=== PATIENT | male | born 1975 | race Caucasian/White ===

== ENCOUNTER 2018-12-10 14:40 | Inpatient (IN) | payer MEDICAID ==
[~2018-12-10] VITALS: Ht 167.6 cm; Wt 67.1 kg
--- NOTE | 2018-12-10 15:07 | NUR ---
Pt arrived for nursing care facility for abnormal lab. Placed pt on vent with current setting. pt is trach with Portex 7. No SOB noted at this time. vent alarm on and audible. vent plugged into red outlet and BMV at bedside.
--- NOTE | 2018-12-10 15:09 | NUR ---
PT IS IN ROOM #1B. DR OVALLE EVALUATED THE PT.
[2018-12-10 15:20] LABS: BASOPHILS % (AUTO) 0.3 % (0.0-2.0); LYMPHOCYTES # (AUTO) 0.4 K/uL (20.0-40.0)
[2018-12-10 15:22] LABS: EOSINOPHILS # (AUTO) 0.4 K/uL (0.0-0.7); EOSINOPHILS % (AUTO) 3.1 % (0.0-7.0); LYMPHOCYTES % (AUTO) 3.8 % (20.5-51.5); MEAN CORPUSCULAR HEMOGLOBIN 25.1 uug (23.8-33.4); MEAN CORPUSCULAR HGB CONC 32 g/dL (32.5-36.3); MEAN CORPUSCULAR VOLUME 77.5 fL (73.0-96.2); MONOCYTES # (AUTO) 0.3 K/uL (2.0-10.0); NEUTROPHILS # (AUTO) 10.4 K/uL (1.8-8.9); NEUTROPHILS % (AUTO) 89.8 % (38.5-71.5); PLATELET COUNT (AUTO) 340 K/uL (152-348); WHITE BLOOD COUNT (AUTO) 11.6 K/uL (3.6-10.2)
[2018-12-10 15:23] LABS: CREATININE 2.7 mg/dL (0.6-1.3); POTASSIUM 3.6 mmol/L (3.5-5.1)
[2018-12-10 15:25] LABS: RED BLOOD CELL COUNT(AUTO) 2.26 MIL/uL (4.06-5.63)
[2018-12-10 15:26] LABS: HEMATOCRIT 17.5 % (36.7-47.1); HEMOGLOBIN 5.7 g/dL (12.5-16.3)
[2018-12-10 15:29] LABS: BILIRUBIN,DIRECT 0.3 mg/dL (0.0-0.2); BILIRUBIN,TOTAL 0.7 mg/dL (0.2-1.0); TOTAL PROTEIN, SERUM 7.1 g/dL (6.4-8.2)
[2018-12-10] MEDS ORDERED: ACET-2605 GT (15:49)
[2018-12-10] MEDS ORDERED: IV NS 1000 ML 1,000 ML IV PRN ×2 (16:07→19:10)
[2018-12-10] MEDS ORDERED: BISA10SU61 RC (16:09)
[2018-12-10] MEDS ORDERED: CHLO473M3 PO (16:09)
[2018-12-10] MEDS ORDERED: EPOE1VIA6 SQ (16:09)
[2018-12-10] MEDS ORDERED: INSU100V7 SQ (16:09)
[2018-12-10] MEDS ORDERED: MULT-213 GT (16:09)
[2018-12-10] MEDS ORDERED: ACET-2154 GT (16:09)
[2018-12-10] MEDS ORDERED: CHLO473M3 TOP (16:09)
[2018-12-10] MEDS ORDERED: ONDA4TAB5 GT (16:09)
[2018-12-10] MEDS ORDERED: NA P133E RC (16:09)
[2018-12-10] MEDS ORDERED: MAGN400O6 GT (16:09)
[2018-12-10] MEDS ORDERED: HYDR-4077 GT (16:09)
[2018-12-10] MEDS ORDERED: ARGI1POW17 GT (16:09)
[2018-12-10] MEDS ORDERED: INSU100V39 SQ (16:09)
[2018-12-10] MEDS ORDERED: SENN-18 GT (16:09)
[2018-12-10] MEDS ORDERED: CHLO25TA2 GT (16:09)
[2018-12-10] MEDS ORDERED: AMLO5TAB9 GT (16:09)
[2018-12-10] MEDS ORDERED: CRAN3875 GT (16:09)
[2018-12-10] MEDS ORDERED: ASCO500P18 GT (16:09)
[2018-12-10] MEDS ORDERED: OMEP20TA5 GT (16:09)
[2018-12-10] MEDS ORDERED: ATROVENT IH (16:09)
[2018-12-10] MEDS ORDERED: ALBU2.5V38 IH ×2 (16:09)
[2018-12-10] MEDS ORDERED: LABE200T5 GT (16:09)
[2018-12-10] MEDS ORDERED: HYDR-3326 GT (16:09)
[2018-12-10] MEDS ORDERED: ONDANSETRON 4 MG/2 ML VIAL IV PRN (16:15)
[2018-12-10] MEDS ORDERED: ACETAMINOPHEN 325 MG TABLET PO PRN (16:15)
[2018-12-10] MEDS ORDERED: INSULIN REGULAR, HUMAN 300 UNITS/3 ML VIAL SQ PRN (16:15)
[2018-12-10] MEDS ORDERED: MAGNESIUM HYDROXIDE 30 ML LIQUID UDC PO PRN (16:15)
[2018-12-10 16:26] LABS: *BILIRUBIN,URIN NEGATIVE (NEGATIVE); *CLARITY,URINE CLOUDY (CLEAR); *COLOR,URINE YELLOW (YELLOW); *KETONES,URINE NEGATIVE (NEGATIVE); *UROBILINOGEN,URINE 0.2 E.U./dl (NORMAL); LEUKOCYTE ESTERASE ,URINE 3+ (NEGATIVE); NITRITE, URINE NEGATIVE (NEGATIVE); PH,URINE 5.5 (5.0-8.0); UGLUCOSE NEGATIVE (NEGATIVE)
[2018-12-10 16:31] LABS: *BLOOD, URINE TRACE (NEGATIVE)
[2018-12-10 16:33] LABS: BACTERIA,URINE MODERATE /HPF (NONE SEEN); SQUAMOUS EPITHELIAL CELL,UR FEW /HPF (NONE SEEN); WBC,URINE 20-50 /HPF (0-3); YEAST,URINE MANY /HPF (NONE SEEN)
[2018-12-10 16:40] LABS: BAND % (MANUAL) 20 % (0-10); EOSINOPHILS % (MANUAL) 4 % (0-8); LYMPHOCYTES % (MANUAL) 3 % (20-40); MONOCYTES % (MANUAL) 3 % (2-10); NEUTROPHILS % (MANUAL) 70 % (42-75)
[2018-12-10] MEDS ORDERED: PIPERACILLIN SODIUM/TAZOBACTAM 3.375 G in IV DEXTROSE 5% 50 ML IV ONE (16:45)
[2018-12-10] MEDS ORDERED: PIPERACILLIN/TAZOBACTAM/D5W 50 ML IV ONE (17:09)
[2018-12-10] MEDS ORDERED: VANCOMYCIN 1G/D5W 200 ML PIGGYBACK IV ONE (17:15)
[2018-12-10] MEDS ORDERED: FUROSEMIDE 40 MG/4 ML VIAL IV ONE (17:15)
[2018-12-10] MEDS ORDERED: VANCOMYCIN IV 200 ML ONE (17:24)
--- NOTE | 2018-12-10 17:30 | NUR ---
PT WAS TRANSFERED TO [facility] ROOM #311. REPORT WAS GIVEN TO YESSENIA BIRMINGHAM.
--- NOTE | 2018-12-10 17:59 | NUR ---
Patient in from ER. via gurney, transfer to bed with no injury. Trache to vent: Portex #8, A/C 18, Tv 400, Peep +5, FIO2 40%. IV line peripheral to RAC G18, LAC G20, both patent and RAC infusing with first dose of vancomycin. Upon admission patient SBP of 143/70, HR of 91, oral temp of 99.6. In ER. medicated for fever of 103.. patient non-verbal if needed picture taken will be endorse as well as blood transfusion. Addendum: 12/10/18 at 1832 by TINY BUENO RN Admitting physician called to be notified of admission awaiting call back.
[2018-12-10 18:00] VITALS: BP 143/70
[2018-12-10] MEDS ORDERED: FLEET ENEMA 133 ML BOTTLE RC PRN (19:00)
[2018-12-10] MEDS ORDERED: BISACODYL 10 MG SUPP.RECT RC PRN (19:00)
[2018-12-10] MEDS ORDERED: ONDANSETRON HCL 4 MG TABLET GT PRN (19:00)
[2018-12-10] MEDS ORDERED: ALBUTEROL SULFATE 2.5 MG/3 ML NEBU IH PRN (19:00)
[2018-12-10] MEDS ORDERED: MAGNESIUM HYDROXIDE 30 ML LIQUID UDC GT PRN (19:00)
--- NOTE | 2018-12-10 19:11 | NUR ---
Bedside report given to serina Saunders pending orders and call back from Attending physician endorse.
[2018-12-10] MEDS ORDERED: IV D5 1/2 NS 1000 ML 1,000 ML IV PRN (19:45)
[2018-12-10 19:55] VITALS: BP 139/65
--- NOTE | 2018-12-10 20:00 | NUR ---
RECEIVED PT OPENS HIS EYES TO NOXIOUS STIMULI. TRACH TO VENT W/ SETTINGS OF AC-18, TV-400, FIO2-40%, PEEP-+5 W/ O2 SAT OF 100%. SUCTIONED VIA TRACH W/ SCANTY AMT. OF TANNISH THICK MUCOUS. G-TUBE INTACT & CLAMPED. 2 HEP LOCK INTACT & PATENT ON R & L AC , FLUSHED W/ NS 3CC. HAD LARGE AMT. OF SOFT BROWNISH , BEDBATH DONE. WOUND CARE ON HIS BOTH INNER BUTTOCKS DONE. REPOSITIONED PT ON HIS SIDE W/ HOB ELEVATED.TEMP -102 ORALLY. COOLING MEASURES APPLIED. CHANGED ORDER OF PO TYLENOL TO SUPP., PT IS NPO.
[2018-12-10] MEDS: ACETAMINOPHEN 650 MG SUPP.RECT RC PRN (20:10)
--- NOTE | 2018-12-10 20:10 | NUR ---
TYLENOL SUPP 650MG GIVEN FOR ELEVATED TEMP.
--- NOTE | 2018-12-10 21:17 | NUR ---
PHARMACY NOTES (VANCOMYCIN DOSING) S: 43 yo male with diagnosis of sepsis of unknown origin, ordered Zosyn and Vancomycin O: BUN/SCR 71/2.7, WBC 11.6, TEMP 103, DOSING WT 157 LBS A/P: PT received Vancomycin 1gm in ER @ 17:16; since SCR is elevated will dose by fall of levels. ordered a level tomorrow ~ 1700 will continue to follow up
--- NOTE | 2018-12-10 21:29 | NUR ---
BLOOD TRANSFUSION STARTED ORDERED.
[2018-12-10 21:30] VITALS: BP 110/73
[2018-12-10 21:45] VITALS: BP 115/71
[2018-12-10] MEDS: Z GUARD REMEDY PASTE 57 GM TUBE TOP SCH (21:48)
[2018-12-10] MEDS: BLOOD SUGAR DIAGNOSTIC 1 EACH STRIP VI SCH ×2 (21:51→21:52)
[2018-12-10] MEDS: hydrALAZINE HCL 50 MG TABLET GT SCH (22:00)
[2018-12-10] MEDS: PIPERACILLIN SODIUM/TAZOBACTAM 3.375 G in IV DEXTROSE 5% 50 ML IV SCH (22:13)
[2018-12-11] VITALS (15 sets, daily range): BP systolic 112–136; BP diastolic 57–79
[2018-12-11] MEDS: ALBUTEROL SULFATE 2.5 MG/3 ML NEBU IH SCH ×4 (00:45→19:31)
--- NOTE | 2018-12-11 01:13 | NUR ---
unable to remove g-tube., resistance noted. will let dr. busch inform in am.
--- NOTE | 2018-12-11 01:35 | NUR ---
sent specimen from g-tube site to lab for culture.
--- NOTE | 2018-12-11 03:40 | NUR ---
2ND UNIT BLOOD TRANSFUSION DONE.
--- NOTE | 2018-12-11 04:07 | NUR ---
PT ON CONT GALINDO VENT WITH PORTEX # [address] AND SECURED, A/C 18, VT 400ML, 40%, PEEP5, PT DOES ASSIST AT TIMES, NO VERBAL RESPONSE, SUCTIONED PINKISH TINGE AND PALE YELL TINGE SECRETIONS, AND SUCTION MOUTH WITH DAQUAN TOLL WELL, ORAL CARE DONE AND TRACH CARE, ALL VENT ALARMS GOOD, NO VENT CHANGES MADE, NEB INLINE X 2 WITH ALBUTEROL, VENT PLUGGED INTO RED OUTLET, WITH CONT PULSE OXY, SAT 100%, AMBU BAG AT BEDSIDE, PT STABLE.Luisa GUERRAP Addendum: 12/11/18 at 0410 by BUBBA MARTÍNEZ RT Amended: Links added.
[2018-12-11] MEDS: hydrALAZINE HCL 50 MG TABLET GT SCH ×3 (05:20→21:32)
[2018-12-11] MEDS: PIPERACILLIN SODIUM/TAZOBACTAM 3.375 G in IV DEXTROSE 5% 50 ML IV SCH ×3 (05:35→21:32)
[2018-12-11] MEDS: PANTOPRAZOLE SODIUM 40 MG TABLET.DR PO SCH (06:07)
[2018-12-11] MEDS: BLOOD SUGAR DIAGNOSTIC 1 EACH STRIP VI SCH ×4 (06:32→20:58)
[2018-12-11 07:04] LABS: CREATININE 2.8 mg/dL (0.6-1.3); PHOSPHOROUS 4.6 mg/dL (2.5-4.9); POTASSIUM 3.6 mmol/L (3.5-5.1)
[2018-12-11 07:10] LABS: BASOPHILS % (AUTO) 0.3 % (0.0-2.0); EOSINOPHILS # (AUTO) 0.5 K/uL (0.0-0.7); EOSINOPHILS % (AUTO) 4.4 % (0.0-7.0); LYMPHOCYTES # (AUTO) 0.8 K/uL (20.0-40.0); LYMPHOCYTES % (AUTO) 7.1 % (20.5-51.5); MEAN CORPUSCULAR HEMOGLOBIN 26.3 uug (23.8-33.4); MEAN CORPUSCULAR HGB CONC 33 g/dL (32.5-36.3); MEAN CORPUSCULAR VOLUME 80.1 fL (73.0-96.2); MONOCYTES # (AUTO) 0.5 K/uL (2.0-10.0); MONOCYTES % (AUTO) 4.4 % (0.0-11.0); NEUTROPHILS # (AUTO) 9.4 K/uL (1.8-8.9); NEUTROPHILS % (AUTO) 83.8 % (38.5-71.5); PLATELET COUNT (AUTO) 315 K/uL (152-348); WHITE BLOOD COUNT (AUTO) 11.2 K/uL (3.6-10.2)
[2018-12-11 07:30] LABS: MAGNESIUM 4.5 mg/dL (1.8-2.4)
[2018-12-11 07:31] LABS: HEMOGLOBIN 7.1 g/dL (12.5-16.3)
[2018-12-11 07:32] LABS: HEMATOCRIT 21.6 % (36.7-47.1)
--- NOTE | 2018-12-11 07:37 | NUR ---
PT RECEIVED TRACH TO VENT ON CMV, PORTEX #8 TRACH IS PATENT AND SECURE. PT IS ON A GALINDO VENT ON SETTINGS OF A/C 18, VT 400, PEEP +5, AND 40% FIO2. VENT PARAMETERS AND ALARMS CHECKED, ALARMS ARE AUDIBLE. PT IS TOLERATING VENT WELL, NO SOB NOTED. BVM AT BEDSIDE. VENT PLUGGED INTO RED OUTLET. SUCTION PRN. WILL CONTINUE TO MONITOR.
[2018-12-11] MEDS: CHLORHEXIDINE GLUCONATE 15 ML MOUTHWASH MM SCH ×2 (09:00→18:03)
[2018-12-11] MEDS: CHLORTHALIDONE 25 MG TABLET GT SCH (09:00)
[2018-12-11] MEDS: AMLODIPINE 5 MG TABLET GT SCH (09:00)
[2018-12-11] MEDS ORDERED: Medication Not On Formulary EA (Omeprazole 20 MG) GT SCH (09:00)
[2018-12-11] MEDS: SENNOSIDES 1 TABLET GT SCH ×2 (09:00→17:00)
[2018-12-11] MEDS: Z GUARD REMEDY PASTE 57 GM TUBE TOP SCH ×2 (09:00→20:49)
[2018-12-11] MEDS ORDERED: MAGNESIUM HYDROXIDE 30 ML LIQUID UDC GT PRN (10:08)
[2018-12-11] MEDS ORDERED: VANCOMYCIN IV 1,000 MG in IV DEXTROSE 5% 250 ML IV ONE (12:00)
--- NOTE | 2018-12-11 13:47 | NUR ---
PHARMACY NOTES (VANCOMYCIN DOSING) S: 43 yo male with diagnosis of sepsis of unknown origin, ordered Zosyn and Vancomycin O: BUN/SCR 74/2.8, WBC 11.6 (12/10), TEMP 100.3, DOSING WT 157 LBS Random level today with am labs: 18.1 A/P: Due to reduced renal function, will continue to dose per level at this time. Per today's random, dosed another 1gm vanco today at 1200. Will check renal function in am and decide when to order next random for further dosing. Will continue to follow
[2018-12-11] MEDS ORDERED: IV NORMAL SALINE 1000 ML BAG IV ONE ×2 (14:05)
[2018-12-11] MEDS ORDERED: ACETAMINOPHEN 650 MG SUPP.RECT RC PRN (14:15)
[2018-12-11] MEDS: ACETAMINOPHEN 650 MG SUPP.RECT RC PRN ×2 (14:18→23:56)
--- NOTE | 2018-12-11 14:55 | NUR ---
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 DEFER TO MD FOR G TUBE (CLAMPED). FIRST STEP LOW AIRLOSS MATTRESS ORDERED. ALL SKIN PROTECTION AND WOUND CARE RECOMMENDATIONS MADE AND DISCUSSED WITH NURSING STAFF. WILL SEE JAXON. IN AGREEMENT WITH PLAN OF CARE. Addendum: 12/11/18 at 1457 by GIULIANO STOVALL RN Amended: Links added.
[2018-12-11] MEDS ORDERED: POLYMYXIN B SULFATE 500,000 UNITS, BACITRACIN 50,000 UNITS, NORMAL SALINE 20 ML MC ONE ×3 (17:00)
[2018-12-11] MEDS ORDERED: LIDOCAINE HCL 1% 20 ML VIAL ONE (18:06)
[2018-12-11] MEDS ORDERED: BUPIVACAINE/EPI PF 0.25% 30 ML VIAL ONE (18:07)
[2018-12-11] MEDS: IV D5/ 0.9% NACL 1,000 ML IV PRN (19:11)
--- NOTE | 2018-12-11 20:59 | NUR ---
NPO / surgery. Accucheck 137; held coverage. software implementation project manager aware.
[2018-12-12] VITALS: BP 132/73
[2018-12-12] MEDS: ALBUTEROL SULFATE 2.5 MG/3 ML NEBU IH SCH ×4 (01:10→20:17)
[2018-12-12 04:00] VITALS: BP 127/70
[2018-12-12] MEDS: PANTOPRAZOLE SODIUM 40 MG TABLET.DR PO SCH (05:42)
[2018-12-12] MEDS: PIPERACILLIN SODIUM/TAZOBACTAM 3.375 G in IV DEXTROSE 5% 50 ML IV SCH ×3 (05:42→21:24)
[2018-12-12] MEDS: BLOOD SUGAR DIAGNOSTIC 1 EACH STRIP VI SCH ×4 (06:17→21:23)
[2018-12-12 06:39] LABS: BASOPHILS % (AUTO) 0.4 % (0.0-2.0); EOSINOPHILS # (AUTO) 0.8 K/uL (0.0-0.7); HEMATOCRIT 24.7 % (36.7-47.1); HEMOGLOBIN 8.5 g/dL (12.5-16.3); LYMPHOCYTES # (AUTO) 0.8 K/uL (20.0-40.0); LYMPHOCYTES % (AUTO) 7.2 % (20.5-51.5); MEAN CORPUSCULAR HEMOGLOBIN 27.7 uug (23.8-33.4); MEAN CORPUSCULAR HGB CONC 34 g/dL (32.5-36.3); MEAN CORPUSCULAR VOLUME 80.6 fL (73.0-96.2); MONOCYTES # (AUTO) 0.4 K/uL (2.0-10.0); MONOCYTES % (AUTO) 3.9 % (0.0-11.0); NEUTROPHILS # (AUTO) 8.8 K/uL (1.8-8.9); NEUTROPHILS % (AUTO) 81.5 % (38.5-71.5); PLATELET COUNT (AUTO) 363 K/uL (152-348); RED BLOOD CELL COUNT(AUTO) 3.06 MIL/uL (4.06-5.63); WHITE BLOOD COUNT (AUTO) 10.9 K/uL (3.6-10.2)
[2018-12-12 06:55] LABS: CREATININE 2.6 mg/dL (0.6-1.3); PHOSPHOROUS 3.7 mg/dL (2.5-4.9); POTASSIUM 3.5 mmol/L (3.5-5.1)
[2018-12-12 06:58] LABS: MAGNESIUM 4.3 mg/dL (1.8-2.4)
--- NOTE | 2018-12-12 07:10 | NUR ---
seen by dr paige, no new orders Addendum: 12/12/18 at 1028 by ONEIL MARIE RN Amended: Isabella added. Addendum: 12/12/18 at 1029 by ONEIL MARIE RN Amended: Isabella added.
[2018-12-12 07:19] LABS: ABG BASE EXCESS -0.6 mmol/L; ABG HCO3 23.5 mmol/L; ABG PH 7.433 (7.350-7.450); ABG PO2 52.1 mmHg (75.0-100.0); ABG SITE RIGHT RADIAL; ABG TOTAL HEMOGLOBIN 8.5 G/dL (13.5-18.0); COHb 1.8 % (0.5-1.5); MetHb 0.4 % (0.0-1.5); O2Hb 86.1 % (94.0-97.0); VENT MODE VENT - A/C; VT, ABG 400 mL
--- NOTE | 2018-12-12 07:30 | NUR ---
report received from Yang CASAS. 43 yr old male was admitted on 12/10/17 for ARF, UTI, Anemia. patient is quadriplegic, trach to vent, ac 40%, ac 18, [id number] tv 400. is NPO. IV fluid D5NS 70ml/hr via left AC #20. has galindo catheter.intact. ekg is sinus rhythm Addendum: 12/12/18 at 0801 by ONEIL MARIE RN Amended: Links added.
[2018-12-12 07:39] VITALS: BP 139/74
[2018-12-12] MEDS: AMLODIPINE 5 MG TABLET GT SCH (09:00)
[2018-12-12] MEDS: CHLORTHALIDONE 25 MG TABLET GT SCH (09:00)
[2018-12-12] MEDS: SENNOSIDES 1 TABLET GT SCH ×2 (09:00→17:00)
--- NOTE | 2018-12-12 09:00 | NUR ---
seen by gabriela hodge orders Addendum: 12/12/18 at 1029 by ONEIL MARIE RN Amended: Links added.
[2018-12-12] MEDS: ACETAMINOPHEN 650 MG SUPP.RECT RC PRN (09:03)
[2018-12-12] MEDS: IV D5/ 0.9% NACL 1,000 ML IV PRN (09:10)
[2018-12-12] MEDS: CHLORHEXIDINE GLUCONATE 15 ML MOUTHWASH MM SCH ×2 (09:17→17:00)
[2018-12-12] MEDS: Z GUARD REMEDY PASTE 57 GM TUBE TOP SCH ×2 (09:22→21:23)
--- NOTE | 2018-12-12 10:18 | NUR ---
medicated with tylenol for fever temp 102.2 Addendum: 12/12/18 at 1019 by ONEIL MARIE RN Amended: Links added.
--- NOTE | 2018-12-12 11:36 | NUR ---
PT RECEIVED TRACH TO VENT ON CMV, PORTEX #8 TRACH IS PATENT AND SECURE. PT IS ON A GALINDO VENT ON SETTINGS OF A/C 18, VT 400, PEEP +5, AND 40% FIO2. VENT PARAMETERS AND ALARMS CHECKED, ALARMS ARE AUDIBLE. PT IS TOLERATING VENT WELL, NO SOB NOTED. BVM AT BEDSIDE. VENT PLUGGED INTO RED OUTLET. SUCTION PRN. INCREASED FIO2 POST ABG
--- NOTE | 2018-12-12 11:46 | NUR ---
code sepsis called for persistent fever. repeat ultures drawn, urine sent . lactic acid drawn Addendum: 12/12/18 at 1147 by ONEIL MARIE RN Amended: Links added. Addendum: 12/12/18 at 1147 by ONEIL MARIE RN Amended: Links added. Addendum: 12/12/18 at 1148 by ONEIL MARIE RN Amended: Links added.
--- NOTE | 2018-12-12 11:48 | NUR ---
seen by Ekta GONZALEZ for ID Addendum: 12/12/18 at 1148 by ONEIL MARIE RN Amended: Links added.
[2018-12-12 12:01] LABS: *BILIRUBIN,URIN NEGATIVE (NEGATIVE); *BLOOD, URINE 2+ (NEGATIVE); *CLARITY,URINE CLEAR (CLEAR); *COLOR,URINE YELLOW (YELLOW); *KETONES,URINE NEGATIVE (NEGATIVE); *UROBILINOGEN,URINE 0.2 E.U./dl (NORMAL); LEUKOCYTE ESTERASE ,URINE TRACE (NEGATIVE); NITRITE, URINE NEGATIVE (NEGATIVE); PH,URINE 5.5 (5.0-8.0); UGLUCOSE NEGATIVE (NEGATIVE)
[2018-12-12] MEDS: INSULIN REGULAR, HUMAN 300 UNIT/3 ML VIAL SQ PRN (12:02)
--- NOTE | 2018-12-12 12:05 | NUR ---
accucheck 160, covered with 2 units humulin R SQ
[2018-12-12 12:09] LABS: BACTERIA,URINE FEW /HPF (NONE SEEN); RBC,URINE 50-80 /HPF (0-3); SQUAMOUS EPITHELIAL CELL,UR MODERATE /HPF (NONE SEEN)
[2018-12-12 12:10] LABS: YEAST,URINE MANY /HPF (NONE SEEN)
[2018-12-12 12:14] VITALS: BP 141/80
--- NOTE | 2018-12-12 13:31 | NUR ---
HARMACY NOTES (VANCOMYCIN DOSING) S: 43 yo male with diagnosis of sepsis of unknown origin, MD ordered Zosyn and Vancomycin O: BUN/SCR 72/2.6, WBC 10.9 , TEMP 102.2, DOSING WT 157 LBS Random level 12/12 at 0600:26 A/P: Due to reduced renal function, will continue to dose per level at this time. Per today's random, no dosed will be given today. Another random is on order for tomorrow at 0600. Will follow the level for further dosing.
[2018-12-12] MEDS: hydrALAZINE HCL 50 MG TABLET GT SCH ×2 (14:00→21:23)
[2018-12-12] MEDS ORDERED: FENTANYL CITRATE 100 MCG/2 ML AMPUL ONE (14:35)
[2018-12-12] MEDS ORDERED: ONDANSETRON 4 MG/2 ML VIAL ONE (14:35)
--- NOTE | 2018-12-12 15:40 | NUR ---
from PACU post incision and drainage done by dr pepe. patient dressing [id number] for bloody drainage. Addendum: 12/12/18 at 1557 by ONEIL MARIE RN Amended: Links added.
[2018-12-12 15:58] VITALS: BP 154/84
--- NOTE | 2018-12-12 18:00 | NUR ---
report given to Esha Capps RN
[2018-12-12 20:00] VITALS: BP 165/96
[2018-12-12 20:49] LABS: BASOPHILS # (AUTO) 0.1 K/uL (0.0-8.0); BASOPHILS % (AUTO) 0.6 % (0.0-2.0); EOSINOPHILS # (AUTO) 0.3 K/uL (0.0-0.7); EOSINOPHILS % (AUTO) 2.2 % (0.0-7.0); HEMATOCRIT 21.9 % (36.7-47.1); LYMPHOCYTES # (AUTO) 0.9 K/uL (20.0-40.0); LYMPHOCYTES % (AUTO) 6.7 % (20.5-51.5); MEAN CORPUSCULAR HEMOGLOBIN 26.6 uug (23.8-33.4); MEAN CORPUSCULAR HGB CONC 33 g/dL (32.5-36.3); MEAN CORPUSCULAR VOLUME 79.9 fL (73.0-96.2); MONOCYTES # (AUTO) 0.7 K/uL (2.0-10.0); MONOCYTES % (AUTO) 5.1 % (0.0-11.0); NEUTROPHILS # (AUTO) 11.4 K/uL (1.8-8.9); NEUTROPHILS % (AUTO) 85.4 % (38.5-71.5); PLATELET COUNT (AUTO) 391 K/uL (152-348); RED BLOOD CELL COUNT(AUTO) 2.74 MIL/uL (4.06-5.63); WHITE BLOOD COUNT (AUTO) 13.4 K/uL (3.6-10.2)
[2018-12-12 20:51] LABS: CREATININE 2.5 mg/dL (0.6-1.3); HEMOGLOBIN 7.3 g/dL (12.5-16.3); POTASSIUM 3.7 mmol/L (3.5-5.1)
[2018-12-12 20:55] LABS: MAGNESIUM 3.7 mg/dL (1.8-2.4); PHOSPHOROUS 3.4 mg/dL (2.5-4.9)
[2018-12-12] MEDS ORDERED: MORPHINE SULFATE 2 MG/1 ML DISP.SYRIN IV STA (21:02)
[2018-12-12] MEDS ORDERED: MORPHINE SULFATE 2 MG/1 ML DISP.SYRIN ONE (21:09)
[2018-12-12] MEDS: hydrALAZINE HCL 20 MG/1 ML VIAL IV PRN (21:31)
[2018-12-13] VITALS (10 sets, daily range): BP systolic 142–156; BP diastolic 81–95
[2018-12-13] MEDS: ACETAMINOPHEN 650 MG SUPP.RECT RC PRN ×3 (00:12→20:11)
[2018-12-13] MEDS: ALBUTEROL SULFATE 2.5 MG/3 ML NEBU IH SCH ×4 (01:26→19:24)
--- NOTE | 2018-12-13 01:28 | NUR ---
Trached resident endorsed on Merida Vent with ordered vent settings of AC 18, vt 400, +5, 40%. He is trached with a cuffed Portex 8. NET FISHER used for cuff inflation. Airway patent and secured at midline. Treatments administered and tolerated well, no adverse reactions noted. Oral care/ Trach care rendered. Will continue to monitor throughout shift.
[2018-12-13] MEDS: IV D5/ 0.9% NACL 1,000 ML IV PRN ×2 (02:54→21:18)
[2018-12-13] MEDS: PIPERACILLIN SODIUM/TAZOBACTAM 3.375 G in IV DEXTROSE 5% 50 ML IV SCH ×3 (05:15→21:15)
[2018-12-13] MEDS: hydrALAZINE HCL 50 MG TABLET GT SCH ×3 (05:27→21:01)
[2018-12-13 05:31] LABS: CREATININE 2.4 mg/dL (0.6-1.3); MAGNESIUM 3.5 mg/dL (1.8-2.4); PHOSPHOROUS 3.2 mg/dL (2.5-4.9); POTASSIUM 3.6 mmol/L (3.5-5.1); VANCOMYCIN,RANDOM 14.4 ug/mL (18.0-26.0)
[2018-12-13 05:34] LABS: BASOPHILS # (AUTO) 0.1 K/uL (0.0-8.0); BASOPHILS % (AUTO) 0.4 % (0.0-2.0); EOSINOPHILS # (AUTO) 0.2 K/uL (0.0-0.7); EOSINOPHILS % (AUTO) 1.1 % (0.0-7.0); LYMPHOCYTES # (AUTO) 1.1 K/uL (20.0-40.0); LYMPHOCYTES % (AUTO) 7.9 % (20.5-51.5); MEAN CORPUSCULAR HEMOGLOBIN 27.1 uug (23.8-33.4); MEAN CORPUSCULAR HGB CONC 33 g/dL (32.5-36.3); MEAN CORPUSCULAR VOLUME 81.6 fL (73.0-96.2); MONOCYTES # (AUTO) 1.1 K/uL (2.0-10.0); MONOCYTES % (AUTO) 7.5 % (0.0-11.0); NEUTROPHILS # (AUTO) 11.7 K/uL (1.8-8.9); NEUTROPHILS % (AUTO) 83.1 % (38.5-71.5); PLATELET COUNT (AUTO) 398 K/uL (152-348); WHITE BLOOD COUNT (AUTO) 14.1 K/uL (3.6-10.2)
[2018-12-13 05:41] LABS: HEMATOCRIT 18.7 % (36.7-47.1); HEMOGLOBIN 6.2 g/dL (12.5-16.3)
[2018-12-13] MEDS: PANTOPRAZOLE SODIUM 40 MG TABLET.DR PO SCH (06:22)
[2018-12-13] MEDS: BLOOD SUGAR DIAGNOSTIC 1 EACH STRIP VI SCH ×4 (06:23→21:00)
--- NOTE | 2018-12-13 08:00 | NUR ---
Pt received on continuous mechanical ventilation via Trach. Pt is on Merida ventilator with ordered settings of A/C-18, VT-400, PEEP+5, FIO2-40% Tolerating vent settings well. No signs or symptoms of respiratory distress noted. Trach is Portex 8, patent and secure. In-line nebulizer Treatments given Q6 as ordered. Treatments tolerated well, with no adverse reactions noted. Sxn'd and lavaged as needed. Vent alarm parameters checked, on and audible. Vent plugged into emergency red outlet. Bag/valve/mask and back up trach at bedside. Will continue to monitor Pt.
--- NOTE | 2018-12-13 08:25 | NUR ---
PHARMACY NOTES (VANCOMYCIN DOSING) S: 43 yo male with diagnosis of sepsis possibly due to malpositioned g-tube with suspected abscess. MD ordered Zosyn and Vancomycin O: BUN/SCR 62/2.4, WBC 14.1 , TEMP 100.4, DOSING WT 157 LBS Random level 12/12 at 0600:26 vancomycin random 12/13 at 0600:14.4 A/P: Due to reduced renal function, will continue to dose per level at this time. Per today's random, Vancomycin 1 gram x1 will be given today(scheduled to give at 900). Rx will decide another random once am labs available. Will follow daily.
[2018-12-13] MEDS ORDERED: VANCOMYCIN IV 1,000 MG in IV DEXTROSE 5% 250 ML IV ONE (09:00)
[2018-12-13] MEDS: CHLORHEXIDINE GLUCONATE 15 ML MOUTHWASH MM SCH ×2 (09:00→16:10)
[2018-12-13] MEDS: CHLORTHALIDONE 25 MG TABLET GT SCH (09:00)
[2018-12-13] MEDS: AMLODIPINE 5 MG TABLET GT SCH (09:00)
[2018-12-13] MEDS: SENNOSIDES 1 TABLET GT SCH ×2 (09:00→16:10)
[2018-12-13] MEDS: Z GUARD REMEDY PASTE 57 GM TUBE TOP SCH ×2 (09:02→21:01)
--- NOTE | 2018-12-13 09:45 | NUR ---
1 unit of PRBC started. Will closely monitor pt for any adverse reactions first 15min.
[2018-12-13 09:48] LABS: EOSINOPHILS % (MANUAL) 3 % (0-8); LYMPHOCYTES % (MANUAL) 8 % (20-40); MONOCYTES % (MANUAL) 9 % (2-10); NEUTROPHILS % (MANUAL) 80 % (42-75)
--- NOTE | 2018-12-13 10:00 | NUR ---
Pt tolerating blood transfusion well. No adverse reactions noted during the first 15min. Will continue to monitor.
--- NOTE | 2018-12-13 12:00 | NUR ---
CARLOS Dash here to see pt. Full report given. New orders received.
--- NOTE | 2018-12-13 12:30 | NUR ---
1 unit of PRBC completed. Pt tolerated blood transfusion well and no adverse reactions noted. VSS wnl.
[2018-12-13 14:15] LABS: HEMATOCRIT 22.4 % (36.7-47.1)
[2018-12-13 14:19] LABS: HEMOGLOBIN 7.4 g/dL (12.5-16.3)
--- NOTE | 2018-12-13 15:17 | NUR ---
Spoke with Dr. Michele on the telephone regarding pt's H/H levels after 1 unit of PRBC transfusion. No new orders received. No more blood to be given at this time per MD.
[2018-12-13] MEDS: INSULIN REGULAR, HUMAN 300 UNIT/3 ML VIAL SQ PRN (16:39)
[2018-12-13] MEDS: hydrALAZINE HCL 20 MG/1 ML VIAL IV PRN (21:21)
[2018-12-14] VITALS (14 sets, daily range): BP systolic 145–160; BP diastolic 79–89
[2018-12-14] MEDS: ALBUTEROL SULFATE 2.5 MG/3 ML NEBU IH SCH ×4 (02:07→19:36)
[2018-12-14] MEDS: hydrALAZINE HCL 50 MG TABLET GT SCH ×3 (02:54→21:16)
[2018-12-14] MEDS: PANTOPRAZOLE SODIUM 40 MG TABLET.DR PO SCH (02:55)
--- NOTE | 2018-12-14 03:31 | NUR ---
RECEIVED PT ON GALINDO VENTILATOR VIA TRACH. PT IS ON THE FOLLOWING SETTINGS THAT ARE CHARTED ON THE MECHANICAL VENT NOTES. PT HAS PORTEX 8 TRACH TUBE AND IS PATENT AND SECURED WITH TRACH TIES. HHN TX'S GIVEN PER MD ORDER'S AND WERE TOLERATED WELL WITH NO ADVERSE REACTIONS. SUCTIONED SMALL AMOUNTS OF WHITE AND YELLOW SECRETIONS. TRACH CARE DONE. HME CHANGED. VENT ALARMS CHECKED AND THEY ARE ON AND AUDIBLE. VENT IS PLUGGED IN THE RED OUTLET. AMBU BAG AND BACK UP TRACH IS BY BEDSIDE. PT IS TOLERATING CURRENT VENT SETTINGS WELL AT THIS TIME. WILL CONTINUE TO MONITOR PT.
[2018-12-14] MEDS: ACETAMINOPHEN 650 MG SUPP.RECT RC PRN ×2 (04:23→09:33)
[2018-12-14] MEDS: Z GUARD REMEDY PASTE 57 GM TUBE TOP PRN (04:42)
[2018-12-14 05:02] LABS: LYMPHOCYTES # (AUTO) 1.4 K/uL (20.0-40.0)
[2018-12-14 05:04] LABS: BASOPHILS # (AUTO) 0.1 K/uL (0.0-8.0); BASOPHILS % (AUTO) 0.4 % (0.0-2.0); EOSINOPHILS # (AUTO) 0.1 K/uL (0.0-0.7); EOSINOPHILS % (AUTO) 0.9 % (0.0-7.0); LYMPHOCYTES % (AUTO) 9.2 % (20.5-51.5); MEAN CORPUSCULAR HEMOGLOBIN 27.4 uug (23.8-33.4); MEAN CORPUSCULAR HGB CONC 33 g/dL (32.5-36.3); MEAN CORPUSCULAR VOLUME 82.5 fL (73.0-96.2); MONOCYTES % (AUTO) 6.6 % (0.0-11.0); NEUTROPHILS # (AUTO) 12.9 K/uL (1.8-8.9); NEUTROPHILS % (AUTO) 82.9 % (38.5-71.5); PLATELET COUNT (AUTO) 433 K/uL (152-348); WHITE BLOOD COUNT (AUTO) 15.6 K/uL (3.6-10.2)
[2018-12-14 05:11] LABS: BILIRUBIN,TOTAL 1.6 mg/dL (0.2-1.0); CREATININE 2.4 mg/dL (0.6-1.3); MAGNESIUM 3.4 mg/dL (1.8-2.4); PHOSPHOROUS 2.6 mg/dL (2.5-4.9); TOTAL PROTEIN, SERUM 6.7 g/dL (6.4-8.2)
[2018-12-14 05:27] LABS: RED BLOOD CELL COUNT(AUTO) 2.39 MIL/uL (4.06-5.63)
[2018-12-14 05:29] LABS: HEMATOCRIT 19.7 % (36.7-47.1); HEMOGLOBIN 6.5 g/dL (12.5-16.3)
[2018-12-14 05:57] LABS: BAND % (MANUAL) 5 % (0-10); LYMPHOCYTES % (MANUAL) 5 % (20-40); METAMYELOCYTES % 3 % (0-1); MONOCYTES % (MANUAL) 1 % (2-10); MYELOCYTES % 1 % (0-0); NEUTROPHILS % (MANUAL) 84 % (42-75); PROMYELOCYTES % 1 %
[2018-12-14] MEDS: PIPERACILLIN SODIUM/TAZOBACTAM 3.375 G in IV DEXTROSE 5% 50 ML IV SCH (06:34)
--- NOTE | 2018-12-14 07:40 | NUR ---
RECEIVED PT IN CCU AND ASSISTED RNJULIET, WITH PATIENT TRANSPORTATION SAFELY TO [facility] ROOM 312. PATIENT IS ON A VENT WITH SETTINGS OF AC18, VT400, +5, 40% FIO2. VENT ALARMS ARE ON AND AUDIBLE. VENT IS PLUGGED INTO RED EMERGENCY OUTLET. NO SHORTNESS OF BREATH NOTED. SUCTIONED PRN FOR SMALL THIN CLEAR/WHITE SECRETIONS. PATIENT HAS A PORTEX 8 TRACH TUBE MIDLINE, PATENT AND SECURED WITH A FOAM TRACH TIE. TX TOLERATED WELL. AMBUBAG/BACK UP TRACH AT PATIENT BEDSIDE. WILL CONTINUE TO MONITOR AND REPORT ANY CHANGES.
--- NOTE | 2018-12-14 08:30 | NUR ---
Received pt from CCU transferred to [facility]. Pt non responsive. SINUS TACH on tele 105. Pt has vertical nystagmus, eyes moving up and down. Dr Michele aware that pt does not have gtube and unable to give gt meds. Pt quadriplegic and placid on all extremities. F/u of [employer] air Mattress. RT suctioned patient with minimal secretion noted.
[2018-12-14] MEDS: AMLODIPINE 5 MG TABLET GT SCH (09:00)
[2018-12-14] MEDS: CHLORTHALIDONE 25 MG TABLET GT SCH (09:00)
[2018-12-14] MEDS: CHLORHEXIDINE GLUCONATE 15 ML MOUTHWASH MM SCH ×2 (09:00→16:52)
[2018-12-14] MEDS: SENNOSIDES 1 TABLET GT SCH ×2 (09:00→16:52)
[2018-12-14] MEDS: PANTOPRAZOLE SODIUM 40 MG VIAL IV SCH (09:13)
[2018-12-14] MEDS: IV D5 1/2 NS 1000 ML 1,000 ML IV SCH ×2 (09:14→17:58)
[2018-12-14] MEDS: Z GUARD REMEDY PASTE 57 GM TUBE TOP SCH ×2 (09:14→20:20)
[2018-12-14] MEDS: BLOOD SUGAR DIAGNOSTIC 1 EACH STRIP VI SCH ×4 (09:14→23:10)
[2018-12-14] MEDS: INSULIN REGULAR, HUMAN 300 UNIT/3 ML VIAL SQ PRN ×4 (09:30→23:11)
[2018-12-14] MEDS ORDERED: VANCOMYCIN IV 1,000 MG in IV DEXTROSE 5% 250 ML IV ONE (09:30)
[2018-12-14] MEDS ORDERED: MEROPENEM 1 G in IV NORMAL SALINE 100 ML IV SCH (10:30)
[2018-12-14] MEDS: MEROPENEM 1 G in IV NORMAL SALINE 100 ML IV SCH ×2 (10:47→22:29)
[2018-12-14] MEDS: FUROSEMIDE 40 MG/4 ML VIAL IV SCH (10:49)
--- NOTE | 2018-12-14 12:00 | NUR ---
Pt temperature trending up even with tylenol given earlier and cooling measures. Gave pt ice bath. will monitor patient. ID aware of elevated temp. New orders received and carried out.
[2018-12-14] MEDS: SODIUM HYPOCHLORITE 0.125% 473 ML BOTTLE TP SCH (12:54)
[2018-12-14] MEDS ORDERED: TPN/PPN PER PHARMACY IV PRN (13:15)
--- NOTE | 2018-12-14 14:16 | NUR ---
PHARMACY NOTES (VANCOMYCIN DOSING) S: 43 yo male with diagnosis of sepsis possibly due to malpositioned g-tube with suspected abscess. MD ordered Zosyn and Vancomycin O: BUN/SCR 52/2.4, WBC 15.6 , TEMP 100.4, DOSING WT 157 LBS Random level 12/12 at 0600:26 vancomycin random 12/13 at 0600:14.4 vancomycin random 12/14 at 0440: 17.8 vancomycin random 12/15 pending 0600 A/P: Due to reduced renal function, will continue to dose per level at this time. Per today's random, Vancomycin 1 gram x1 will be given today(scheduled to give at 930). Next random pending for tomorrow am at 0600. Will check when available and re-dose as needed. Will follow
--- NOTE | 2018-12-14 15:00 | NUR ---
pt afebrile now cooling measure effective. Blood transfusion to start.
[2018-12-14] MEDS ORDERED: POTASSIUM PHOSPHATE MM IV PRN ×6 (16:30)
[2018-12-14] MEDS ORDERED: SODIUM ACETATE IV PRN ×6 (16:30)
[2018-12-14] MEDS ORDERED: [UNRECOGNIZED DRUG - OTHER] IV PRN ×6 (16:30)
--- NOTE | 2018-12-14 16:43 | NUR ---
[facility] PHARMACY NOTES (TPN per pharmacy) Subjective: 43 y/o male presented with fever and significant anemia, possible sepsis. pt was found to have malposition G-tube with abdominal abscess. PT had surgery for GT removal, incision of abdominal wall abscess and necrotic tissue. per wound care note, he has left buttock stage 2 PI. Since & surgjenifer anticipated more days without tube feeding, they decided to place pt on TPN until G-tube insertion possible. Aircraft Maintenance Engineer recommendation: Rec TPN goal: D10%, AA 4.25% @ 70ml/hr + IL 20% 250ml daily. At goal would provide 1357 kcal and 71gm protein When TPN initiated, start at 20ml/hr and increase 10ml q4hr as pt tolerates until reach goal rate. Objective: Na 147, K 4.0, CL 112, CO2 25, BUN/SCR 52/2.4, CA 8.2, MAG 3.4, PHOS 2.6, ALBUMIN 2.0, GLUCOSE 162, CURRENT WT 150 LBS Assessment/Plan: 1) Will start TPN bag #1 as D10% + AA 4.25% at a rate of 20 ml/hr and increase by 10 ml/hr every 4hrs to trina rate of 70ml/hr. will add 77 meq of Na acetate, 6 mmol of Kphos + MVI 10ml and trace elements 1 ml. 2) will decrease current rate of IV D 5 1/2 NS to 50 ml/hr and plan to d/c by tomorrow morning. 3) will order Triglycerides in addition to chem 8 for tomorrow before initiating lipids. 4)pt currently on accuck achs with regular insulin sliding scale will continue to monitor and adjust the electrolytes and TPN as the need arise. Addendum: 12/14/18 at 1942 by LYNSEY DIMAS ADM changed sliding scale from moderate ACHS to mild sliding scale q6h prn
[2018-12-14 17:26] LABS: IRON, SERUM 22 ug/dL (50-175)
[2018-12-14 17:39] LABS: FERRITIN 604 ng/mL (26-388)
--- NOTE | 2018-12-14 18:30 | NUR ---
Blood transfusion done. no reaction noted. Pt more awake and responsive. Pt nods yes or do to questions. Pt denies any c/o pain. IV site intact on both left and right AC. I bed delivered and received.
--- NOTE | 2018-12-14 19:37 | NUR ---
Received pt on Merida ventilator with the following settings of AC-18, Vt-400, PEEP+5, FIO2-40%, trached with Portex#8 cuffed trach, which is in the place and secure. No s/s of respiratory distress noted. Airway care done, pt responded to physical stimuli. In-line HHN tx with 2.5mg Albuterol given, pt tolerated well. Pt placed on cont. pulse ox. Resus. bag and back up trach at bedside. Vent and alarms checked and reset.
[2018-12-14] MEDS ORDERED: DEXTROSE 50% 50 ML DISP.SYRIN IV PRN (19:45)
--- NOTE | 2018-12-14 19:56 | NUR ---
Urine specimen obtain and sent to lab.
[2018-12-14] MEDS ORDERED: IV D5 1/2 NS 1000 ML 1,000 ML IV PRN (20:00)
--- NOTE | 2018-12-14 20:00 | NUR ---
Received patient lying in bed. patient with eyes open. Pt has vertical nystagmus, eyes moving up and down. Able to nod head when spoken to. Afebrile. NSR on tele 74/min. Patient quadriplegic and placid on all extremities. Able to move feet to touch. Trach tube Portex #[address] and secure properly. Patient on mechanical vent with a setting of AC 18, TV 400, PEEP +5 and FiO2 40%. Continuous pulse ox on, O2 sat at 100%. IV site on right AC and left AC intact and patent. IVF infusing on left AC. Will start TPN on right AC. Abdominal binder in place. Nunn catheter intact and draining via gravity. Isolation precaution observed. Turn and reposition for comfort. Continue to monitor.
[2018-12-14 21:10] LABS: *BILIRUBIN,URIN NEGATIVE (NEGATIVE); *BLOOD, URINE 1+ (NEGATIVE); *CLARITY,URINE CLOUDY (CLEAR); *COLOR,URINE YELLOW (YELLOW); *KETONES,URINE NEGATIVE (NEGATIVE); *UROBILINOGEN,URINE 0.2 E.U./dl (NORMAL); LEUKOCYTE ESTERASE ,URINE 1+ (NEGATIVE); NITRITE, URINE NEGATIVE (NEGATIVE); UGLUCOSE NEGATIVE (NEGATIVE)
--- NOTE | 2018-12-14 21:17 | NUR ---
Hydralazine not given. Patient NPO daignosis. Dr Michele aware that pt does not have gtube and unable to give gt meds.
[2018-12-14 21:22] LABS: BACTERIA,URINE FEW /HPF (NONE SEEN); RBC,URINE 0-3 /HPF (0-3); SQUAMOUS EPITHELIAL CELL,UR FEW /HPF (NONE SEEN)
[2018-12-14 21:28] LABS: YEAST,URINE MANY /HPF (NONE SEEN)
[2018-12-15] VITALS (8 sets, daily range): BP systolic 141–175; BP diastolic 72–97
--- NOTE | 2018-12-15 00:22 | NUR ---
TPN increase to 30ml/hr. Patient tolerating TPN at this time. Continue to monitor.
[2018-12-15] MEDS: ALBUTEROL SULFATE 2.5 MG/3 ML NEBU IH SCH ×5 (00:41→20:21)
--- NOTE | 2018-12-15 04:22 | NUR ---
TPN increase to 40ml/hr. Patient tolerating TPN at this time. Continue to monitor.
[2018-12-15] MEDS: BLOOD SUGAR DIAGNOSTIC 1 EACH STRIP VI SCH ×4 (05:14→23:51)
[2018-12-15] MEDS: INSULIN REGULAR, HUMAN 300 UNIT/3 ML VIAL SQ PRN ×4 (05:15→23:53)
[2018-12-15] MEDS: hydrALAZINE HCL 50 MG TABLET GT SCH ×3 (05:16→21:03)
--- NOTE | 2018-12-15 06:15 | NUR ---
Patient non-verbal. Has vertical nystagmus, eyes moving up and down. Remains afebrile. NSR on tele 72/min. Trach tube Portex #[address] and secure properly. Patient on mechanical vent with a setting of AC 18, TV 400, PEEP +5 and FiO2 40%. Suction secretions PRN adn able to obtain small amount of thick secretions. Continuous pulse ox on, O2 sat at 100%. Oral care provided. IV site on right AC and left AC intact and patent. IVF infusing on left AC. TPN infusing on right AC currently at 40cc/hr. Abdominal binder in place. Dressing on abdominal area remains dry and clean. Nunn catheter intact and draining via gravity, yellow urine output with some sediments noted. Isolation precaution maintained. Turn and reposition for comfort. Continue to monitor.
[2018-12-15 07:28] LABS: BASOPHILS % (AUTO) 0.3 % (0.0-2.0); EOSINOPHILS # (AUTO) 1.1 K/uL (0.0-0.7); EOSINOPHILS % (AUTO) 8.2 % (0.0-7.0); HEMATOCRIT 23.3 % (36.7-47.1); HEMOGLOBIN 7.6 g/dL (12.5-16.3); LYMPHOCYTES # (AUTO) 1.4 K/uL (20.0-40.0); LYMPHOCYTES % (AUTO) 10.4 % (20.5-51.5); MEAN CORPUSCULAR HEMOGLOBIN 27.6 uug (23.8-33.4); MEAN CORPUSCULAR HGB CONC 33 g/dL (32.5-36.3); MEAN CORPUSCULAR VOLUME 84.2 fL (73.0-96.2); MONOCYTES # (AUTO) 0.7 K/uL (2.0-10.0); MONOCYTES % (AUTO) 5.2 % (0.0-11.0); NEUTROPHILS # (AUTO) 9.9 K/uL (1.8-8.9); NEUTROPHILS % (AUTO) 75.9 % (38.5-71.5); PLATELET COUNT (AUTO) 454 K/uL (152-348); RED BLOOD CELL COUNT(AUTO) 2.77 MIL/uL (4.06-5.63); WHITE BLOOD COUNT (AUTO) 13.1 K/uL (3.6-10.2)
[2018-12-15 07:37] LABS: CREATININE 2.1 mg/dL (0.6-1.3); POTASSIUM 3.5 mmol/L (3.5-5.1)
[2018-12-15 07:49] LABS: ABG BASE EXCESS 0.6 mmol/L; ABG HCO3 24.6 mmol/L; ABG PCO2 36.4 mmHg (35.0-45.0); ABG PH 7.447 (7.350-7.450); ABG PO2 170.9 mmHg (75.0-100.0); ABG SITE LEFT RADIAL; ABG TOTAL HEMOGLOBIN 7.6 G/dL (13.5-18.0); MetHb 0.5 % (0.0-1.5); VENT MODE VENT - A/C; VT, ABG 400 mL
--- NOTE | 2018-12-15 08:00 | NUR ---
PT RECIEVED AND HAS VERTICAL NYSTAGMUS WITH MOVEMENT UP AND DOWN. PT AFEBRILE AND TRACH WITH PORTEX #8 TO VENT WITH A/C -18, TV-450, FIO2-30%, AND PEEP OF 5. TPN INCREASED TO50CC/HR MOUTHCARE GIVEN AND SUCTIONED FOR SM AMOUNTS WHITISH MUCOUS.
[2018-12-15] MEDS: SENNOSIDES 1 TABLET GT SCH ×3 (09:00→16:29)
[2018-12-15] MEDS: CHLORTHALIDONE 25 MG TABLET GT SCH ×2 (09:00→09:42)
[2018-12-15] MEDS: AMLODIPINE 5 MG TABLET GT SCH (09:42)
[2018-12-15] MEDS: FUROSEMIDE 40 MG/4 ML VIAL IV SCH (09:42)
[2018-12-15] MEDS: PANTOPRAZOLE SODIUM 40 MG VIAL IV SCH (09:43)
[2018-12-15] MEDS: CHLORHEXIDINE GLUCONATE 15 ML MOUTHWASH MM SCH ×2 (09:43→17:24)
[2018-12-15] MEDS: EPOETIN ALFA 10,000 UNITS/ML VIAL SQ SCH (09:50)
[2018-12-15 09:51] LABS: EOSINOPHILS % (MANUAL) 9 % (0-8); LYMPHOCYTES % (MANUAL) 10 % (20-40); MONOCYTES % (MANUAL) 4 % (2-10); NEUTROPHILS % (MANUAL) 77 % (42-75)
--- NOTE | 2018-12-15 10:00 | NUR ---
PT WOUND CARE GIVEN ORDERED WITH DANKINS SOLUTION TO ABDOMINAL WOUNDS.BOTH SITES WITH SER0-SANGUINOUS DRAINGE AND WOUNDS CLEANSED AND REPACKED. THE LEFT OUTER ABDOMINAL WOUND WITH MORE PINKISH RED LIQUID DRAINAGE .RIGHT WOUND LESS DRNG. KERLIX MOISTENED WITH DANKINS USED TO REPACK BOTH SITES AND ABD'S TO COVER
[2018-12-15] MEDS: MEROPENEM 1 G in IV NORMAL SALINE 100 ML IV SCH ×2 (11:05→22:37)
[2018-12-15] MEDS: Z GUARD REMEDY PASTE 57 GM TUBE TOP SCH ×2 (11:10→20:32)
[2018-12-15] MEDS: SODIUM HYPOCHLORITE 0.125% 473 ML BOTTLE TP SCH (11:10)
--- NOTE | 2018-12-15 12:12 | NUR ---
PHARMACY NOTES (VANCOMYCIN DOSING) S: 43 yo male with diagnosis of sepsis possibly due to malpositioned g-tube with suspected abscess. MD ordered Zosyn and Vancomycin O: BUN/SCR 46/2.1, WBC 13.1 , TEMP 97.2, wt 71 kg ht 167 cm Random level 12/12 at 0600:26 vancomycin random 12/13 at 0600:14.4 vancomycin random 12/14 at 0440: 17.8 vancomycin random 12/15 at 0600: 20.2 A/P: Due to reduced renal function, will continue to dose per level at this time. Per today's random, Vancomycin 1 gram x1 will be given today(scheduled to give at 1999). Next random pending for tomorrow am at 1800. Will check when available and re-dose as needed. Will follow
--- NOTE | 2018-12-15 12:25 | NUR ---
[facility] PHARMACY NOTES (TPN per pharmacy) Subjective: 43 y/o male presented with fever and significant anemia, possible sepsis. pt was found to have malposition G-tube with abdominal abscess. PT had surgery for GT removal, incision of abdominal wall abscess and necrotic tissue. per wound care note, he has left buttock stage 2 PI. Since MD & surgeon anticipated more days without tube feeding, they decided to place pt on TPN until G-tube insertion possible. Data Collection Associate recommendation: Rec TPN goal: D10%, AA 4.25% @ 70ml/hr + IL 20% 250ml daily. At goal would provide 1357 kcal and 71gm protein Objective: Na 147, K 3.5, CL 111, CO2 28, BUN/SCR 46/2.1, CA 8.2 (corrected ca =9.8), MAG 3.0, PHOS 3.0, ALBUMIN 2.0 (12/14), GLUCOSE 173, TG 264 Assessment/Plan: 1) Will start TPN bag #2 as D10% + AA 4.25% at a goal rate of 70 ml/hr will add 35 meq of Na acetate, K acetate 20 meq, 6 mmol of Kphos + MVI 10ml and trace elements 1 ml. 2) will dc IVF. 3) will start today at 1400, intralipids 20% 250ml over 24 hrs . Plan to check TG tomorrow again 4)pt currently on accuck q6hr with regular insulin sliding scale 5) will order labs for am will continue to monitor and adjust the electrolytes and TPN as the need arise.
[2018-12-15] MEDS ORDERED: IV FAT EMULSIONS 20% 250 ML IV ONE (14:00)
--- NOTE | 2018-12-15 14:45 | NUR ---
PT TRANSFERRED TO CT-SCAN FOR FOLLOW UP ABSCESS. PT THEN TRANSFERRED TO ICU AND REPORT GIVEN TO ONEIL.
[2018-12-15 15:10] LABS: BILIRUBIN,DIRECT 0.5 mg/dL (0.0-0.2); BILIRUBIN,TOTAL 0.8 mg/dL (0.2-1.0)
[2018-12-15] MEDS: SOD FERRIC GLUC COMPLX/SUCROSE 125 MG in IV NORMAL SALINE 100 ML IV SCH (15:58)
[2018-12-15] MEDS: hydrALAZINE HCL 20 MG/1 ML VIAL IV PRN (16:22)
[2018-12-15] MEDS: FLUCONAZOLE 200 MG/NS 100ML IV 100 MG in PREMIXED 1 EACH IV SCH (17:24)
[2018-12-15] MEDS ORDERED: SODIUM ACETATE IV PRN ×7 (18:00)
[2018-12-15] MEDS ORDERED: [UNRECOGNIZED DRUG - OTHER] IV PRN ×7 (18:00)
[2018-12-15] MEDS ORDERED: POTASSIUM ACETATE IV PRN ×7 (18:00)
[2018-12-15] MEDS ORDERED: POTASSIUM PHOSPHATE MM IV PRN ×7 (18:00)
--- NOTE | 2018-12-15 18:46 | NUR ---
accidentally undid am in line treatment instead of the 1130.
[2018-12-15] MEDS ORDERED: VANCOMYCIN IV 1,000 MG in IV DEXTROSE 5% 250 ML IV ONE (20:00)
[2018-12-15] MEDS: HEPARIN SODIUM,PORCINE 5,000 UNITS/ML VIAL SQ SCH (21:02)
--- NOTE | 2018-12-15 22:52 | NUR ---
PT ON CONT VLEA VENT WITH PORTEX# [address] WITH SAME CURRENT VENT SETTINGS, A/C 18, VT 4OOML, 30% , PEEP 5, PT DOES ASSIST AT TIMES, GOOD COUGH EFFORT, SUCTIONED LIGHT PALE YELL TINGE SECRETIONS, WITH SLIGHT PINKISH ALONDRA, NO VENT CHANGES MADE, NEB INLINE X 2 WITH ALBUTEROL, TOLL WELL, PT STABLE, AMBU BAG AT BEDSIDE.Luisa GUERRAP Addendum: 12/15/18 at 3648 by BUBBA MARTÍNEZ RT Amended: Links added.
[2018-12-16 00:01] VITALS: BP 155/85
[2018-12-16] MEDS: ALBUTEROL SULFATE 2.5 MG/3 ML NEBU IH SCH ×4 (00:49→19:40)
--- NOTE | 2018-12-16 01:00 | NUR ---
ABD dsg changed; no bleeding noted; abdominal binder in use.
[2018-12-16 04:00] VITALS: BP 157/92
[2018-12-16] MEDS: ACETAMINOPHEN 650 MG SUPP.RECT RC PRN (04:50)
[2018-12-16] MEDS: hydrALAZINE HCL 50 MG TABLET GT SCH ×3 (04:52→22:00)
[2018-12-16 04:57] LABS: BASOPHILS # (AUTO) 0.1 K/uL (0.0-8.0); BASOPHILS % (AUTO) 0.5 % (0.0-2.0); EOSINOPHILS # (AUTO) 1.1 K/uL (0.0-0.7); EOSINOPHILS % (AUTO) 8.1 % (0.0-7.0); HEMATOCRIT 24.3 % (36.7-47.1); HEMOGLOBIN 8.2 g/dL (12.5-16.3); LYMPHOCYTES # (AUTO) 1.3 K/uL (20.0-40.0); LYMPHOCYTES % (AUTO) 9.7 % (20.5-51.5); MEAN CORPUSCULAR HEMOGLOBIN 27.6 uug (23.8-33.4); MEAN CORPUSCULAR HGB CONC 34 g/dL (32.5-36.3); MONOCYTES # (AUTO) 0.5 K/uL (2.0-10.0); MONOCYTES % (AUTO) 4.1 % (0.0-11.0); NEUTROPHILS # (AUTO) 10.2 K/uL (1.8-8.9); NEUTROPHILS % (AUTO) 77.6 % (38.5-71.5); PLATELET COUNT (AUTO) 558 K/uL (152-348); RED BLOOD CELL COUNT(AUTO) 2.96 MIL/uL (4.06-5.63); WHITE BLOOD COUNT (AUTO) 13.2 K/uL (3.6-10.2)
[2018-12-16 05:08] LABS: CREATININE 1.9 mg/dL (0.6-1.3); MAGNESIUM 2.4 mg/dL (1.8-2.4); PHOSPHOROUS 2.5 mg/dL (2.5-4.9); POTASSIUM 3.5 mmol/L (3.5-5.1)
[2018-12-16] MEDS: INSULIN REGULAR, HUMAN 300 UNIT/3 ML VIAL SQ PRN ×2 (05:30→17:56)
[2018-12-16] MEDS: BLOOD SUGAR DIAGNOSTIC 1 EACH STRIP VI SCH ×4 (05:30→23:44)
[2018-12-16 08:00] VITALS: BP 161/89
[2018-12-16] MEDS ORDERED: DEXTROSE 50% 50 ML DISP.SYRIN IV PRN (08:00)
--- NOTE | 2018-12-16 08:00 | NUR ---
Pulmonary services Dr. Shipley in the unit to examine patient. Report given see orders hx.
[2018-12-16] MEDS ORDERED: POTASSIUM PHOSPHATE MM IV PRN ×12 (08:01→23:31)
[2018-12-16] MEDS ORDERED: [UNRECOGNIZED DRUG - OTHER] IV PRN ×5 (08:01)
[2018-12-16] MEDS ORDERED: SODIUM ACETATE IV PRN ×12 (08:01→23:31)
[2018-12-16] MEDS ORDERED: POTASSIUM ACETATE IV PRN ×12 (08:01→23:31)
[2018-12-16] MEDS: AMLODIPINE 5 MG TABLET GT SCH ×2 (08:13→08:28)
[2018-12-16] MEDS: CHLORTHALIDONE 25 MG TABLET GT SCH ×2 (08:13→09:00)
[2018-12-16] MEDS: SENNOSIDES 1 TABLET GT SCH ×3 (08:13→17:00)
[2018-12-16] MEDS: PANTOPRAZOLE SODIUM 40 MG VIAL IV SCH (08:13)
[2018-12-16] MEDS: CHLORHEXIDINE GLUCONATE 15 ML MOUTHWASH MM SCH ×2 (08:13→17:04)
[2018-12-16] MEDS: HEPARIN SODIUM,PORCINE 5,000 UNITS/ML VIAL SQ SCH ×2 (08:17→22:09)
[2018-12-16] MEDS: Z GUARD REMEDY PASTE 57 GM TUBE TOP SCH ×2 (08:17→20:43)
[2018-12-16] MEDS: SODIUM HYPOCHLORITE 0.125% 473 ML BOTTLE TP SCH (08:18)
[2018-12-16] MEDS: hydrALAZINE HCL 20 MG/1 ML VIAL IV PRN ×2 (08:55→18:46)
--- NOTE | 2018-12-16 09:44 | NUR ---
PHARMACY NOTES (VANCOMYCIN DOSING) S: To continue vanco dosing for this 43 yo male with diagnosis of sepsis possibly due to malpositioned g-tube with suspected abscess. O: BUN/SCR 44/1.9, WBC 13.2 , TEMP 100.4 wt 71 kg ht 167 cm Random level 12/12 at 0600:26 vancomycin random 12/13 at 0600:14.4 vancomycin random 12/14 at 0440: 17.8 vancomycin random 12/15 at 0600: 20.2 Vanco random 12/16 at 1800: pending A/P: Due to reduced renal function, will continue to dose per level at this time. Patient received vanco 1gm on 12/15 at 2000. Next random pending for today at 1800. Will check when available and re-dose as needed. Will follow Addendum: 12/16/18 at 1910 by BUBBA LEZAMA ADM RANDOM VANCOMYCIN LEVEL 12/16 AT 1800 18.4. ORDERED VANCOMYCIN 1GM IVPB X 1 FOR THIS EVENING. REPEAT RANDOM LEVEL TOMORROW EVENING
--- NOTE | 2018-12-16 10:59 | NUR ---
Nephrology services, Dr. Lacy in the unit to see pt. report given.
[2018-12-16] MEDS: MEROPENEM 1 G in IV NORMAL SALINE 100 ML IV SCH ×2 (11:02→23:00)
[2018-12-16 12:00] VITALS: BP 135/73
--- NOTE | 2018-12-16 12:41 | NUR ---
[facility] PHARMACY NOTES (TPN per pharmacy) Subjective: 43 y/o male presented with fever and significant anemia, possible sepsis. pt was found to have malposition G-tube with abdominal abscess. PT had surgery for GT removal, incision of abdominal wall abscess and necrotic tissue. per wound care note, he has left buttock stage 2 PI. Since MD & surgeon anticipated more days without tube feeding, they decided to place pt on TPN until G-tube insertion possible. Slitter Cut Off Operator recommendation: Rec TPN goal: D10%, AA 4.25% @ 70ml/hr + IL 20% 250ml daily. At goal would provide 1357 kcal and 71gm protein Objective: Na 143, K 3.5, CL 108, CO2 30, BUN/SCR 44/1.9, CA 8.1 (corrected ca =9.7), MAG 2.4, PHOS 2.5, ALBUMIN 2.0 (12/14), GLUCOSE 151, TG 286 Assessment/Plan: 1) TPN bag #3 as D10% + AA 4.25% at a goal rate of 70 ml/hr,will add 30 meq of Na acetate, K acetate 10 meq, 9 mmol of Kphos & TPN bag #4 as D10% + AA 4.25% at a goal rate of 70 ml/hr will add 30 meq of Na acetate, K acetate 10 meq, 9 mmol of Kphos + MVI 10ml and trace elements 1 ml. 3) will continue intralipids 20% 250ml over 24 hrs (re-order intralipids daily). Will monitor TG level periodically 4)pt currently on accuck q6hr with regular insulin sliding scale 5) will order labs for am will continue to monitor and adjust the electrolytes and TPN as the need arise.
[2018-12-16] MEDS ORDERED: IV FAT EMULSIONS 20% 250 ML IV ONE (14:00)
[2018-12-16] MEDS: FLUCONAZOLE 200 MG/NS 100ML IV 100 MG in PREMIXED 1 EACH IV SCH (14:23)
[2018-12-16] MEDS: SOD FERRIC GLUC COMPLX/SUCROSE 125 MG in IV NORMAL SALINE 100 ML IV SCH (14:37)
[2018-12-16 16:00] VITALS: BP 157/92
--- NOTE | 2018-12-16 18:26 | NUR ---
Neurology services in the unit to see and examine patient, report given, as stated "I'll order MRI for tomorrow morning."
[2018-12-16 20:00] VITALS: BP 152/88
[2018-12-16] MEDS ORDERED: VANCOMYCIN IV 1,000 MG in IV DEXTROSE 5% 250 ML IV ONE (20:00)
--- NOTE | 2018-12-16 20:00 | NUR ---
RECEIVED PT. OPENS HIS EYES TO VERBAL STIMULI. TRACH TO VENT W/ SETTINGS OF AC-18, TV-400, FIO2-30%, PEEP-+5, W/ O2 SAT OF 99%. SUCTIONED VIA TRACH W/ MINIMAL AMT OF THICK WHITISH MUCOUS. TPN @ 70CC/HR & INTRALIPID @ 10CC.HR VIA PICC LINE ON CEFERINO. REPOSITIONED ON HIS SIDE W/ HOB ELEVATED.
[2018-12-16] MEDS: MORPHINE SULFATE 2 MG/1 ML DISP.SYRIN IV PRN (20:09)
--- NOTE | 2018-12-16 20:10 | NUR ---
MEDICATED W/ MORPHINE SULFATE 1MG IVP ORDERED. SEBASTIAN HRADEN EXECUTIVE DIRECTOR CONTRACT SHOP CHECKED THE ABD. WOUND & CHANGED THE DRSG ORDERED , ABD BINDER APPLIED.
[2018-12-16] MEDS ORDERED: IV NORMAL SALINE 250 ML IV PRN (20:45)
[2018-12-16] MEDS ORDERED: hydrALAZINE HCL 20 MG/1 ML VIAL IV ONE (22:45)
--- NOTE | 2018-12-16 22:45 | NUR ---
CALLED Lizbet ESTEBAN SILK TRIMMER RE: ELEVATED BP 180/94 W/ ORDER OF APRESOLINE 10MG IVP X1 SINCE PRN APRESOLINE 20MG IS NOT DUE.
[2018-12-16] MEDS ORDERED: [UNRECOGNIZED DRUG - OTHER] IV PRN ×7 (23:31)
[2018-12-17] VITALS: BP 161/89
[2018-12-17] MEDS: INSULIN REGULAR, HUMAN 300 UNIT/3 ML VIAL SQ PRN ×4 (00:22→18:15)
[2018-12-17] MEDS: Z GUARD REMEDY PASTE 57 GM TUBE TOP PRN (00:41)
[2018-12-17] MEDS: ALBUTEROL SULFATE 2.5 MG/3 ML NEBU IH SCH ×4 (01:50→19:15)
[2018-12-17 04:00] VITALS: BP 152/56
--- NOTE | 2018-12-17 04:00 | NUR ---
AM CARE DONE. TRACH CARE DONE. ORAL CARE DONE. REPOSITIONED ON HIS SIDE W/ HOB ELEVATED. TEMP-99.3, TYLENOL 650MG SUPP GIVEN.
[2018-12-17 05:01] LABS: BASOPHILS # (AUTO) 0.1 K/uL (0.0-8.0); BASOPHILS % (AUTO) 0.5 % (0.0-2.0); EOSINOPHILS # (AUTO) 0.8 K/uL (0.0-0.7); HEMATOCRIT 25.2 % (36.7-47.1); HEMOGLOBIN 8.5 g/dL (12.5-16.3); LYMPHOCYTES # (AUTO) 1.8 K/uL (20.0-40.0); LYMPHOCYTES % (AUTO) 11.1 % (20.5-51.5); MEAN CORPUSCULAR HGB CONC 34 g/dL (32.5-36.3); MEAN CORPUSCULAR VOLUME 83.1 fL (73.0-96.2); MONOCYTES # (AUTO) 0.5 K/uL (2.0-10.0); MONOCYTES % (AUTO) 3.2 % (0.0-11.0); NEUTROPHILS # (AUTO) 12.7 K/uL (1.8-8.9); NEUTROPHILS % (AUTO) 80.2 % (38.5-71.5); PLATELET COUNT (AUTO) 605 K/uL (152-348); RED BLOOD CELL COUNT(AUTO) 3.03 MIL/uL (4.06-5.63); WHITE BLOOD COUNT (AUTO) 15.9 K/uL (3.6-10.2)
[2018-12-17] MEDS: hydrALAZINE HCL 50 MG TABLET GT SCH ×3 (05:12→21:09)
[2018-12-17 05:41] LABS: CREATININE 1.6 mg/dL (0.6-1.3); MAGNESIUM 2.1 mg/dL (1.8-2.4); PHOSPHOROUS 2.3 mg/dL (2.5-4.9); POTASSIUM 3.6 mmol/L (3.5-5.1)
[2018-12-17] MEDS: BLOOD SUGAR DIAGNOSTIC 1 EACH STRIP VI SCH ×3 (05:43→18:14)
--- NOTE | 2018-12-17 06:11 | NUR ---
TEMP-99.0. REPOSITIONED W/ HOB ELEVATED.
--- NOTE | 2018-12-17 07:16 | NUR ---
PT RECEIVED TRACH TO VENT ON CMV, PORTEX #8 TRACH IS PATENT AND SECURE. PT IS ON A GALINDO VENT ON SETTINGS OF A/C 18, VT 400, PEEP +5, AND 30% FIO2. VENT PARAMETERS AND ALARMS CHECKED, ALARMS ARE AUDIBLE. IN-LINE TX TOLERATED WELL, NO ADVERSE REACTION NOTED. PT IS TOLERATING VENT WELL, NO SOB NOTED. BVM AND BACK-UP TRACH AT BEDSIDE. VENT PLUGGED INTO RED OUTLET. SUCTION PRN. WILL CONTINUE TO MONITOR.
[2018-12-17 08:00] VITALS: BP 154/92
[2018-12-17] MEDS: SENNOSIDES 1 TABLET GT SCH ×2 (08:13→16:29)
[2018-12-17] MEDS: AMLODIPINE 5 MG TABLET GT SCH (08:13)
[2018-12-17] MEDS: CHLORTHALIDONE 25 MG TABLET GT SCH (08:13)
[2018-12-17] MEDS: HEPARIN SODIUM,PORCINE 5,000 UNITS/ML VIAL SQ SCH ×2 (08:15→20:53)
[2018-12-17] MEDS: PANTOPRAZOLE SODIUM 40 MG VIAL IV SCH (08:15)
[2018-12-17] MEDS: CHLORHEXIDINE GLUCONATE 15 ML MOUTHWASH MM SCH ×2 (08:16→16:31)
[2018-12-17] MEDS: SODIUM HYPOCHLORITE 0.125% 473 ML BOTTLE TP SCH (08:17)
[2018-12-17] MEDS: Z GUARD REMEDY PASTE 57 GM TUBE TOP SCH ×2 (08:17→20:33)
--- NOTE | 2018-12-17 09:41 | NUR ---
Pt left the unit for CT head w/o contrast with RT and radiologist. VSS wnl. Pt stable and nad noted upon leaving the unit.
--- NOTE | 2018-12-17 09:52 | NUR ---
Dr. Arias here to see pt. Full report given. No new orders received. No plan for PEG placement at this time.
--- NOTE | 2018-12-17 09:58 | NUR ---
Pt returned from CT head with RT and radiologist. VSS wnl. Pt stable and nad noted upon returning to the floor.
--- NOTE | 2018-12-17 10:10 | NUR ---
Dr. Brar here to see pt. Full report given. New orders received. stated to discontinue MRI brain.
[2018-12-17] MEDS: MEROPENEM 1 G in IV NORMAL SALINE 100 ML IV SCH (10:49)
[2018-12-17 12:00] VITALS: BP 158/87
--- NOTE | 2018-12-17 12:18 | NUR ---
CARLOS Mustafa here to see pt. Full report given. No new orders received.
[2018-12-17] MEDS ORDERED: IV FAT EMULSIONS 20% 250 ML IV ONE ×2 (13:00→14:00)
[2018-12-17] MEDS: FLUCONAZOLE 200 MG/NS 100ML IV 100 MG in PREMIXED 1 EACH IV SCH (14:02)
[2018-12-17] MEDS ORDERED: SODIUM ACETATE IV PRN ×6 (14:30)
[2018-12-17] MEDS ORDERED: [UNRECOGNIZED DRUG - OTHER] IV PRN ×6 (14:30)
[2018-12-17] MEDS ORDERED: POTASSIUM PHOSPHATE MM IV PRN ×6 (14:30)
[2018-12-17] MEDS ORDERED: POTASSIUM ACETATE IV PRN ×6 (14:30)
--- NOTE | 2018-12-17 15:08 | NUR ---
[facility] PHARMACY NOTES (TPN per pharmacy) Subjective: 43 y/o male presented with fever and significant anemia, possible sepsis. pt was found to have malposition G-tube with abdominal abscess. PT had surgery for GT removal, incision of abdominal wall abscess and necrotic tissue. per wound care note, he has left buttock stage 2 PI. Since MD & surgeon anticipated more days without tube feeding, they decided to place pt on TPN until G-tube insertion possible. Catalog Library Assistant recommendation: Rec TPN goal: D10%, AA 4.25% @ 70ml/hr + IL 20% 250ml daily. At goal would provide 1357 kcal and 71gm protein Objective: Na 145, K 3.6, CL 109, CO2 28, BUN/SCR 39/1.6, CA 8.3 (corrected ca =9.9), MAG 2.1, PHOS 2.3, ALBUMIN 2.0 (12/14), GLUCOSE 171, TG 286 (12/16) Assessment/Plan: 1) TPN bag #5 as D10% + AA 4.25% at a goal rate of 70 ml/hr,will add 30 meq of Na acetate, K acetate 10 meq, 15 mmol of Kphos, 1gm Mg sulfate & TPN bag #6 as D10% + AA 4.25% at a goal rate of 70 ml/hr will add 30 meq of Na acetate, K acetate 10 meq, 15 mmol of Kphos + MVI 10ml and trace elements 1 ml. 3) will continue intralipids 20% 250ml over 24 hrs (re-order intralipids daily). Will monitor TG level periodically 4)pt currently on accuck q6hr with regular insulin sliding scale 5) will order labs for am will continue to monitor and adjust the electrolytes and TPN as the need arise. Pt now started on Bactrim IV as well, will follow K levels and adjust TPN as accordingly
[2018-12-17] MEDS: SOD FERRIC GLUC COMPLX/SUCROSE 125 MG in IV NORMAL SALINE 100 ML IV SCH (15:22)
[2018-12-17 16:00] VITALS: BP 169/98
[2018-12-17] MEDS: hydrALAZINE HCL 20 MG/1 ML VIAL IV PRN (16:29)
[2018-12-17] MEDS: SULFAMETHOXAZOL/TRIMETHOPRI IV 20 ML in IV DEXTROSE 5% 500 ML IV SCH ×2 (16:50→21:09)
--- NOTE | 2018-12-17 17:04 | NUR ---
At 1630, IV apresoline given for SBP > 160. Current BP now 156/86. Medication proven effective. Will continue to monitor blood pressure.
[2018-12-17 20:00] VITALS: BP 151/84
[2018-12-18] VITALS (15 sets, daily range): BP systolic 131–169; BP diastolic 69–100
[2018-12-18] MEDS: INSULIN REGULAR, HUMAN 300 UNIT/3 ML VIAL SQ PRN ×2 (00:08→06:03)
[2018-12-18] MEDS: BLOOD SUGAR DIAGNOSTIC 1 EACH STRIP VI SCH ×5 (00:09→23:27)
[2018-12-18] MEDS: ALBUTEROL SULFATE 2.5 MG/3 ML NEBU IH SCH ×4 (00:31→19:27)
[2018-12-18] MEDS ORDERED: POTASSIUM PHOSPHATE MM IV PRN ×7 (04:00)
[2018-12-18] MEDS ORDERED: POTASSIUM ACETATE IV PRN ×7 (04:00)
[2018-12-18] MEDS ORDERED: [UNRECOGNIZED DRUG - OTHER] IV PRN ×7 (04:00)
[2018-12-18] MEDS ORDERED: SODIUM ACETATE IV PRN ×10 (04:00→19:00)
[2018-12-18] MEDS: hydrALAZINE HCL 50 MG TABLET GT SCH ×3 (04:52→21:08)
[2018-12-18 05:16] LABS: BASOPHILS # (AUTO) 0.1 K/uL (0.0-8.0); BASOPHILS % (AUTO) 0.5 % (0.0-2.0); EOSINOPHILS # (AUTO) 0.7 K/uL (0.0-0.7); EOSINOPHILS % (AUTO) 4.7 % (0.0-7.0); HEMATOCRIT 23.9 % (36.7-47.1); HEMOGLOBIN 8.1 g/dL (12.5-16.3); LYMPHOCYTES # (AUTO) 1.7 K/uL (20.0-40.0); LYMPHOCYTES % (AUTO) 10.8 % (20.5-51.5); MEAN CORPUSCULAR HEMOGLOBIN 28.1 uug (23.8-33.4); MEAN CORPUSCULAR HGB CONC 34 g/dL (32.5-36.3); MEAN CORPUSCULAR VOLUME 83.1 fL (73.0-96.2); MONOCYTES # (AUTO) 0.5 K/uL (2.0-10.0); MONOCYTES % (AUTO) 3.5 % (0.0-11.0); NEUTROPHILS # (AUTO) 12.4 K/uL (1.8-8.9); NEUTROPHILS % (AUTO) 80.5 % (38.5-71.5); PLATELET COUNT (AUTO) 570 K/uL (152-348); RED BLOOD CELL COUNT(AUTO) 2.88 MIL/uL (4.06-5.63); WHITE BLOOD COUNT (AUTO) 15.4 K/uL (3.6-10.2)
[2018-12-18] MEDS: SULFAMETHOXAZOL/TRIMETHOPRI IV 20 ML in IV DEXTROSE 5% 500 ML IV SCH ×3 (05:28→21:13)
[2018-12-18 05:38] LABS: POTASSIUM 4.4 mmol/L (3.5-5.1)
[2018-12-18 05:39] LABS: CREATININE 1.7 mg/dL (0.6-1.3); MAGNESIUM 2.3 mg/dL (1.8-2.4); PHOSPHOROUS 3.3 mg/dL (2.5-4.9)
--- NOTE | 2018-12-18 07:30 | NUR ---
report received from Yang CASAS. 43 yr old male was admitted on 12/10/17 for ARF, UTI, Anemia. patient is quadriplegic, trach to vent, ac 40%, ac 18, unfw7wr tv 400. is NPO. TPN infusing via CEFERINO PICC line at 70ml/hr and Intralipids at 10ml/hr. has galindo catheter.intact. ekg is sinus rhythm. on contact isolation for MRSA abdominal wounds. s/p incision and drainage of abdominal abscess 12/14. no bleeding noted. Addendum: 12/18/18 at 1010 by ONEIL MARIE RN Amended: Links added.
--- NOTE | 2018-12-18 08:00 | NUR ---
seen by gabriela Duran orders. Addendum: 12/18/18 at 1736 by ONEIL MARIE RN Amended: Isabella added. Addendum: 12/18/18 at 1738 by ONEIL MARIE RN Amended: Links added. Addendum: 12/18/18 at 1740 by ONEIL MARIE RN Amended: Links added. Addendum: 12/18/18 at 1744 by ONEIL MARIE RN Amended: Links added. Addendum: 12/18/18 at 1747 by ONEIL MARIE RN Amended: Links added. Addendum: 12/18/18 at 1750 by ONEIL MARIE RN Amended: Links added.
[2018-12-18] MEDS: PANTOPRAZOLE SODIUM 40 MG VIAL IV SCH (08:46)
[2018-12-18] MEDS: HEPARIN SODIUM,PORCINE 5,000 UNITS/ML VIAL SQ SCH ×2 (08:46→21:56)
[2018-12-18] MEDS: CHLORHEXIDINE GLUCONATE 15 ML MOUTHWASH MM SCH ×2 (08:46→17:11)
[2018-12-18] MEDS: Z GUARD REMEDY PASTE 57 GM TUBE TOP SCH ×2 (08:47→20:11)
[2018-12-18] MEDS: SENNOSIDES 1 TABLET GT SCH ×2 (09:00→17:00)
[2018-12-18] MEDS: AMLODIPINE 5 MG TABLET GT SCH (09:00)
--- NOTE | 2018-12-18 11:30 | NUR ---
seen by Dr Saravia with no new orders Addendum: 12/18/18 at 1738 by ONEIL MARIE RN Amended: Isabella added. Addendum: 12/18/18 at 1740 by ONEIL MARIE RN Amended: Links added. Addendum: 12/18/18 at 1744 by ONEIL MARIE RN Amended: Links added. Addendum: 12/18/18 at 1747 by ONEIL MARIE RN Amended: Links added. Addendum: 12/18/18 at 1750 by ONEIL MARIE RN Amended: Links added.
--- NOTE | 2018-12-18 11:39 | NUR ---
accucheck 116, no insulin coverage Addendum: 12/18/18 at 1747 by ONEIL MARIE RN Amended: Isabella added. Addendum: 12/18/18 at 1750 by ONEIL MARIE RN Amended: Isabella hutson.
--- NOTE | 2018-12-18 12:30 | NUR ---
Annabelle Fermin, patient's was contacted re: plan for I/d and debridement of abdominal wall. gave permission by phone for planned surgery. consent form signed and witnessed by 2 RNs Addendum: 12/18/18 at 1758 by ONEIL MARIE RN Amended: Links added.
[2018-12-18] MEDS: FLUCONAZOLE 200 MG/NS 100ML IV 100 MG in PREMIXED 1 EACH IV SCH (13:48)
[2018-12-18] MEDS: CHLORTHALIDONE 25 MG TABLET GT SCH (13:50)
[2018-12-18] MEDS: SODIUM HYPOCHLORITE 0.125% 473 ML BOTTLE TP SCH (13:51)
[2018-12-18] MEDS: hydrALAZINE HCL 20 MG/1 ML VIAL IV PRN ×2 (14:14→21:09)
--- NOTE | 2018-12-18 14:14 | NUR ---
medicated with IV apresoline for bp 164/100. Addendum: 12/18/18 at 1750 by ONEIL MARIE RN Amended: Links added.
[2018-12-18] MEDS: SOD FERRIC GLUC COMPLX/SUCROSE 125 MG in IV NORMAL SALINE 100 ML IV SCH (14:34)
--- NOTE | 2018-12-18 15:00 | NUR ---
seen by Dr Maykel MD made aware of no access to po/gt/ngt meds that are being held. orders received. Addendum: 12/18/18 at 174 by ONEIL MARIE RN Amended: Links added. Addendum: 12/18/18 at 1743 by ONEIL MARIE RN Amended: Links added. Addendum: 12/18/18 at 174 by ONEIL MARIE RN Amended: Links added. Addendum: 12/18/18 at 1750 by ONEIL MARIE RN Amended: Links added.
--- NOTE | 2018-12-18 15:00 | NUR ---
[facility] PHARMACY NOTES (TPN per pharmacy) Subjective: 43 y/o male presented with fever and significant anemia, possible sepsis. pt was found to have malposition G-tube with abdominal abscess. PT had surgery for GT removal, incision of abdominal wall abscess and necrotic tissue. per wound care note, he has left buttock stage 2 PI. Since MD & surgeon anticipated more days without tube feeding, they decided to place pt on TPN until G-tube insertion possible.Per MD note, consider G tube once WBC trends down and cleared by ID. Track Repairer recommendation: Rec TPN goal: D10%, AA 4.25% @ 70ml/hr + IL 20% 250ml daily. At goal would provide 1357 kcal and 71gm protein Objective: Na 140, K 4.4, CL 106, CO2 25, BUN/SCR 38/1.7, CA 8.4 (corrected ca =9.76), MAG 2.3, PHOS 3.3, ALBUMIN 2.3, GLUCOSE 127, TG 286 (12/16) Assessment/Plan: 1) TPN bag #7 as D10% + AA 4.25% at a goal rate of 70 ml/hr,will add 30 meq of Na acetate, & TPN bag #8 as D10% + AA 4.25% at a goal rate of 70 ml/hr will add 30 meq of Na acetate, 6 mmol of Kphos + MVI 10ml and trace elements 1 ml. 3) will continue intralipids 20% 250ml over 24 hrs (re-order intralipids daily). Will monitor TG level periodically 4)pt currently on accuck q6hr with regular insulin sliding scale 5) will order labs for am will continue to monitor and adjust the electrolytes and TPN as the need arise. Pt is on Bactrim IV as well, will follow K levels and adjust TPN as accordingly
[2018-12-18] MEDS ORDERED: POLYMYXIN B SULFATE 500,000 UNITS, BACITRACIN 50,000 UNITS, NORMAL SALINE 20 ML MC ONE ×3 (15:30)
--- NOTE | 2018-12-18 15:30 | NUR ---
kalin GONZALEZ for ID here. aware of patient's current status. order received to repeat abd wound c/s while patient in surgery. message relayed to Jacy CASAS OR Addendum: 12/18/18 at 174 by ONEIL MARIE RN Amended: Links added. Addendum: 12/18/18 at 174 by ONEIL MARIE RN Amended: Links added. Addendum: 12/18/18 at 1750 by ONEIL MARIE RN Amended: Links added.
[2018-12-18] MEDS ORDERED: MIDAZOLAM HCL 2 MG/2 ML VIAL ONE (16:51)
[2018-12-18] MEDS ORDERED: ROCURONIUM BROMIDE 50 MG/5 ML VIAL ONE (16:51)
--- NOTE | 2018-12-18 17:04 | NUR ---
to Surgery for repeat I/D and debridement of abdominal wall, accompanied by anesthesiologist, RT ( patient on Ventilator) and OR Ng staff and CCU RN Addendum: 12/18/18 at 1704 by ONEIL MARIE RN Amended: Links added. Addendum: 12/18/18 at 1705 by ONEIL MARIE RN Amended: Links added.
[2018-12-18] MEDS ORDERED: PROPOFOL 200 MG/20 ML BOTTLE IV ONE (18:10)
[2018-12-18] MEDS ORDERED: TPN/PPN PER PHARMACY IV ONE (18:10)
[2018-12-18] MEDS ORDERED: IV NORMAL SALINE 1000 ML BAG IV ONE ×2 (18:10)
[2018-12-18] MEDS ORDERED: SEVOFLURANE 250 ML BOTTLE IH ONE (18:10)
--- NOTE | 2018-12-18 18:33 | NUR ---
accucheck 125, no insulin coverage Addendum: 12/18/18 at 1833 by ONEIL MARIE RN Amended: Links added.
[2018-12-18] MEDS: MORPHINE SULFATE 2 MG/1 ML DISP.SYRIN IV PRN (18:42)
--- NOTE | 2018-12-18 18:53 | NUR ---
assume care from PACU RNs. patient now ICU status, patient hypertensive but apresoline not due yet. medicated with Morphibne 1 mg IV
[2018-12-18] MEDS ORDERED: AMINO ACID IV PRN ×3 (19:00)
[2018-12-18] MEDS ORDERED: IV FAT EMULSIONS 20% 250 ML IV ONE (19:00)
[2018-12-18] MEDS ORDERED: DEXTROSE IV PRN ×3 (19:00)
--- NOTE | 2018-12-18 19:25 | NUR ---
report given to Jarrell RN Addendum: 12/18/18 at 1925 by ONEIL MARIE RN Amended: Links added.
--- NOTE | 2018-12-18 19:45 | NUR ---
rounds made ,patient open eyes,but doesn't follow commands , upper and lower extremities flaccid, only withdraws to pain .TRACH to vent tolerating vent settings rr 18 saturation 98% hob up .respiratory therapist at bedside giving patient breathing treatment . checked abdomen area post op site abdominal dressing CDI ,abdominal binder in placed .kept npo and patient on tpn and lipids for nutrition .kept npo . continue to monitor v/s and levels of pain . contact isolation observed .
--- NOTE | 2018-12-18 20:15 | NUR ---
patient keven came and visited ,updated with patient condition and questions answered .
--- NOTE | 2018-12-18 21:00 | NUR ---
given prn hydralazine for sbp >160 mm/hg and given Tylenol suppository for pain using flacc pain score , patient grimacing and hr high and rr high .
[2018-12-18] MEDS: ACETAMINOPHEN 650 MG SUPP.RECT RC PRN (21:09)
[2018-12-19] VITALS (29 sets, daily range): BP systolic 132–165; BP diastolic 68–98
[2018-12-19] MEDS: INSULIN REGULAR, HUMAN 300 UNIT/3 ML VIAL SQ PRN ×4 (00:32→23:39)
[2018-12-19] MEDS: ALBUTEROL SULFATE 2.5 MG/3 ML NEBU IH SCH ×4 (02:07→20:45)
--- NOTE | 2018-12-19 02:09 | NUR ---
Trached Pt endorsed on Merida Vent with ordered vent settings of AC 18, vt 400, +5, 30%. He is trached with a cuffed Portex 8. WIRE MILL OPERATOR used for cuff inflation. Airway patent and secured at midline. Treatments administered and tolerated well, no adverse reactions noted. Oral care/ Trach care rendered. Will continue to monitor throughout shift.
--- NOTE | 2018-12-19 04:00 | NUR ---
am care done ,bath patient changed soiled linens and gown .z guard applied to bilateral groin and sacral area ,paced Mepilex to sacral area .trach care and oral care done . f/c done . turned and reposition patient .
[2018-12-19] MEDS: hydrALAZINE HCL 20 MG/1 ML VIAL IV PRN ×2 (04:30→17:32)
--- NOTE | 2018-12-19 04:30 | NUR ---
hydralazine prn given c/o bp 163/96 hr 94.prn morphine given also for pain using flacc assessment after dressing changed.
--- NOTE | 2018-12-19 04:40 | NUR ---
abdominal post op dressing done ,serosanguineous drainage noted irrigated abdominal wound with dakins solution and packed with dakins moist Kerlix cover with abd pad secure with paper tape .done aseptically .
[2018-12-19] MEDS: MORPHINE SULFATE 2 MG/1 ML DISP.SYRIN IV PRN ×2 (04:49→10:06)
[2018-12-19] MEDS: hydrALAZINE HCL 50 MG TABLET GT SCH ×3 (05:08→22:00)
[2018-12-19] MEDS: SULFAMETHOXAZOL/TRIMETHOPRI IV 20 ML in IV DEXTROSE 5% 500 ML IV SCH ×3 (05:08→22:01)
[2018-12-19 05:15] LABS: BASOPHILS # (AUTO) 0.1 K/uL (0.0-8.0); BASOPHILS % (AUTO) 0.3 % (0.0-2.0); EOSINOPHILS # (AUTO) 0.5 K/uL (0.0-0.7); EOSINOPHILS % (AUTO) 2.3 % (0.0-7.0); HEMATOCRIT 24.2 % (36.7-47.1); HEMOGLOBIN 8.2 g/dL (12.5-16.3); LYMPHOCYTES # (AUTO) 1.6 K/uL (20.0-40.0); LYMPHOCYTES % (AUTO) 7.8 % (20.5-51.5); MEAN CORPUSCULAR HEMOGLOBIN 28.3 uug (23.8-33.4); MEAN CORPUSCULAR HGB CONC 34 g/dL (32.5-36.3); MEAN CORPUSCULAR VOLUME 83.3 fL (73.0-96.2); MONOCYTES # (AUTO) 0.8 K/uL (2.0-10.0); MONOCYTES % (AUTO) 3.6 % (0.0-11.0); NEUTROPHILS # (AUTO) 17.9 K/uL (1.8-8.9); PLATELET COUNT (AUTO) 609 K/uL (152-348); WHITE BLOOD COUNT (AUTO) 20.8 K/uL (3.6-10.2)
[2018-12-19 05:42] LABS: BILIRUBIN,TOTAL 0.4 mg/dL (0.2-1.0); CREATININE 1.7 mg/dL (0.6-1.3); MAGNESIUM 1.9 mg/dL (1.8-2.4); POTASSIUM 4.2 mmol/L (3.5-5.1); TOTAL PROTEIN, SERUM 6.8 g/dL (6.4-8.2)
[2018-12-19] MEDS: BLOOD SUGAR DIAGNOSTIC 1 EACH STRIP VI SCH ×4 (06:01→23:36)
--- NOTE | 2018-12-19 07:30 | NUR ---
Received report from registered diet technician nurse, patient in bed alert, On ventilator Portex 8, settings a/c 18, TV 400, 30FIo2, Peep 5. Patient has a galindo draining with clear yellow urine, sinus tachycardia 104, no noted swelling on extremities. Patient is on air mattress inflated with bony prominces protected with pillows. Bed in low position, side rails up x2, bedside monitor. Will continue to monitor.
[2018-12-19] MEDS: AMLODIPINE 5 MG TABLET GT SCH (08:06)
[2018-12-19] MEDS: SENNOSIDES 1 TABLET GT SCH ×2 (08:06→17:00)
[2018-12-19] MEDS: CHLORTHALIDONE 25 MG TABLET GT SCH (08:06)
[2018-12-19] MEDS: PANTOPRAZOLE SODIUM 40 MG VIAL IV SCH (08:10)
[2018-12-19] MEDS: CHLORHEXIDINE GLUCONATE 15 ML MOUTHWASH MM SCH ×2 (08:11→17:33)
[2018-12-19] MEDS: Z GUARD REMEDY PASTE 57 GM TUBE TOP SCH ×2 (08:12→20:32)
[2018-12-19] MEDS: SODIUM HYPOCHLORITE 0.125% 473 ML BOTTLE TP SCH (08:12)
[2018-12-19] MEDS: HEPARIN SODIUM,PORCINE 5,000 UNITS/ML VIAL SQ SCH (08:20)
[2018-12-19] MEDS ORDERED: SODIUM CHLORIDE IV PRN ×12 (09:00→23:30)
[2018-12-19] MEDS ORDERED: SODIUM ACETATE IV PRN ×12 (09:00→23:30)
[2018-12-19] MEDS ORDERED: [UNRECOGNIZED DRUG - OTHER] IV PRN ×12 (09:00→23:30)
--- NOTE | 2018-12-19 10:00 | NUR ---
Patient seen by Dr. Shipley.
[2018-12-19] MEDS: MORPHINE SULFATE 4 MG/1 ML DISP.SYRIN IV PRN ×4 (11:16→22:31)
--- NOTE | 2018-12-19 12:00 | NUR ---
Josette CHEMISTRY LABORATORY TECHNICIAN from surgery changed and evaluated surgical wound dressing. Orders received to hold Heparin until further notice.
--- NOTE | 2018-12-19 13:54 | NUR ---
Dressing noted to be saturated on lateral surgical wound. Abd changed and contacted Josette DEPUTY SHERIFF. Waiting for orders.
--- NOTE | 2018-12-19 14:00 | NUR ---
Received orders to place a pressure dressing on surgical wound and order stat H/H.
--- NOTE | 2018-12-19 14:05 | NUR ---
[facility] PHARMACY NOTES (TPN per pharmacy) Subjective: 43 y/o male presented with fever and significant anemia, possible sepsis. pt was found to have malposition G-tube with abdominal abscess. PT had surgery for GT removal, incision of abdominal wall abscess and necrotic tissue. per wound care note, he has left buttock stage 2 PI. Since MD & surgeon anticipated more days without tube feeding, they decided to place pt on TPN until G-tube insertion possible.Per MD note, consider G tube once WBC trends down and cleared by ID. Professional Nurse recommendation: Rec TPN goal: D10%, AA 4.25% @ 70ml/hr + IL 20% 250ml daily. At goal would provide 1357 kcal and 71gm protein Objective: Na 130, K 4.2, CL 97, CO2 22, BUN/SCR 33/1.7, CA 8.0 (corrected ca =9.36), MAG 1.9, PHOS 3.0, ALBUMIN 2.3, GLUCOSE 111, TG 286 (12/16) Assessment/Plan: 1) TPN bag #8 as D10% + AA 4.25% at a goal rate of 70 ml/hr,has 30 meq of Na acetate, 30 meq Nacl, Kphos 9 mmole, MVI 10ml, trace element 1 ml & TPN bag #9 as D10% + AA 4.25% at a goal rate of 70 ml/hr, will add 30 meq of Na acetate, 30 meq Nacl, 9 mmol of Kphos. 3) will continue intralipids 20% 250ml over 24 hrs (re-order intralipids daily). Will monitor TG level periodically (ordered for 12/20) 4)pt currently on accuck q6hr with regular insulin sliding scale 5) will order labs for am will continue to monitor and adjust the electrolytes and TPN as the need arise. Pt is on Bactrim IV as well, will follow K levels and adjust TPN as accordingly
[2018-12-19 14:18] LABS: HEMOGLOBIN 7.9 g/dL (12.5-16.3)
[2018-12-19] MEDS: SOD FERRIC GLUC COMPLX/SUCROSE 125 MG in IV NORMAL SALINE 100 ML IV SCH (14:18)
--- NOTE | 2018-12-19 14:30 | NUR ---
Dr singh in to see patient the results to h/h were reported along with an update on patient status and temp. One unit of blood ordered.
[2018-12-19] MEDS: ACETAMINOPHEN 650 MG SUPP.RECT RC PRN (15:56)
[2018-12-19] MEDS: FLUCONAZOLE 200 MG/NS 100ML IV 100 MG in PREMIXED 1 EACH IV SCH (17:54)
[2018-12-19] MEDS ORDERED: LEVOFLOXACIN 750MG/D5W 750 MG in PREMIXED 1 EACH IV SCH (18:00)
--- NOTE | 2018-12-19 18:00 | NUR ---
Dressing chaged and noted that the pressure dressing was saturated but not the overlaying abd pad on lateral wound, and abd pad changed on medial wound on abdomen due to fluid saturation.
--- NOTE | 2018-12-19 18:42 | NUR ---
Patient is currently in bed No distress noted at this time. Patient is on vent a/c 18, portex 8, peep 5, tv 400, fio2 30%. Patient is sinus tach 109, no swelling noted on extremities. Patient is currently receiving blood transfusion, no reactions noted thus far. Fever has returned back to normal, and patients galindo is draining clear yellow urine. Air mattress is inflated and instructions received from diamante COMMERCIAL FINANCE ANALYST to not change the dressing, and to d/c heparin until further notice. Patient has been frequently turned and repositioned with heels and elbows offloaded.
[2018-12-19] MEDS ORDERED: IV FAT EMULSIONS 20% 250 ML IV ONE (19:00)
--- NOTE | 2018-12-19 20:00 | NUR ---
RECEIVED PT OPENS HIS EYES TO VERBAL STIMULI. TRACH TO VENT W/ SETTINGS OF AC-18, TV-400, FIO2-30%, PEEP-+5 W/ O2 SAT OF 99%.TPN @ 70CC/HR VIA PICC LINE ON CEFERINO. INTRALIPID @ 10.2 CC/HR. BLOOD TRANSFUSION DONE. HEP LOCK ON LAC INTACT & PATENT. SUCTIONED PT. VIA TRACH W/ MINIMAL THICK WHITISH MUCOUS.ABDOMINAL DRSG. INTACT W/ ABD. BINDER. REPOSITIONED ON HER SIDE W/ HOB ELEVATED.AFEBRILE.
--- NOTE | 2018-12-19 22:08 | NUR ---
ABDOMINAL WOUND TREATMENT HOLD ORDERED. SOPHIA PHILIP W/ BINDER. Addendum: 12/19/18 at 2210 by SHARMAINE BANGURA RN Amended: Links added.
--- NOTE | 2018-12-19 22:30 | NUR ---
MEDICATED W/ MORPHINE 4MG IVP FOR FACIAL GRIMACING, BP IS ELEVATED.
--- NOTE | 2018-12-19 23:00 | NUR ---
HS CARE DONE. REPOSITIONED W/ HOB ELEVATED.
[2018-12-20] VITALS (24 sets, daily range): BP systolic 137–179; BP diastolic 73–95
[2018-12-20] MEDS: ALBUTEROL SULFATE 2.5 MG/3 ML NEBU IH SCH ×2 (00:35→07:32)
[2018-12-20] MEDS: hydrALAZINE HCL 20 MG/1 ML VIAL IV PRN ×4 (01:15→20:13)
[2018-12-20] MEDS: MORPHINE SULFATE 4 MG/1 ML DISP.SYRIN IV PRN (01:25)
--- NOTE | 2018-12-20 02:15 | NUR ---
CALLED DR ROMERO RE: PT RESTLESSNESS. HR-130S, BP ELEVATED W/ FACIAL GRIMACING WITH ORDER OF DILAUDID 1MG IVP PRN.
[2018-12-20] MEDS: HYDROMORPHONE 1 MG/1 ML DISP.SYRIN IV PRN ×7 (02:20→21:23)
--- NOTE | 2018-12-20 02:20 | NUR ---
CHECKED ABDOMINAL DRSG, NO BLEEDING NOTED.
--- NOTE | 2018-12-20 03:00 | NUR ---
CHECKED PT. TEMP. RECTALLY-99.8, TYLENOL 650MG SUPP GIVEN, COOLING MEASURES APPLIED. HR- 134/MIN.
[2018-12-20] MEDS: ACETAMINOPHEN 650 MG SUPP.RECT RC PRN ×3 (03:04→15:36)
[2018-12-20] MEDS: IV NORMAL SALINE 250 ML IV PRN (03:40)
--- NOTE | 2018-12-20 03:58 | NUR ---
PT ON CONT GALINDO VENT WITH PORTEX # [address] AND SECURED, WITH SAME CURRENT VENT SETTINGS, A/C 18, VT 400ML, 30%, PEEP5, PT DOES ASSIST AT TIMRES, [facility] INLINE RXS X 2 WITH ALBUTEROL, TOLL WELL, SUCTIONED LIGHT PALE YELL TINGE SECRETIONS, AND TRACH CARE DONE, CHECK CUFF, CHANGE HME AND SPRAGUE, ALL VENT ALARMS GOOD. Luisa MARTÍNEZ RCP Addendum: 12/20/18 at 0400 by BUBBA MARTÍNEZ RT Amended: Links added.
[2018-12-20 05:21] LABS: BASOPHILS # (AUTO) 0.1 K/uL (0.0-8.0); BASOPHILS % (AUTO) 0.4 % (0.0-2.0); EOSINOPHILS # (AUTO) 0.5 K/uL (0.0-0.7); EOSINOPHILS % (AUTO) 3.1 % (0.0-7.0); HEMATOCRIT 25.9 % (36.7-47.1); HEMOGLOBIN 8.6 g/dL (12.5-16.3); LYMPHOCYTES # (AUTO) 0.8 K/uL (20.0-40.0); LYMPHOCYTES % (AUTO) 4.9 % (20.5-51.5); MEAN CORPUSCULAR HEMOGLOBIN 27.9 uug (23.8-33.4); MEAN CORPUSCULAR HGB CONC 33 g/dL (32.5-36.3); MEAN CORPUSCULAR VOLUME 84.3 fL (73.0-96.2); MONOCYTES # (AUTO) 0.7 K/uL (2.0-10.0); MONOCYTES % (AUTO) 4.1 % (0.0-11.0); NEUTROPHILS # (AUTO) 14.8 K/uL (1.8-8.9); NEUTROPHILS % (AUTO) 87.5 % (38.5-71.5); PLATELET COUNT (AUTO) 581 K/uL (152-348); RED BLOOD CELL COUNT(AUTO) 3.07 MIL/uL (4.06-5.63); WHITE BLOOD COUNT (AUTO) 16.9 K/uL (3.6-10.2)
[2018-12-20] MEDS: BLOOD SUGAR DIAGNOSTIC 1 EACH STRIP VI SCH ×3 (05:27→18:39)
[2018-12-20] MEDS: INSULIN REGULAR, HUMAN 300 UNIT/3 ML VIAL SQ PRN (05:28)
[2018-12-20] MEDS: SULFAMETHOXAZOL/TRIMETHOPRI IV 20 ML in IV DEXTROSE 5% 500 ML IV SCH ×3 (05:29→22:00)
[2018-12-20] MEDS: hydrALAZINE HCL 50 MG TABLET GT SCH ×3 (05:30→22:00)
[2018-12-20 05:34] LABS: CREATININE 1.7 mg/dL (0.6-1.3); MAGNESIUM 1.8 mg/dL (1.8-2.4); POTASSIUM 4.9 mmol/L (3.5-5.1)
--- NOTE | 2018-12-20 05:40 | NUR ---
AM CARE DONE AFTER DILAUDID 1MG GIVEN IVP. ORAL CARE DONE..REPOSITIONED ON HIS R SIDE W/ HOB ELEVATED.
--- NOTE | 2018-12-20 07:20 | NUR ---
PT ON CONT GALINDO VENT WITH PORTEX # [address] AND SECURED, WITH VENT SETTINGS, A/C 18, VT 400ML, 30%, PEEP 5, patient is on air mattress, dvt pump on, galindo draining clear yellow urine, iv tpn/lipids running. Patient appears to be comfortable, no distress noted at this time.
[2018-12-20] MEDS: AMLODIPINE 5 MG TABLET GT SCH (08:04)
[2018-12-20] MEDS: CHLORTHALIDONE 25 MG TABLET GT SCH (08:04)
[2018-12-20] MEDS: SENNOSIDES 1 TABLET GT SCH ×2 (08:04→16:29)
[2018-12-20] MEDS: PANTOPRAZOLE SODIUM 40 MG VIAL IV SCH (08:05)
[2018-12-20] MEDS: CHLORHEXIDINE GLUCONATE 15 ML MOUTHWASH MM SCH ×2 (08:05→16:30)
[2018-12-20] MEDS: Z GUARD REMEDY PASTE 57 GM TUBE TOP SCH ×2 (08:06→20:49)
[2018-12-20] MEDS: SODIUM HYPOCHLORITE 0.125% 473 ML BOTTLE TP SCH (08:06)
[2018-12-20] MEDS: METOPROLOL TARTRATE 5 MG/5 ML VIAL IVP PRN (09:44)
--- NOTE | 2018-12-20 10:20 | NUR ---
PATIENT SEEN BY DR HAHN.
[2018-12-20] MEDS: LORAZEPAM 2 MG/1 ML VIAL IV PRN (10:27)
--- NOTE | 2018-12-20 10:54 | NUR ---
PATIENT SEEN BY DR BALDERAS
[2018-12-20] MEDS: CLONIDINE-TTS 1 PATCH TD SCH (11:35)
--- NOTE | 2018-12-20 14:00 | NUR ---
Bed bath given, Patient tolerated well, No distress noted. Wounds assessed and dressed.
--- NOTE | 2018-12-20 14:18 | NUR ---
[facility] PHARMACY NOTES (TPN per pharmacy) Subjective: 43 y/o male presented with fever and significant anemia, possible sepsis. pt was found to have malposition G-tube with abdominal abscess. PT had surgery for GT removal, incision of abdominal wall abscess and necrotic tissue. per wound care note, he has left buttock stage 2 PI. Since MD & surgeon anticipated more days without tube feeding, they decided to place pt on TPN until G-tube insertion possible.Per MD note, consider G tube once WBC trends down and cleared by ID. Phlebotomy Program Coordinator recommendation: Rec TPN goal: D10%, AA 4.25% @ 70ml/hr + IL 20% 250ml daily. At goal would provide 1357 kcal and 71gm protein Objective: Na 128, K 4.9, CL 96, CO2 19, BUN/SCR 36/1.7, CA 8.5 (corrected ca =9.9), MAG 1.8, PHOS 4.0, ALBUMIN 2.3 (12/18), GLUCOSE 136, TG 286 (12/16) Assessment/Plan: 1) TPN bag #10 as D10% + AA 4.25% at a goal rate of 70 ml/hr,has 40 meq of Na acetate, 60 meq Nacl, 1gm Mg sulfate, MVI 10ml, trace element 1 ml & TPN bag #11 as D10% + AA 4.25% at a goal rate of 70 ml/hr, will add 40 meq of Na acetate, 60 meq Nacl, 1gm Mg sulfate. 3) will continue intralipids 20% 250ml over 24 hrs (re-order intralipids daily). Will monitor TG level periodically 4)pt currently on accuck q6hr with regular insulin sliding scale 5) will order labs for am will continue to monitor and adjust the electrolytes and TPN as the need arise. Pt is on Bactrim IV as well, will follow K levels and adjust TPN as accordingly
[2018-12-20] MEDS ORDERED: SODIUM ACETATE IV PRN ×7 (16:00)
[2018-12-20] MEDS ORDERED: SODIUM CHLORIDE IV PRN ×7 (16:00)
[2018-12-20] MEDS ORDERED: [UNRECOGNIZED DRUG - OTHER] IV PRN ×7 (16:00)
[2018-12-20] MEDS ORDERED: MAGNESIUM SULFATE IV PRN ×7 (16:00)
--- NOTE | 2018-12-20 16:00 | NUR ---
Patient seen by Michelle GONZALEZ from neuro.
[2018-12-20] MEDS: FLUCONAZOLE 200 MG/NS 100ML IV 100 MG in PREMIXED 1 EACH IV SCH (16:29)
--- NOTE | 2018-12-20 18:28 | NUR ---
PT REMAINS ON MECHANICAL VENTILATOR, TOLERATING VENT SETTINGS WELL. NO DISTRESS NOTED. WILL CONTINUE VENT MANAGEMENT, MONITOR FOR DISTRESS. .
--- NOTE | 2018-12-20 18:41 | NUR ---
Patient is currently in bed No distress noted at this time. Patient is on vent a/c 18, portex 8, peep 5, tv 400, fio2 30%. Patient is sinus 92, no swelling noted on extremities. Patient's galindo is draining clear yellow urine. Air mattress is inflated and instructions received from diamante CORPORATE LOGISTICS MANAGER to change the dressing once daily. Patient has been frequently turned and repositioned with heels and elbows offloaded, sacral mepilex intact.
--- NOTE | 2018-12-20 20:00 | NUR ---
RECEIVED PT. RESTING QUITELY THIS TIME. TRACH TO VENT W/ SETTINGS OF AC-18, TV-400. FIO2-30%, PEEP-+5 W/ O2 SAT OF 99%. SUCTIONED VIA TRACH W/ MINIMAL AMT OF THICK PALE YELLOWISH MUCOUS. ABD. DRSG INTACT W/ ABD. BINDER. TPN @ 70CC/HR VIA PICC LINE ON CEFERINO. INTRALIPID @ 10CC/HR. C-SCOPE STACH. AFEBRILE.
[2018-12-20] MEDS ORDERED: IV FAT EMULSIONS 20% 250 ML IV ONE (21:00)
--- NOTE | 2018-12-20 21:53 | NUR ---
PT. IS RESTLESS W/ FACIAL GRIMACING, MEDICATED W/ DILAUDID 1MG IVP PRN ORDER FOR PAIN.
--- NOTE | 2018-12-20 22:30 | NUR ---
HS CARE DONE. REPOSITIONED W/ HOB ELEVATED.
[2018-12-21] VITALS (26 sets, daily range): BP systolic 115–180; BP diastolic 67–90
[2018-12-21] MEDS: BLOOD SUGAR DIAGNOSTIC 1 EACH STRIP VI SCH ×5 (00:56→23:20)
[2018-12-21] MEDS: LORAZEPAM 2 MG/1 ML VIAL IV PRN ×4 (00:59→22:37)
[2018-12-21] MEDS: HYDROMORPHONE 1 MG/1 ML DISP.SYRIN IV PRN ×5 (01:10→20:58)
--- NOTE | 2018-12-21 02:36 | NUR ---
PT ON CONT GALINDO VENT WITH PORTEX # [address] AND SECURED, WITH SAME CURRENT VENT SETTINGS, A/C 18 , 400ML PEEP 5, 30%, PT DOES ASSIST AT TIMES, DOES SEEM TO RESPONSE TO PAIN, SUCTIONED VERY LIGHT WHITISH TINGE SECRETIONS, AND SUCTION MOUTH WITH EDDIE BUTT WELL, TRACH CARE DONE, ALL VENT ALARMS GOOD, NO VENT CHANGES MADE AMBU BAG AT BEDSIDE CHECK CUFF, CHANGE HME. Luisa GUERRAP Addendum: 12/21/18 at 0239 by BUBBA MARTÍNEZ RT Amended: Links added.
[2018-12-21] MEDS ORDERED: hydrALAZINE HCL 20 MG/1 ML VIAL ONE (03:15)
[2018-12-21] MEDS: hydrALAZINE HCL 20 MG/1 ML VIAL IV PRN (03:25)
[2018-12-21 04:45] LABS: BASOPHILS # (AUTO) 0.1 K/uL (0.0-8.0); BASOPHILS % (AUTO) 0.6 % (0.0-2.0); EOSINOPHILS # (AUTO) 0.8 K/uL (0.0-0.7); EOSINOPHILS % (AUTO) 5.7 % (0.0-7.0); HEMATOCRIT 23.2 % (36.7-47.1); HEMOGLOBIN 7.8 g/dL (12.5-16.3); MEAN CORPUSCULAR HEMOGLOBIN 28.4 uug (23.8-33.4); MEAN CORPUSCULAR HGB CONC 34 g/dL (32.5-36.3); MEAN CORPUSCULAR VOLUME 84.1 fL (73.0-96.2); MONOCYTES # (AUTO) 0.8 K/uL (2.0-10.0); MONOCYTES % (AUTO) 5.4 % (0.0-11.0); NEUTROPHILS # (AUTO) 11.6 K/uL (1.8-8.9); NEUTROPHILS % (AUTO) 81.3 % (38.5-71.5); PLATELET COUNT (AUTO) 563 K/uL (152-348); RED BLOOD CELL COUNT(AUTO) 2.76 MIL/uL (4.06-5.63); WHITE BLOOD COUNT (AUTO) 14.2 K/uL (3.6-10.2)
[2018-12-21 04:56] LABS: CREATININE 1.8 mg/dL (0.6-1.3); PHOSPHOROUS 3.5 mg/dL (2.5-4.9); POTASSIUM 5.1 mmol/L (3.5-5.1)
--- NOTE | 2018-12-21 05:15 | NUR ---
AM CARE DONE. TRACH CARE DONE. ABD. DRSG REMAINS INTACT & DRY W/ ABD. BINDER IN PLACE.
[2018-12-21] MEDS: SULFAMETHOXAZOL/TRIMETHOPRI IV 20 ML in IV DEXTROSE 5% 500 ML IV SCH (05:34)
[2018-12-21] MEDS: IV NORMAL SALINE 250 ML IV PRN (05:38)
[2018-12-21] MEDS: hydrALAZINE HCL 50 MG TABLET GT SCH ×3 (06:00→22:00)
--- NOTE | 2018-12-21 06:00 | NUR ---
CXR DONE. REPOSITIONED ON HIS R SIDE.
--- NOTE | 2018-12-21 07:00 | NUR ---
PT RECEIVED ON GALINDO VENT WITH SETTINGS OF AC18 400 PEEP +5 30%. PT TRACH CARE WAS DONE. PT TRACH SIZE PORTEX 8 . PT SUCTION NO DISTRESS NOTED CUFF CHECKED WITH CONSUMER ANALYST. PT AMBU BAG AND BACK UP TRACH AT BED SIDE. PT ALARMS ON AND AUDIBLE WILL CONTINUE TO MONITOR PT.
[2018-12-21 07:06] LABS: THYROID STIMULATING HORMONE 4.802 mIU/mL (0.358-3.740)
--- NOTE | 2018-12-21 07:15 | NUR ---
[facility] 43 [facility] male was admitted on 12/10/17 for ARF, UTI, Anemia. patient is quadriplegic, trach to vent,fio2 30%, ac 18, tezh0lp tv 400. is NPO. TPN infusing via CEFERINO PICC line at 70ml/hr and Intralipids at 10ml/hr. has galindo catheter.intact. ekg is sinus rhythm on contact isolation for MRSA abdominal wound. s/p incision and drainage of abdominal abscess 12/14. no bleeding noted. Addendum: 12/21/18 at 0838 by ONEIL MARIE RN Amended: Links added.
--- NOTE | 2018-12-21 07:34 | NUR ---
restless. bp high, apresoline not due yet. dilaudid not due yet. medicated with ativan IV Addendum: 12/21/18 at 0734 by ONEIL MARIE RN Amended: Links added.
[2018-12-21] MEDS ORDERED: MAGNESIUM SULFATE IV PRN ×5 (08:00)
[2018-12-21] MEDS ORDERED: SODIUM CHLORIDE IV PRN ×11 (08:00→19:00)
[2018-12-21] MEDS ORDERED: [UNRECOGNIZED DRUG - OTHER] IV PRN ×5 (08:00)
[2018-12-21] MEDS ORDERED: SODIUM ACETATE IV PRN ×11 (08:00→19:00)
[2018-12-21] MEDS ORDERED: SULFAMETHOXAZOL IV SCH (08:02)
[2018-12-21] MEDS ORDERED: TRIMETHOPRI IV SCH (08:02)
[2018-12-21] MEDS ORDERED: DEXTROSE IV SCH (08:02)
[2018-12-21] MEDS: PANTOPRAZOLE SODIUM 40 MG VIAL IV SCH (08:18)
--- NOTE | 2018-12-21 08:24 | NUR ---
medicated for pain, abdominal. unable to scale . frequent facial grimacing and arm movements Addendum: 12/21/18 at 0824 by ONEIL MARIE RN Amended: Links added.
[2018-12-21] MEDS: CHLORHEXIDINE GLUCONATE 15 ML MOUTHWASH MM SCH ×2 (08:46→16:45)
[2018-12-21] MEDS: SODIUM HYPOCHLORITE 0.125% 473 ML BOTTLE TP SCH (08:47)
[2018-12-21] MEDS: CHLORTHALIDONE 25 MG TABLET GT SCH (08:48)
[2018-12-21] MEDS: Z GUARD REMEDY PASTE 57 GM TUBE TOP SCH ×2 (08:48→20:53)
[2018-12-21] MEDS: AMLODIPINE 5 MG TABLET GT SCH (08:48)
[2018-12-21] MEDS: SENNOSIDES 1 TABLET GT SCH ×2 (08:49→16:45)
--- NOTE | 2018-12-21 10:00 | NUR ---
seenphilipp Shipley. with new orders Addendum: 12/21/18 at 1127 by ONEIL MARIE RN Amended: Links added.
--- NOTE | 2018-12-21 11:18 | NUR ---
seen by CARLOS Aceves. abdominal dressings removed and redressed with Dakins' soaked kerlix dressings. abd dressings and abd binders reapplied Addendum: 12/21/18 at 1118 by ONEIL MARIE RN Amended: Links added.
--- NOTE | 2018-12-21 12:26 | NUR ---
accucheck 99, no insulin coverage Addendum: 12/21/18 at 1227 by ONEIL MARIE RN Amended: Links added.
--- NOTE | 2018-12-21 12:33 | NUR ---
medicated for abdominal pain/unable to scale. Addendum: 12/21/18 at 1245 by ONEIL MARIE RN Amended: Links added.
[2018-12-21] MEDS ORDERED: IV NS 1000 ML 1,000 ML IV ONE (13:00)
--- NOTE | 2018-12-21 13:00 | NUR ---
seen by dr Brar. orders received. IV NS started at 50ml/hr times 1 liter. Addendum: 12/21/18 at 1754 by ONEIL MARIE RN Amended: Links added.
[2018-12-21] MEDS: SULFAMETHOXAZOL IV SCH ×2 (14:03→22:06)
[2018-12-21] MEDS: DEXTROSE IV SCH ×2 (14:03→22:06)
[2018-12-21] MEDS: TRIMETHOPRI IV SCH ×2 (14:03→22:06)
--- NOTE | 2018-12-21 14:54 | NUR ---
[facility] PHARMACY NOTES (TPN per pharmacy) Subjective: 43 y/o male presented with fever and significant anemia, possible sepsis. pt was found to have malposition G-tube with abdominal abscess. PT had surgery for GT removal, incision of abdominal wall abscess and necrotic tissue. per wound care note, he has left buttock stage 2 PI. Since MD & surgeon anticipated more days without tube feeding, they decided to place pt on TPN until G-tube insertion possible.Per MD note, consider G tube once WBC trends down and cleared by ID. Crepe Machine Operator recommendation: Rec TPN goal: D10%, AA 4.25% @ 70ml/hr + IL 20% 250ml daily. At goal would provide 1357 kcal and 71gm protein Objective: Na 129, K 5.1, CL 97, CO2 21, BUN/SCR 37/1.8, CA 8.5 (corrected ca =9.9), MAG 2.0, PHOS 3.5, ALBUMIN 2.3 (12/18), GLUCOSE 101, TG 286 (12/16) Assessment/Plan: 1) TPN bag #12 as D10% + AA 4.25% at a goal rate of 70 ml/hr,has 40 meq of Na acetate, 60 meq Nacl, MVI 10ml, trace element 1 ml 2) will continue intralipids 20% 250ml over 24 hrs (re-order intralipids daily). Will monitor TG level periodically 3)pt currently on accuck q6hr with regular insulin sliding scale 4) will order labs for am 5) Pt is on Bactrim IV in D5% 500 ml per dose (3 doses per 24hrs). changed to minimum dilution of 300ml. MD also ordered NS at 50 ml/hr until tomorrow 0900. Will monitor Na & K level closely. will continue to monitor and adjust the electrolytes and TPN as the need arise.
[2018-12-21] MEDS: FLUCONAZOLE 200 MG/NS 100ML IV 100 MG in PREMIXED 1 EACH IV SCH (15:51)
--- NOTE | 2018-12-21 16:57 | NUR ---
medicated for agitation Addendum: 12/21/18 at 1657 by ONEIL MARIE RN Amended: Links added.
--- NOTE | 2018-12-21 18:04 | NUR ---
accroland 99, no coverage Addendum: 12/21/18 at 1804 by ONEIL MARIE RN Amended: Isabella added. Addendum: 12/21/18 at 1922 by ONEIL MARIE RN Amended: Isabella hutson.
--- NOTE | 2018-12-21 18:10 | NUR ---
blood transfusion with 1 unit prbcs started. via left AC #18 Addendum: 12/21/18 at 1854 by ONEIL MARIE RN Amended: Links added.
[2018-12-21] MEDS ORDERED: [UNRECOGNIZED DRUG - OTHER] IV PRN ×6 (19:00)
--- NOTE | 2018-12-21 19:08 | NUR ---
report given to Ana Addendum: 12/21/18 at 1908 by ONEIL MARIE RN Amended: Links added.
--- NOTE | 2018-12-21 20:00 | NUR ---
RECEIVED PT RESTING QUITELY THIS TIME.TRACH TO VENT W/ SETTINGS OF AC=18,TV-400, FIO2-30%, PEEP-+5. W/ O2 SAT OF 99%. SUCTIONED VIA TRACH W/ SCANTY AMT. OF THICK WHITISH MUCOUS.. TPN @ 70CC/HR VIA PICC LINE ON CEFERINO. INTRALIPID @ 10CC/HR. NS @ 50CC/HR. NS @ TKO FOR IVPB MEDS. AFEBRILE. BP STABLE.
--- NOTE | 2018-12-21 20:58 | NUR ---
MEDICATED W/ DILAUDID 1MG IVP FOR FACIAL GRIMACING & RESTLESSNESS.
[2018-12-21] MEDS ORDERED: IV FAT EMULSIONS 20% 250 ML IV ONE (21:00)
--- NOTE | 2018-12-21 22:28 | NUR ---
REPOSITIONED ON HIS SIDE W/ HOB ELEVATED AFTER HS CARE DONE.
--- NOTE | 2018-12-21 23:09 | NUR ---
PATIENT RECEIVED ON GALINDO VENT VIA TRACH. PATIENT IS ON THE FOLLOWING SETTINGS THAT ARE CHARTED ON THE MECHANICAL VENTILATOR NOTES. TRACH TUBE AND IS PATENT AND SECURED WITH TRACH TIES. SUCTIONED SMALL AMOUNTS OF WHITE AND YELLOWISH SECRETIONS. TRACH CARE DONE. HME CHANGED. VENT ALARMS CHECKED AND THEY ARE ON AND AUDIBLE. VENT IS PLUGGED IN THE RED OUTLET. AMBU BAG AND BACK UP TRACH IS BY BEDSIDE. PATIENT IS TOLERATING CURRENT VENTILATOR SETTINGS WELL AT THIS TIME. WILL CONTINUE TO MONITOR PATIENT.
[2018-12-22] VITALS (19 sets, daily range): BP systolic 103–151; BP diastolic 68–93
[2018-12-22] MEDS: HYDROMORPHONE 1 MG/1 ML DISP.SYRIN IV PRN ×5 (00:22→23:52)
--- NOTE | 2018-12-22 04:30 | NUR ---
AM CARE DONE AFTER MEDICATED W/ DILAUDID 1MG IVP FOR PAIN. HAD LARGE AMT. LOOSE STOOL FOUL SMELLING. TRACH CARE DONE, ORAL CARE DONE. ABD. DRSG INTACT W/ ABD. BINDER. REPOSITIONED ON HIS BACK W/ HOB ELEVATED.
[2018-12-22] MEDS: IV NORMAL SALINE 250 ML IV PRN (04:47)
[2018-12-22] MEDS: LORAZEPAM 2 MG/1 ML VIAL IV PRN ×2 (04:59→12:35)
[2018-12-22 05:09] LABS: BASOPHILS # (AUTO) 0.1 K/uL (0.0-8.0); BASOPHILS % (AUTO) 0.6 % (0.0-2.0); EOSINOPHILS # (AUTO) 0.6 K/uL (0.0-0.7); EOSINOPHILS % (AUTO) 6.2 % (0.0-7.0); HEMATOCRIT 23.2 % (36.7-47.1); LYMPHOCYTES # (AUTO) 0.8 K/uL (20.0-40.0); MEAN CORPUSCULAR HEMOGLOBIN 29.2 uug (23.8-33.4); MEAN CORPUSCULAR HGB CONC 35 g/dL (32.5-36.3); MEAN CORPUSCULAR VOLUME 84.5 fL (73.0-96.2); MONOCYTES # (AUTO) 0.6 K/uL (2.0-10.0); MONOCYTES % (AUTO) 6.2 % (0.0-11.0); NEUTROPHILS # (AUTO) 7.2 K/uL (1.8-8.9); PLATELET COUNT (AUTO) 485 K/uL (152-348); RED BLOOD CELL COUNT(AUTO) 2.74 MIL/uL (4.06-5.63); WHITE BLOOD COUNT (AUTO) 9.2 K/uL (3.6-10.2)
[2018-12-22 05:21] LABS: CREATININE 1.9 mg/dL (0.6-1.3); MAGNESIUM 2.2 mg/dL (1.8-2.4); PHOSPHOROUS 3.4 mg/dL (2.5-4.9); POTASSIUM 4.8 mmol/L (3.5-5.1)
[2018-12-22] MEDS: SULFAMETHOXAZOL IV SCH ×3 (05:36→21:33)
[2018-12-22] MEDS: BLOOD SUGAR DIAGNOSTIC 1 EACH STRIP VI SCH ×4 (05:36→23:53)
[2018-12-22] MEDS: TRIMETHOPRI IV SCH ×3 (05:36→21:33)
[2018-12-22] MEDS: hydrALAZINE HCL 50 MG TABLET GT SCH ×3 (05:36→20:37)
[2018-12-22] MEDS: DEXTROSE IV SCH ×3 (05:36→21:33)
--- NOTE | 2018-12-22 05:45 | NUR ---
REPOSITIONED ON HIS R SIDE W/ HOB ELEVATED. ABD DRSG INTACT W/ ABD BINDER.
--- NOTE | 2018-12-22 07:30 | NUR ---
[facility] 43 yr [facility] male was admitted on 12/10/17 for ARF, UTI, Anemia. patient is quadriplegic, trach to vent,fio2 30%, ac 18, [id number] tv 400. is NPO. TPN infusing via CEFERINO PICC line at 70ml/hr and Intralipids at 10ml/hr. has galindo catheter.intact. ekg is sinus rhythm on contact isolation for MRSA abdominal wound Addendum: 12/22/18 at 1302 by ONEIL MARIE RN Amended: Links added.
--- NOTE | 2018-12-22 07:49 | NUR ---
PT REC'D TRACH TO VENT, GALINDO TO PORTEX [address], PATENT AND SECURE. PT TOLERATING CURRENT SETTINGS WELL NO DISTRESS NOTED. VENT ALARMS AUDIBLE CHECKED AND RESET, BVM AT BEDSIDE.
--- NOTE | 2018-12-22 08:30 | NUR ---
medicated for abdominal pain /unable to scale Addendum: 12/22/18 at 1325 by ONEIL MARIE RN Amended: Links added.
[2018-12-22] MEDS: PANTOPRAZOLE SODIUM 40 MG VIAL IV SCH (08:33)
[2018-12-22] MEDS: AMLODIPINE 5 MG TABLET GT SCH (09:00)
[2018-12-22] MEDS: SENNOSIDES 1 TABLET GT SCH ×2 (09:00→16:57)
[2018-12-22] MEDS: CHLORTHALIDONE 25 MG TABLET GT SCH (09:00)
[2018-12-22] MEDS: EPOETIN ALFA 10,000 UNITS/ML VIAL SQ SCH (10:49)
[2018-12-22] MEDS: SODIUM HYPOCHLORITE 0.125% 473 ML BOTTLE TP SCH (10:50)
[2018-12-22] MEDS: Z GUARD REMEDY PASTE 57 GM TUBE TOP SCH ×2 (10:50→20:46)
[2018-12-22] MEDS: CHLORHEXIDINE GLUCONATE 15 ML MOUTHWASH MM SCH ×2 (10:51→16:57)
--- NOTE | 2018-12-22 11:30 | NUR ---
seen by CARLOS Wooten orders received. Addendum: 12/22/18 at 1310 by ONEIL MARIE RN Amended: Links added. Addendum: 12/22/18 at 1323 by ONEIL MARIE RN Amended: Links added. Addendum: 12/22/18 at 1325 by ONEIL MARIE RN Amended: Links added.
--- NOTE | 2018-12-22 11:49 | NUR ---
[facility] PHARMACY NOTES (TPN per pharmacy) Subjective: 43 y/o male presented with fever and significant anemia, possible sepsis. pt was found to have malposition G-tube with abdominal abscess. PT had surgery for GT removal, incision of abdominal wall abscess and necrotic tissue. per wound care note, he has left buttock stage 2 PI. Since MD & surgeon anticipated more days without tube feeding, they decided to place pt on TPN until G-tube insertion possible.Per MD note, consider G tube once WBC trends down and cleared by ID. Lace Paper Machine Operator recommendation: Rec TPN goal: D10%, AA 4.25% @ 70ml/hr + IL 20% 250ml daily. At goal would provide 1357 kcal and 71gm protein Objective: Na 132, K 4.8, CL 101, CO2 21, BUN/SCR 39/1.9, CA 8.4 (corrected ca =9.76), MAG 2.2, PHOS 3.4, ALBUMIN 2.3 (12/18), GLUCOSE 98, TG 286 (12/16) Assessment/Plan: 1) TPN bag #13 as D10% + AA 4.25% at a goal rate of 70 ml/hr,has 40 meq of Na acetate, 80 meq Nacl & TPN bag #14 as D10% + AA 4.25% at a goal rate of 70 ml/hr,has 40 meq of Na acetate, 80 meq Nacl, MVI 10ml, trace element 1 ml 2) will continue intralipids 20% 250ml over 24 hrs (re-order intralipids daily). Will monitor TG level periodically 3)pt currently on accuck q6hr with regular insulin sliding scale 4) will order labs for am 5) Pt is on Bactrim IV in D5% 500 ml per dose (3 doses per 24hrs). changed to minimum dilution of 300ml. Will monitor Na & K level closely. will continue to monitor and adjust the electrolytes and TPN as the need arise.
--- NOTE | 2018-12-22 12:00 | NUR ---
silvestre 93, no coverage Addendum: 12/22/18 at 1230 by ONEIL MARIE RN Amended: Links added.
--- NOTE | 2018-12-22 12:22 | NUR ---
seen by Dr Adelson. ochoa new orders Addendum: 12/22/18 at 1226 by TINY BUENO RN Amended: Links added.
--- NOTE | 2018-12-22 12:35 | NUR ---
ativan given for agitation and restlessness. , Annabelle is visiting. Patient tachycardic up to 110/min Addendum: 12/22/18 at 1323 by ONEIL MARIE RN Amended: Links added. Addendum: 12/22/18 at 1325 by ONEIL MARIE RN Amended: Links added.
[2018-12-22] MEDS ORDERED: SODIUM CHLORIDE IV PRN ×4 (14:00)
[2018-12-22] MEDS ORDERED: [UNRECOGNIZED DRUG - OTHER] IV PRN ×4 (14:00)
[2018-12-22] MEDS ORDERED: SODIUM ACETATE IV PRN ×4 (14:00)
--- NOTE | 2018-12-22 15:30 | NUR ---
seen by gabriela Gallagher orders received Addendum: 12/22/18 at 1757 by ONEIL MARIE RN Amended: Links added.
--- NOTE | 2018-12-22 16:15 | NUR ---
medicated for abdominal pain scale: unable to scale. wound care done and pm care done. Addendum: 12/22/18 at 1755 by ONEIL MARIE RN Amended: Links added. Addendum: 12/22/18 at 1757 by ONEIL MARIE RN Amended: Links added.
--- NOTE | 2018-12-22 17:52 | NUR ---
silvestre 112, no coverage Addendum: 12/22/18 at 1752 by ONEIL MARIE RN Amended: Links added.
--- NOTE | 2018-12-22 19:14 | NUR ---
Report given to Yang RN Addendum: 12/22/18 at 1915 by ONEIL MARIE RN Amended: Links added.
[2018-12-22] MEDS ORDERED: IV FAT EMULSIONS 20% 250 ML IV ONE (21:00)
--- NOTE | 2018-12-22 23:39 | NUR ---
Patient endorsed on Merida Vent with ordered vent settings of AC 18, vt 400, +5, 30%. He is trached with a cuffed Portex 8. GRADING CLERK used for cuff inflation. Airway patent and secured at midline. Treatments administered and tolerated well, no adverse reactions noted. Oral care/ Trach care rendered. Will continue to monitor.
[2018-12-22] MEDS: INSULIN REGULAR, HUMAN 300 UNIT/3 ML VIAL SQ PRN (23:56)
[2018-12-23 00:01] VITALS: BP 144/89
[2018-12-23] MEDS: hydrALAZINE HCL 50 MG TABLET GT SCH ×3 (00:23→21:34)
[2018-12-23 04:00] VITALS: BP 146/91
[2018-12-23] MEDS ORDERED: [UNRECOGNIZED DRUG - OTHER] IV PRN ×6 (04:00)
[2018-12-23] MEDS ORDERED: SODIUM CHLORIDE IV PRN ×12 (04:00→21:00)
[2018-12-23] MEDS ORDERED: SODIUM ACETATE IV PRN ×12 (04:00→21:00)
[2018-12-23] MEDS: DEXTROSE IV SCH ×3 (05:02→21:54)
[2018-12-23] MEDS: TRIMETHOPRI IV SCH ×3 (05:02→21:54)
[2018-12-23] MEDS: SULFAMETHOXAZOL IV SCH ×3 (05:02→21:54)
[2018-12-23] MEDS: BLOOD SUGAR DIAGNOSTIC 1 EACH STRIP VI SCH ×4 (05:07→23:46)
[2018-12-23 05:20] LABS: BASOPHILS # (AUTO) 0.1 K/uL (0.0-8.0); BASOPHILS % (AUTO) 1.1 % (0.0-2.0); EOSINOPHILS # (AUTO) 0.4 K/uL (0.0-0.7); EOSINOPHILS % (AUTO) 4.2 % (0.0-7.0); HEMATOCRIT 22.3 % (36.7-47.1); HEMOGLOBIN 7.8 g/dL (12.5-16.3); LYMPHOCYTES # (AUTO) 0.9 K/uL (20.0-40.0); MEAN CORPUSCULAR HEMOGLOBIN 29.5 uug (23.8-33.4); MEAN CORPUSCULAR HGB CONC 35 g/dL (32.5-36.3); MEAN CORPUSCULAR VOLUME 84.8 fL (73.0-96.2); MONOCYTES # (AUTO) 0.5 K/uL (2.0-10.0); MONOCYTES % (AUTO) 5.5 % (0.0-11.0); NEUTROPHILS # (AUTO) 7.1 K/uL (1.8-8.9); NEUTROPHILS % (AUTO) 79.2 % (38.5-71.5); PLATELET COUNT (AUTO) 517 K/uL (152-348); RED BLOOD CELL COUNT(AUTO) 2.63 MIL/uL (4.06-5.63)
[2018-12-23 05:25] LABS: BILIRUBIN,TOTAL 0.3 mg/dL (0.2-1.0); CREATININE 1.9 mg/dL (0.6-1.3); MAGNESIUM 1.6 mg/dL (1.8-2.4); PHOSPHOROUS 2.9 mg/dL (2.5-4.9); POTASSIUM 4.9 mmol/L (3.5-5.1); TOTAL PROTEIN, SERUM 6.5 g/dL (6.4-8.2)
--- NOTE | 2018-12-23 07:30 | NUR ---
report received from night cleaner nurse, patient admitted on 12/10/17 for ARF, UTI, Anemia. patient is quadriplegic, trach to vent,fio2 30%, ac 18, [id number] tv 400. is NPO. TPN infusing via CEFERINO PICC line at 70ml/hr and Intralipids at 10ml/hr. has galindo catheter.intact. ekg is sinus rhythm on contact isolation for MRSA abdominal wound. vitals wnl, patient appears to be comfortable at this time.
--- NOTE | 2018-12-23 07:30 | NUR ---
Pt received on continuous mechanical ventilation via Trach. Pt is on Merida ventilator with ordered settings of A/C-18, VT-400, PEEP+5, FIO2-30% Tolerating vent settings well. No signs or symptoms of respiratory distress noted. Trach is Portex 8, patent and secure. Sxn'd and lavaged as needed. Vent alarm parameters checked, on and audible. Trach care done. Vent plugged into emergency red outlet. Will continue to monitor Pt. - Pt moved to [facility] with no complications. Vent plugged into red emegency outlet. Bag/valve/mask and back up trach at bedside. Connected Pt to Continuous Pulse Oximeter.
[2018-12-23 08:00] VITALS: BP 143/82
[2018-12-23] MEDS: CHLORTHALIDONE 25 MG TABLET GT SCH (08:41)
[2018-12-23] MEDS: AMLODIPINE 5 MG TABLET GT SCH (08:41)
[2018-12-23] MEDS: SENNOSIDES 1 TABLET GT SCH ×3 (08:41→17:19)
[2018-12-23] MEDS: PANTOPRAZOLE SODIUM 40 MG VIAL IV SCH (08:51)
[2018-12-23] MEDS: HYDROMORPHONE 1 MG/1 ML DISP.SYRIN IV PRN ×2 (08:51→19:54)
[2018-12-23] MEDS: CHLORHEXIDINE GLUCONATE 15 ML MOUTHWASH MM SCH ×2 (08:51→17:20)
[2018-12-23] MEDS: SODIUM HYPOCHLORITE 0.125% 473 ML BOTTLE TP SCH (08:52)
[2018-12-23] MEDS: Z GUARD REMEDY PASTE 57 GM TUBE TOP SCH ×2 (08:53→20:50)
[2018-12-23] MEDS ORDERED: MAGNESIUM SULFATE/D5W 100 ML IV SCH (09:15)
--- NOTE | 2018-12-23 09:24 | NUR ---
[facility] PHARMACY NOTES (TPN per pharmacy) Subjective: 43 y/o male presented with fever and significant anemia, possible sepsis. pt was found to have malposition G-tube with abdominal abscess. PT had surgery for GT removal, incision of abdominal wall abscess and necrotic tissue. per wound care note, he has left buttock stage 2 PI. Since MD & surgeon anticipated more days without tube feeding, they decided to place pt on TPN until G-tube insertion possible.Per MD note, consider G tube once WBC trends down and cleared by ID. Foreclosure Specialist recommendation: Rec TPN goal: D10%, AA 4.25% @ 70ml/hr + IL 20% 250ml daily. At goal would provide 1357 kcal and 71gm protein Objective: Na 131, K 4.9, CL 101, CO2 20, BUN/SCR 37/1.9, CA 8.3 (corrected ca =9.9), MAG 1.6, PHOS 2.9, ALBUMIN 2.3 (12/18), GLUCOSE 98, TG 286 (12/16) Assessment/Plan: 1) TPN bag #14 (due on 12/23 at 2100) as D10% + AA 4.25% at a goal rate of 70 ml/hr, has 80 meq of Na acetate, 60 meq Nacl , Na phos 9 mmole, Mag sulfate 0.5 gm and bolused mag sulfate 1gm IVPB x1 today 2) will continue intralipids 20% 250ml over 24 hrs (re-order intralipids daily). Will monitor TG level periodically (TG level ordered for 12/24) 3)pt currently on accuck q6hr with regular insulin sliding scale 4) will order labs for am 5) Pt is on Bactrim IV in D5% 500 ml per dose (3 doses per 24hrs). changed to minimum dilution of 300ml. Will monitor Na & K level closely. will continue to monitor and adjust the electrolytes and TPN as the need arise.
[2018-12-23 12:00] VITALS: BP 132/83
--- NOTE | 2018-12-23 13:04 | NUR ---
Patient was seen by Dr. aRi, Dr. Shoemaker, and Dr. White. Patient resting comfortably in bed saturating 100% on barrios vent potex 8, peep 5, fio2 30%, tv 400. Urine clear and draining via galindo, tpn infusing at 70cc/hr lipids 10cc/hr, sinus rhythm 75 bp130/81. abdominal binder in place with abd pads over the two surgical incisions which are packed with kerlix soaked dakins.
--- NOTE | 2018-12-23 14:45 | NUR ---
SBAR REPORT RECEIVED,PT IN BED AWAKE, NONE VERBAL, NO S/S OF ACUTE DISTRESS.
[2018-12-23 15:12] VITALS: BP 132/82
[2018-12-23 20:00] VITALS: BP 118/69
--- NOTE | 2018-12-23 20:00 | NUR ---
RECEIVED PT OPENS HIS EYES TO VERBAL STIMULI. TRACH TO VENT W/ SETTINGS OF AC-18, TV-400, FIO2-30%, PEEP-+5 W/ O2 SAT OF 100%. ABD. DRSG INTACT W/ ABD. BINDER. TPN @ 70CC/HR VIA PICC LINE LINE ON CEFERINO. INTRALIPID @ 10CC/HR. NS @ TKO FOR IVPB MEDS. REPOSITIONED ON HIS R SIDE W/ HOB ELEVATED. AFEBRILE. SUCTIONED VIA TRACH W/ TANNISH THICK MINIMAL MUCOUS.
[2018-12-23] MEDS ORDERED: IV FAT EMULSIONS 20% 250 ML IV ONE (21:00)
[2018-12-23] MEDS ORDERED: [UNRECOGNIZED DRUG - OTHER] IV PRN ×6 (21:00)
--- NOTE | 2018-12-23 23:00 | NUR ---
HS CARE DONE. ORAL CARE DONE SUCTIONED.
[2018-12-23] MEDS: INSULIN REGULAR, HUMAN 300 UNIT/3 ML VIAL SQ PRN (23:48)
[2018-12-24] VITALS: BP 144/91
[2018-12-24] MEDS: IV NORMAL SALINE 250 ML IV PRN (00:01)
[2018-12-24] MEDS: LORAZEPAM 2 MG/1 ML VIAL IV PRN (00:07)
[2018-12-24 04:00] VITALS: BP 151/99
[2018-12-24] MEDS: hydrALAZINE HCL 50 MG TABLET GT SCH ×4 (06:00→19:59)
--- NOTE | 2018-12-24 06:00 | NUR ---
AM CARE DONE. ORAL CARE DONE REPOSITIONED ON HIS BACK W/ HOB ELEVATED.
[2018-12-24] MEDS: SULFAMETHOXAZOL IV SCH ×3 (06:07→21:30)
[2018-12-24] MEDS: DEXTROSE IV SCH ×3 (06:07→21:30)
[2018-12-24] MEDS: TRIMETHOPRI IV SCH ×3 (06:07→21:30)
[2018-12-24] MEDS: BLOOD SUGAR DIAGNOSTIC 1 EACH STRIP VI SCH ×4 (06:13→23:52)
[2018-12-24 06:31] LABS: HEMATOCRIT 22.9 % (36.7-47.1); HEMOGLOBIN 7.8 g/dL (12.5-16.3); LYMPHOCYTES % (AUTO) 9.1 % (20.5-51.5); MEAN CORPUSCULAR HEMOGLOBIN 29.5 uug (23.8-33.4); MEAN CORPUSCULAR HGB CONC 34 g/dL (32.5-36.3); MEAN CORPUSCULAR VOLUME 86.2 fL (73.0-96.2); MONOCYTES % (AUTO) 5.1 % (0.0-11.0); NEUTROPHILS % (AUTO) 80.9 % (38.5-71.5); PLATELET COUNT (AUTO) 513 K/uL (152-348); RED BLOOD CELL COUNT(AUTO) 2.65 MIL/uL (4.06-5.63); WHITE BLOOD COUNT (AUTO) 8.4 K/uL (3.6-10.2)
[2018-12-24 06:32] LABS: BASOPHILS # (AUTO) 0.1 K/uL (0.0-8.0); BASOPHILS % (AUTO) 1.1 % (0.0-2.0); EOSINOPHILS # (AUTO) 0.3 K/uL (0.0-0.7); EOSINOPHILS % (AUTO) 3.8 % (0.0-7.0); LYMPHOCYTES # (AUTO) 0.8 K/uL (20.0-40.0); MONOCYTES # (AUTO) 0.4 K/uL (2.0-10.0); NEUTROPHILS # (AUTO) 6.8 K/uL (1.8-8.9)
[2018-12-24 06:42] LABS: CREATININE 1.8 mg/dL (0.6-1.3); MAGNESIUM 1.9 mg/dL (1.8-2.4); PHOSPHOROUS 3.2 mg/dL (2.5-4.9); POTASSIUM 4.5 mmol/L (3.5-5.1)
--- NOTE | 2018-12-24 07:20 | NUR ---
Report received from fork lift truck operator nurse, patient admitted on 12/10/17 for ARF, UTI, Anemia. patient is quadriplegic, trach to vent,fio2 30%, ac 18, [id number] tv 400. is NPO. TPN infusing via CEFERINO PICC line at 70ml/hr and Intralipids at 10ml/hr. has galindo catheter.intact. Telemetry is sinus rhythm on contact isolation for MRSA abdominal wound. vitals wnl, patient appears to be comfortable at this time.
[2018-12-24 08:00] VITALS: BP 155/93
[2018-12-24] MEDS: CHLORTHALIDONE 25 MG TABLET GT SCH (09:00)
[2018-12-24] MEDS: AMLODIPINE 5 MG TABLET GT SCH (09:00)
[2018-12-24] MEDS: SENNOSIDES 1 TABLET GT SCH ×2 (09:00→17:00)
[2018-12-24] MEDS: CHLORHEXIDINE GLUCONATE 15 ML MOUTHWASH MM SCH ×2 (09:50→17:00)
[2018-12-24] MEDS: HYDROMORPHONE 1 MG/1 ML DISP.SYRIN IV PRN ×2 (09:50→20:24)
[2018-12-24] MEDS: PANTOPRAZOLE SODIUM 40 MG VIAL IV SCH (09:50)
[2018-12-24] MEDS: Z GUARD REMEDY PASTE 57 GM TUBE TOP SCH ×2 (09:51→20:28)
[2018-12-24] MEDS: SODIUM HYPOCHLORITE 0.125% 473 ML BOTTLE TP SCH (09:51)
[2018-12-24 11:33] VITALS: BP 137/82
[2018-12-24] MEDS ORDERED: SODIUM CHLORIDE IV PRN ×8 (14:00)
[2018-12-24] MEDS ORDERED: [UNRECOGNIZED DRUG - OTHER] IV PRN ×8 (14:00)
[2018-12-24] MEDS ORDERED: SODIUM ACETATE IV PRN ×8 (14:00)
--- NOTE | 2018-12-24 15:00 | NUR ---
[facility] PHARMACY NOTES (TPN per pharmacy) Subjective: 43 y/o male presented with fever and significant anemia, possible sepsis. pt was found to have malposition G-tube with abdominal abscess. PT had surgery for GT removal, incision of abdominal wall abscess and necrotic tissue. per wound care note, he has left buttock stage 2 PI. Since MD & surgeon anticipated more days without tube feeding, they decided to place pt on TPN until G-tube insertion possible. Per MD note, consider G tube once WBC trends down and cleared by ID. Maturity Checker recommendation: Rec TPN goal: D10%, AA 4.25% @ 70ml/hr + IL 20% 250ml daily. At goal would provide 1357 kcal and 71gm protein Objective: Na 132, K 4.5, CL 100, CO2 19, BUN/SCR 33/1.8, CA 8.5 (corrected 9.94), MAG 1.9, PHOS 3.2, ALBUMIN 2.3 (12/18), GLUCOSE 107, TG 216 Assessment/Plan: 1) TPN bag #16 (due on 12/24 at 1400) as D10% + AA 4.25% at a goal rate of 70 ml/hr, has 100 meq of Na acetate, 60 meq Nacl , Na phos 6 meq, Mag sulfate 0.5 gm, MVI 1 vial(10ml) and Trace elements 1 vial (1ml) TPN bag #17(due 12/25 at 0400) as D 10% + AA 4.25% at 70ml/hr, has 100meq Na acetate, 60meq Nacl, Mag sulfate 0.5g. 2) will continue intralipids 20% 250ml over 24 hrs (re-order intralipids daily). Will monitor TG level periodically . 3)pt currently on accuck q6hr with regular insulin sliding scale 4) will order labs for am 5) Pt is on Bactrim IV in D5% 300 ml per dose (3 doses per 24hrs). Will monitor Na & K level closely. will continue to monitor and adjust the electrolytes and TPN as the need arise.
--- NOTE | 2018-12-24 15:38 | NUR ---
PT REMAINS ON MECHANICAL VENTILATION, TOLERATING VENT SETTINGS FAIRLY WELL. NO S/S OF RESPIRATORY DISTRESS NOTED. PORTEX TRACH IS PATENT AND SECURED WITH TIES. BACK UP TRACH AND BVM AT BEDSIDE. WILL CONTINUE TO MONITOR.
[2018-12-24 16:00] VITALS: BP 158/92
--- NOTE | 2018-12-24 18:59 | NUR ---
Patient was seen by Dr. Shoemaker, and Kee. Patient resting comfortably in bed saturating 100% on barrios vent potex 8, peep 5, fio2 30%, tv 400. Urine clear and draining via galindo, tpn infusing at 70cc/hr lipids 10cc/hr, sinus rhythm. Abdominal binder in place with abd pads over the two surgical incisions which are packed with kerlix soaked dakins (dressing changed by this marketing writer, and to be continued by nursing daily). Inner cannula and necktie changed, all needs met. Patient has some mild bleeding on lip from continual biting. Frequent oral care and suction performed, and patient repositioned q2hr. All needs met at this time.
[2018-12-24] MEDS: hydrALAZINE HCL 20 MG/1 ML VIAL IV PRN (19:54)
[2018-12-24 20:23] VITALS: BP 205/103
[2018-12-24] MEDS ORDERED: IV FAT EMULSIONS 20% 250 ML IV ONE (21:00)
[2018-12-24] MEDS: INSULIN REGULAR, HUMAN 300 UNIT/3 ML VIAL SQ PRN (23:53)
[2018-12-24] MEDS: Z GUARD REMEDY PASTE 57 GM TUBE TOP PRN (23:54)
--- NOTE | 2018-12-25 00:15 | NUR ---
received report fr Nurse Beni; assumed care; agreed with previous assessment; accucheck done and covered per sliding scale; repositioned.
[2018-12-25 02:00] VITALS: BP 140/90
[2018-12-25] MEDS ORDERED: SODIUM CHLORIDE IV PRN ×12 (04:00→18:30)
[2018-12-25] MEDS ORDERED: [UNRECOGNIZED DRUG - OTHER] IV PRN ×5 (04:00)
[2018-12-25] MEDS ORDERED: SODIUM ACETATE IV PRN ×12 (04:00→18:30)
[2018-12-25 04:05] VITALS: BP 150/89
[2018-12-25] MEDS: SULFAMETHOXAZOL IV SCH ×3 (05:15→21:24)
[2018-12-25] MEDS: TRIMETHOPRI IV SCH ×3 (05:15→21:24)
[2018-12-25] MEDS: DEXTROSE IV SCH ×3 (05:15→21:24)
[2018-12-25] MEDS: BLOOD SUGAR DIAGNOSTIC 1 EACH STRIP VI SCH ×3 (05:20→17:10)
[2018-12-25 05:32] LABS: BASOPHILS # (AUTO) 0.1 K/uL (0.0-8.0); BASOPHILS % (AUTO) 2.2 % (0.0-2.0); EOSINOPHILS # (AUTO) 0.3 K/uL (0.0-0.7); HEMATOCRIT 23.8 % (36.7-47.1); HEMOGLOBIN 7.9 g/dL (12.5-16.3); LYMPHOCYTES # (AUTO) 0.7 K/uL (20.0-40.0); LYMPHOCYTES % (AUTO) 10.4 % (20.5-51.5); MEAN CORPUSCULAR HEMOGLOBIN 27.9 uug (23.8-33.4); MEAN CORPUSCULAR HGB CONC 33 g/dL (32.5-36.3); MEAN CORPUSCULAR VOLUME 83.8 fL (73.0-96.2); MONOCYTES # (AUTO) 0.5 K/uL (2.0-10.0); MONOCYTES % (AUTO) 7.5 % (0.0-11.0); NEUTROPHILS % (AUTO) 74.9 % (38.5-71.5); PLATELET COUNT (AUTO) 501 K/uL (152-348); RED BLOOD CELL COUNT(AUTO) 2.84 MIL/uL (4.06-5.63); WHITE BLOOD COUNT (AUTO) 6.7 K/uL (3.6-10.2)
[2018-12-25 05:44] LABS: CREATININE 1.6 mg/dL (0.6-1.3); MAGNESIUM 1.6 mg/dL (1.8-2.4); PHOSPHOROUS 3.2 mg/dL (2.5-4.9); POTASSIUM 4.1 mmol/L (3.5-5.1)
--- NOTE | 2018-12-25 06:30 | NUR ---
transferred back to CCU bed 1 as MARLO overflow; AM care done; suctioned orally ans tracheally; trache care done; repositioned q2h; safety maintained; VSS. continue to monitor; continue plan of care.
--- NOTE | 2018-12-25 07:15 | NUR ---
Received report from bacon slicer nurse, patient in bed squirming and appears to be restless. Patient is on barrios vent portex 8, fio2 30%, peep 5, TV 400. Patients galindo is draining, air mattress inflated and on continuous monitor. Will continue to monitor.
[2018-12-25 08:00] VITALS: BP 144/90
[2018-12-25] MEDS: PANTOPRAZOLE SODIUM 40 MG VIAL IV SCH (08:08)
[2018-12-25] MEDS: CHLORHEXIDINE GLUCONATE 15 ML MOUTHWASH MM SCH ×2 (08:08→17:04)
[2018-12-25] MEDS: LORAZEPAM 2 MG/1 ML VIAL IV PRN (08:08)
[2018-12-25] MEDS: CHLORTHALIDONE 25 MG TABLET GT SCH (08:09)
[2018-12-25] MEDS: AMLODIPINE 5 MG TABLET GT SCH (08:09)
[2018-12-25] MEDS: SENNOSIDES 1 TABLET GT SCH ×2 (08:09→17:00)
[2018-12-25] MEDS: Z GUARD REMEDY PASTE 57 GM TUBE TOP SCH ×2 (08:10→21:24)
[2018-12-25] MEDS: SODIUM HYPOCHLORITE 0.125% 473 ML BOTTLE TP SCH (08:10)
[2018-12-25] MEDS ORDERED: MAGNESIUM SULFATE/D5W 100 ML IV SCH (09:15)
--- NOTE | 2018-12-25 09:41 | NUR ---
Discussed Gtube insertion with Dr. Arias. Dr. Arias reports patient is not ready for gtube but will re-evaluate today or tomorrow.
--- NOTE | 2018-12-25 11:30 | NUR ---
Patient seen by Klaus Shoemaker.
--- NOTE | 2018-12-25 11:48 | NUR ---
[facility] PHARMACY NOTES (TPN per pharmacy) Subjective: 43 y/o male presented with fever and significant anemia, possible sepsis. pt was found to have malposition G-tube with abdominal abscess. PT had surgery for GT removal, incision of abdominal wall abscess and necrotic tissue. per wound care note, he has left buttock stage 2 PI. Since MD & surgeon anticipated more days without tube feeding, they decided to place pt on TPN until G-tube insertion possible. Per MD note, consider G tube once WBC trends down and cleared by ID. Employee Communications Specialist recommendation: Rec TPN goal: D10%, AA 4.25% @ 70ml/hr + IL 20% 250ml daily. At goal would provide 1357 kcal and 71gm protein Objective: Na 133, K 4.1, CL 100, CO2 23, BUN/SCR 28/1.6, CA 8.4 (corrected 9.76), MAG 1.6, PHOS 3.2, ALBUMIN 2.3 (12/18), GLUCOSE 98, TG 216 (12/24) Assessment/Plan: 1) TPN bag #18 (due on 12/25 at 1830) as D10% + AA 4.25% at a goal rate of 70 ml/hr, has 100 meq of Na acetate, 60 meq Nacl, Mag sulfate 0.5 gm, MVI 1 vial(10ml) and Trace elements 1 vial (1ml). Bolused Mag sulfate 1 gm IVPB x1 today. TPN bag #19(due 12/26 at 0900) as D 10% + AA 4.25% at 70ml/hr, has 100meq Na acetate, 60meq Nacl, Mag sulfate 0.5g. 2) will continue intralipids 20% 250ml over 24 hrs (re-order intralipids daily). Will monitor TG level periodically . 3)pt currently on accuck q6hr with regular insulin sliding scale 4) will order labs for am 5) Pt is on Bactrim IV in D5% 300 ml per dose (3 doses per 24hrs). Will monitor Na & K level closely. will continue to monitor and adjust the electrolytes and TPN as the need arise.
[2018-12-25 12:00] VITALS: BP 138/82
--- NOTE | 2018-12-25 12:00 | NUR ---
Patient seen by Dr. Grubbs, and ID NAVAL SURFACE FIRE SUPPORT PLANNER Margie.
[2018-12-25] MEDS: hydrALAZINE HCL 50 MG TABLET GT SCH ×2 (13:27→21:25)
--- NOTE | 2018-12-25 15:15 | NUR ---
pt remain stable on current settings and no changes is made or ordered.
[2018-12-25 16:00] VITALS: BP 132/80
[2018-12-25] MEDS: INSULIN REGULAR, HUMAN 300 UNIT/3 ML VIAL SQ PRN (17:12)
[2018-12-25] MEDS ORDERED: [UNRECOGNIZED DRUG - OTHER] IV PRN ×7 (18:30)
--- NOTE | 2018-12-25 19:39 | NUR ---
Patient was seen by Dr. Shoemaker. Patient resting comfortably in bed saturating 100% on barrios vent potex 8, peep 5, fio2 30%, tv 400. Urine clear and draining via galindo, tpn infusing at 70cc/hr lipids 11cc/hr, sinus rhythm. Abdominal binder in place with abd pads over the two surgical incisions which are packed with kerlix soaked dakins (dressing changed by this senior copywriter, and to be continued by nursing daily). Inner cannula and necktie changed, all needs met. Patient has some mild bleeding on lip from continual biting. Frequent oral care and suction performed, and patient repositioned q2hr. All needs met at this time.
[2018-12-25 20:00] VITALS: BP 154/95
[2018-12-25] MEDS: HYDROMORPHONE 1 MG/1 ML DISP.SYRIN IV PRN (20:01)
[2018-12-25] MEDS ORDERED: IV FAT EMULSIONS 20% 250 ML IV ONE (21:00)
[2018-12-26 00:01] VITALS: BP 148/92
[2018-12-26] MEDS: BLOOD SUGAR DIAGNOSTIC 1 EACH STRIP VI SCH ×4 (00:45→17:57)
[2018-12-26] MEDS: INSULIN REGULAR, HUMAN 300 UNIT/3 ML VIAL SQ PRN ×2 (01:18→17:58)
[2018-12-26 04:00] VITALS: BP 146/91
[2018-12-26 04:59] LABS: BASOPHILS # (AUTO) 0.2 K/uL (0.0-8.0); BASOPHILS % (AUTO) 3.2 % (0.0-2.0); EOSINOPHILS # (AUTO) 0.3 K/uL (0.0-0.7); EOSINOPHILS % (AUTO) 6.1 % (0.0-7.0); HEMATOCRIT 22.9 % (36.7-47.1); HEMOGLOBIN 7.7 g/dL (12.5-16.3); LYMPHOCYTES # (AUTO) 0.7 K/uL (20.0-40.0); LYMPHOCYTES % (AUTO) 15.6 % (20.5-51.5); MEAN CORPUSCULAR HEMOGLOBIN 28.3 uug (23.8-33.4); MEAN CORPUSCULAR HGB CONC 34 g/dL (32.5-36.3); MONOCYTES # (AUTO) 0.5 K/uL (2.0-10.0); MONOCYTES % (AUTO) 10.8 % (0.0-11.0); NEUTROPHILS # (AUTO) 3.1 K/uL (1.8-8.9); NEUTROPHILS % (AUTO) 64.3 % (38.5-71.5); PLATELET COUNT (AUTO) 518 K/uL (152-348); RED BLOOD CELL COUNT(AUTO) 2.73 MIL/uL (4.06-5.63); WHITE BLOOD COUNT (AUTO) 4.8 K/uL (3.6-10.2)
[2018-12-26 05:10] LABS: CREATININE 1.6 mg/dL (0.6-1.3); MAGNESIUM 1.8 mg/dL (1.8-2.4); PHOSPHOROUS 3.1 mg/dL (2.5-4.9); POTASSIUM 3.9 mmol/L (3.5-5.1)
[2018-12-26] MEDS: hydrALAZINE HCL 50 MG TABLET GT SCH ×3 (05:15→21:55)
[2018-12-26] MEDS: TRIMETHOPRI IV SCH ×3 (05:46→21:52)
[2018-12-26] MEDS: SULFAMETHOXAZOL IV SCH ×3 (05:46→21:52)
[2018-12-26] MEDS: DEXTROSE IV SCH ×3 (05:46→21:52)
[2018-12-26] MEDS: HYDROMORPHONE 1 MG/1 ML DISP.SYRIN IV PRN ×2 (06:20→16:21)
[2018-12-26] MEDS: SENNOSIDES 1 TABLET GT SCH ×2 (07:50→16:21)
[2018-12-26] MEDS: CHLORTHALIDONE 25 MG TABLET GT SCH (07:50)
[2018-12-26] MEDS: AMLODIPINE 5 MG TABLET GT SCH (07:50)
--- NOTE | 2018-12-26 07:56 | NUR ---
RT PT RECEIVED ON GALINDO VENT WITH SETTINGS OF AC18 400 PEEP +5 30%. PT TRACH CARE WAS DONE. PT TRACH SIZE PORTEX 8 . PT SUCTION NO DISTRESS NOTED CUFF CHECKED WITH ROCKET MOTOR MECHANIC. PT AMBU BAG AND BACK UP TRACH AT BED SIDE. PT ALARMS ON AND AUDIBLE WILL CONTINUE TO MONITOR PT.
[2018-12-26 08:00] VITALS: BP 145/87
[2018-12-26] MEDS: Z GUARD REMEDY PASTE 57 GM TUBE TOP SCH ×2 (08:06→21:53)
[2018-12-26] MEDS: CHLORHEXIDINE GLUCONATE 15 ML MOUTHWASH MM SCH ×2 (08:06→16:31)
[2018-12-26] MEDS: SODIUM HYPOCHLORITE 0.125% 473 ML BOTTLE TP SCH (08:07)
[2018-12-26] MEDS: PANTOPRAZOLE SODIUM 40 MG VIAL IV SCH ×2 (08:08→08:11)
[2018-12-26] MEDS: hydrALAZINE HCL 20 MG/1 ML VIAL IV PRN (08:11)
[2018-12-26] MEDS ORDERED: [UNRECOGNIZED DRUG - OTHER] IV PRN ×5 (09:00)
[2018-12-26] MEDS ORDERED: SODIUM CHLORIDE IV PRN ×12 (09:00→14:00)
[2018-12-26] MEDS ORDERED: SODIUM ACETATE IV PRN ×12 (09:00→14:00)
[2018-12-26] MEDS: NYSTATIN POWDER 15 GM BOTTLE TOP SCH ×2 (10:09→21:55)
[2018-12-26 12:00] VITALS: BP 145/85
--- NOTE | 2018-12-26 12:18 | NUR ---
GREEN PRIZE PACKER Klaus Shoemaker here to see pt. Full report given. New orders received.
--- NOTE | 2018-12-26 13:05 | NUR ---
CLINICAL PHARMACY NOTES (TPN per pharmacy) Subjective: 43 y/o male presented with fever and significant anemia, possible sepsis. pt was found to have malposition G-tube with abdominal abscess. PT had surgery for GT removal, incision of abdominal wall abscess and necrotic tissue. per wound care note, he has left buttock stage 2 PI. Since MD & surgeon anticipated more days without tube feeding, they decided to place pt on TPN until G-tube insertion possible. Per MD note, consider G tube once WBC trends down and cleared by ID. Testing Director recommendation: Rec TPN goal: D10%, AA 4.25% @ 70ml/hr + IL 20% 250ml daily. At goal would provide 1357 kcal and 71gm protein Objective: Na 132, K 3.9, CL 98, CO2 28, BUN/SCR 26/1.6, CA 8.2 (corrected 9.64), MAG 1.8, PHOS 3.1, ALBUMIN 2.2 (12/23), GLUCOSE 110, TG 216 (12/24) Assessment/Plan: 1) TPN bag #20 (due on 12/26 at 1400, TPN bag#19 being cancelled) as D10% + AA 4.25% at a goal rate of 70 ml/hr, has 100 meq of Na acetate, 80 meq Nacl, Mag sulfate 0.5 gm, MVI 1 vial(10ml) and Trace elements 1 vial (1ml). TPN bag #21(due on 12/27 at 0400) as D 10% + AA 4.25% at 70ml/hr, has 100meq Na acetate, 80meq Nacl, Mag sulfate 0.5g. 2) will continue intralipids 20% 250ml over 24 hrs (re-order intralipids daily). Will monitor TG level periodically . 3)pt currently on accuck q6hr with regular insulin sliding scale 4) will order labs for am 5) Pt is on Bactrim IV in D5% 300 ml per dose (3 doses per 24hrs). Will monitor Na & K level closely. will continue to monitor and adjust the electrolytes and TPN as the need arise.
[2018-12-26] MEDS ORDERED: [UNRECOGNIZED DRUG - OTHER] IV PRN ×7 (14:00)
--- NOTE | 2018-12-26 14:36 | NUR ---
Dr. Arias (GI) here at the bedside. Full report given. No new orders received. Pt to have PEG placement on Friday per MD.
[2018-12-26 16:00] VITALS: BP 148/86
--- NOTE | 2018-12-26 19:15 | NUR ---
Received report from off going RN Patient presently resting quietly no noted agitation. remains on contact isolation for MRSA in abd wound. Nunn to gravity with TPN and lipids infusing portex trached to vent tolerating well.
[2018-12-26 20:00] VITALS: BP 148/90
--- NOTE | 2018-12-26 20:00 | NUR ---
PT RECEIVED ON CONTINUOUS VENT AC 18 VT 400 PEEP 5 FIO2 30%. TRACH IN PLACED AND SECURED WITH TRACH TIE. BACK UP TRACH AND AMBU BAG AT BEDSIDE. TRACH CARE DONE WITHOUT COMPLICATIONS NOTED. SUCTION PRN. VENT CHECKED, ALARMS WORKING WELL AND AUDIBLE. NO DISTRESS NOTED AT THIS TIME. WILL CONTINUE TO MONITOR.
[2018-12-26] MEDS ORDERED: IV FAT EMULSIONS 20% 250 ML IV ONE (21:00)
--- NOTE | 2018-12-26 21:57 | NUR ---
Received report from YESSENIA Cardoza for cotinue care of this patient.
[2018-12-26] MEDS: LORAZEPAM 2 MG/1 ML VIAL IV PRN (22:10)
[2018-12-27] VITALS: BP 136/86
[2018-12-27] MEDS: BLOOD SUGAR DIAGNOSTIC 1 EACH STRIP VI SCH ×5 (00:13→23:42)
[2018-12-27] MEDS: INSULIN REGULAR, HUMAN 300 UNIT/3 ML VIAL SQ PRN ×3 (00:21→23:45)
[2018-12-27] MEDS: HYDROMORPHONE 1 MG/1 ML DISP.SYRIN IV PRN (03:14)
[2018-12-27] MEDS: METOPROLOL TARTRATE 5 MG/5 ML VIAL IVP PRN (03:14)
[2018-12-27 04:00] VITALS: BP 146/92
[2018-12-27] MEDS ORDERED: [UNRECOGNIZED DRUG - OTHER] IV PRN ×5 (04:00)
[2018-12-27] MEDS ORDERED: SODIUM ACETATE IV PRN ×12 (04:00→18:30)
[2018-12-27] MEDS ORDERED: SODIUM CHLORIDE IV PRN ×12 (04:00→18:30)
[2018-12-27 05:13] LABS: CREATININE 1.5 mg/dL (0.6-1.3); MAGNESIUM 1.5 mg/dL (1.8-2.4); PHOSPHOROUS 3.4 mg/dL (2.5-4.9)
[2018-12-27 05:15] LABS: BASOPHILS # (AUTO) 0.1 K/uL (0.0-8.0); BASOPHILS % (AUTO) 2.6 % (0.0-2.0); EOSINOPHILS # (AUTO) 0.3 K/uL (0.0-0.7); EOSINOPHILS % (AUTO) 4.9 % (0.0-7.0); HEMATOCRIT 21.6 % (36.7-47.1); HEMOGLOBIN 7.5 g/dL (12.5-16.3); LYMPHOCYTES # (AUTO) 0.6 K/uL (20.0-40.0); LYMPHOCYTES % (AUTO) 11.6 % (20.5-51.5); MEAN CORPUSCULAR HEMOGLOBIN 29.2 uug (23.8-33.4); MEAN CORPUSCULAR HGB CONC 35 g/dL (32.5-36.3); MEAN CORPUSCULAR VOLUME 83.7 fL (73.0-96.2); MONOCYTES # (AUTO) 0.5 K/uL (2.0-10.0); MONOCYTES % (AUTO) 9.2 % (0.0-11.0); NEUTROPHILS # (AUTO) 3.9 K/uL (1.8-8.9); NEUTROPHILS % (AUTO) 71.7 % (38.5-71.5); PLATELET COUNT (AUTO) 489 K/uL (152-348); RED BLOOD CELL COUNT(AUTO) 2.58 MIL/uL (4.06-5.63); WHITE BLOOD COUNT (AUTO) 5.4 K/uL (3.6-10.2)
[2018-12-27] MEDS: hydrALAZINE HCL 50 MG TABLET GT SCH ×4 (06:00→20:37)
[2018-12-27] MEDS: TRIMETHOPRI IV SCH ×3 (06:32→22:48)
[2018-12-27] MEDS: SULFAMETHOXAZOL IV SCH ×3 (06:32→22:48)
[2018-12-27] MEDS: DEXTROSE IV SCH ×3 (06:32→22:48)
[2018-12-27 06:50] LABS: BAND % (MANUAL) 3 % (0-10); EOSINOPHILS % (MANUAL) 4 % (0-8); LYMPHOCYTES % (MANUAL) 13 % (20-40); MONOCYTES % (MANUAL) 9 % (2-10); MYELOCYTES % 3 % (0-0); NEUTROPHILS % (MANUAL) 68 % (42-75)
--- NOTE | 2018-12-27 07:27 | NUR ---
PT RECEIVED TRACH TO VENT WITH SETTINGS AC18/VT400/30%/5 PEEP. PORTEX 8 CUFFED TRACH SECURED AND INTACT. AIRWAY PATENT. PT COMFORTABLE TOLERATING CURRENT VENT SETTINGS FINE WITH NO DISTRESS.
[2018-12-27] MEDS: CHLORTHALIDONE 25 MG TABLET GT SCH (07:53)
[2018-12-27] MEDS: SENNOSIDES 1 TABLET GT SCH ×2 (07:54→16:33)
[2018-12-27] MEDS: AMLODIPINE 5 MG TABLET GT SCH (07:54)
[2018-12-27] MEDS: PANTOPRAZOLE SODIUM 40 MG VIAL IV SCH (07:58)
[2018-12-27] MEDS: Z GUARD REMEDY PASTE 57 GM TUBE TOP SCH ×2 (07:58→20:39)
[2018-12-27] MEDS: NYSTATIN POWDER 15 GM BOTTLE TOP SCH ×2 (07:59→20:41)
[2018-12-27] MEDS: CHLORHEXIDINE GLUCONATE 15 ML MOUTHWASH MM SCH ×2 (07:59→17:00)
[2018-12-27] MEDS: SODIUM HYPOCHLORITE 0.125% 473 ML BOTTLE TP SCH (07:59)
[2018-12-27 08:00] VITALS: BP 151/91
[2018-12-27] MEDS ORDERED: MAGNESIUM SULFATE/D5W 100 ML IV SCH (08:00)
--- NOTE | 2018-12-27 10:15 | NUR ---
CLINICAL PHARMACY NOTES (TPN per pharmacy) Subjective: 43 y/o male presented with fever and significant anemia, possible sepsis. pt was found to have malposition G-tube with abdominal abscess. PT had surgery for GT removal, incision of abdominal wall abscess and necrotic tissue. per wound care note, he has left buttock stage 2 PI. Since MD & surgeon anticipated more days without tube feeding, they decided to place pt on TPN until G-tube insertion possible. Per MD note, consider G tube once WBC trends down and cleared by ID. Tool And Die Manager recommendation: Rec TPN goal: D10%, AA 4.25% @ 70ml/hr + IL 20% 250ml daily. At goal would provide 1357 kcal and 71gm protein Objective: Na 134, K 4.0, CL 100, CO2 27, BUN/SCR 24/1.5, CA 7.9 (corrected 9.34), MAG 1.5, PHOS 3.4, ALBUMIN 2.2 (12/23), GLUCOSE 121, TG 216 (12/24) Assessment/Plan: 1) TPN bag #22 (due on 12/27 at 1830) as D10% + AA 4.25% at a goal rate of 70 ml/hr, has 100 meq of Na acetate, 80 meq Nacl, Mag sulfate 0.5 gm, MVI 1 vial(10ml) and Trace elements 1 vial (1ml). Also, Mag sultfate 1 gm IVPB x1 for Mag level 1.5 was given this am 2) will continue intralipids 20% 250ml over 24 hrs (re-order intralipids daily). Will monitor TG level periodically . 3)pt currently on accuck q6hr with regular insulin sliding scale 4) will order labs for am 5) Pt is on Bactrim IV in D5% 300 ml per dose (3 doses per 24hrs). Will monitor Na & K level closely. will continue to monitor and adjust the electrolytes and TPN as the need arise.
[2018-12-27] MEDS: CLONIDINE-TTS 1 PATCH TD SCH (10:48)
[2018-12-27 12:00] VITALS: BP 140/87
[2018-12-27 16:00] VITALS: BP 156/90
[2018-12-27] MEDS: hydrALAZINE HCL 20 MG/1 ML VIAL IV PRN ×2 (16:35→23:08)
[2018-12-27] MEDS ORDERED: [UNRECOGNIZED DRUG - OTHER] IV PRN ×7 (18:30)
--- NOTE | 2018-12-27 19:40 | NUR ---
Pt received on continuous mechanical ventilation via Trach. Pt is on Merida ventilator with ordered settings of A/C-18, VT-400, PEEP+5, FIO2-30% Tolerating vent settings well. No signs or symptoms of respiratory distress noted. Trach is Portex 8, patent and secure. Sxn'd and lavaged as needed. Vent alarm parameters checked, on and audible. Trach care done. Vent plugged into emergency red outlet. Will continue to monitor Pt.
[2018-12-27 20:00] VITALS: BP 154/86
[2018-12-27] MEDS ORDERED: IV FAT EMULSIONS 20% 250 ML IV ONE (21:00)
[2018-12-28] VITALS (10 sets, daily range): BP systolic 135–164; BP diastolic 80–102
[2018-12-28 04:57] LABS: BASOPHILS # (AUTO) 0.1 K/uL (0.0-8.0); EOSINOPHILS # (AUTO) 0.2 K/uL (0.0-0.7); EOSINOPHILS % (AUTO) 2.9 % (0.0-7.0); HEMATOCRIT 22.7 % (36.7-47.1); HEMOGLOBIN 7.8 g/dL (12.5-16.3); LYMPHOCYTES # (AUTO) 0.6 K/uL (20.0-40.0); LYMPHOCYTES % (AUTO) 9.3 % (20.5-51.5); MEAN CORPUSCULAR HEMOGLOBIN 28.8 uug (23.8-33.4); MEAN CORPUSCULAR HGB CONC 35 g/dL (32.5-36.3); MEAN CORPUSCULAR VOLUME 83.6 fL (73.0-96.2); MONOCYTES # (AUTO) 0.5 K/uL (2.0-10.0); MONOCYTES % (AUTO) 7.7 % (0.0-11.0); NEUTROPHILS # (AUTO) 5.2 K/uL (1.8-8.9); NEUTROPHILS % (AUTO) 79.1 % (38.5-71.5); PLATELET COUNT (AUTO) 468 K/uL (152-348); RED BLOOD CELL COUNT(AUTO) 2.72 MIL/uL (4.06-5.63); WHITE BLOOD COUNT (AUTO) 6.6 K/uL (3.6-10.2)
[2018-12-28] MEDS: SULFAMETHOXAZOL IV SCH ×3 (05:12→21:44)
[2018-12-28] MEDS: TRIMETHOPRI IV SCH ×3 (05:12→21:44)
[2018-12-28] MEDS: IV NORMAL SALINE 250 ML IV PRN (05:12)
[2018-12-28] MEDS: DEXTROSE IV SCH ×3 (05:12→21:44)
[2018-12-28 05:44] LABS: CREATININE 1.4 mg/dL (0.6-1.3); MAGNESIUM 1.8 mg/dL (1.8-2.4); PHOSPHOROUS 3.1 mg/dL (2.5-4.9); POTASSIUM 3.6 mmol/L (3.5-5.1)
[2018-12-28] MEDS: BLOOD SUGAR DIAGNOSTIC 1 EACH STRIP VI SCH ×4 (06:38→23:29)
[2018-12-28] MEDS: INSULIN REGULAR, HUMAN 300 UNIT/3 ML VIAL SQ PRN ×2 (06:39→23:33)
[2018-12-28] MEDS: PANTOPRAZOLE SODIUM 40 MG VIAL IV SCH (08:53)
[2018-12-28] MEDS: HYDROMORPHONE 1 MG/1 ML DISP.SYRIN IV PRN ×2 (08:54→16:14)
[2018-12-28] MEDS: hydrALAZINE HCL 20 MG/1 ML VIAL IV PRN (08:55)
[2018-12-28] MEDS ORDERED: SODIUM ACETATE IV PRN ×12 (09:00→23:00)
[2018-12-28] MEDS ORDERED: SODIUM CHLORIDE IV PRN ×12 (09:00→23:00)
[2018-12-28] MEDS: SENNOSIDES 1 TABLET GT SCH ×2 (09:00→17:25)
[2018-12-28] MEDS: AMLODIPINE 5 MG TABLET GT SCH (09:00)
[2018-12-28] MEDS ORDERED: [UNRECOGNIZED DRUG - OTHER] IV PRN ×5 (09:00)
[2018-12-28] MEDS: CHLORTHALIDONE 25 MG TABLET GT SCH (09:00)
--- NOTE | 2018-12-28 09:07 | NUR ---
medicated for abdominal pain , unable to scale Addendum: 12/28/18 at 0908 by LINUS SALGUERO RN Amended: Links added.
--- NOTE | 2018-12-28 09:12 | NUR ---
medicated for blood pressure 164/100 Addendum: 12/28/18 at 0913 by LINUS SALGUERO RN Amended: Links added.
[2018-12-28] MEDS: CHLORHEXIDINE GLUCONATE 15 ML MOUTHWASH MM SCH ×2 (09:44→17:25)
[2018-12-28] MEDS: SODIUM HYPOCHLORITE 0.125% 473 ML BOTTLE TP SCH (09:45)
[2018-12-28] MEDS: NYSTATIN POWDER 15 GM BOTTLE TOP SCH ×2 (09:45→20:56)
[2018-12-28] MEDS: Z GUARD REMEDY PASTE 57 GM TUBE TOP SCH ×2 (09:48→20:59)
--- NOTE | 2018-12-28 10:48 | NUR ---
MAUREEN GONZALEZ, ORDERED LABS FOR AM , SEEN BY CLOTH BEAMER Addendum: 12/28/18 at 1506 by LINUS SALGUERO RN Amended: Links added.
--- NOTE | 2018-12-28 10:59 | NUR ---
DR ABDUL CAME TO SEE PT , NO ORDERS Addendum: 12/28/18 at 1503 by LINUS SALGUERO RN Amended: Isabella hutson. Addendum: 12/28/18 at 1506 by LINUS SALGUERO RN Amended: Isabella hutson.
--- NOTE | 2018-12-28 11:04 | NUR ---
CLINICAL PHARMACY NOTES (TPN per pharmacy) Subjective: 43 y/o male presented with fever and significant anemia, possible sepsis. pt was found to have malposition G-tube with abdominal abscess. PT had surgery for GT removal, incision of abdominal wall abscess and necrotic tissue. per wound care note, he has left buttock stage 2 PI. Since MD & surgeon anticipated more days without tube feeding, they decided to place pt on TPN until G-tube insertion possible. Per MD note, consider G tube once WBC trends down and cleared by ID. Hospice Aide recommendation: Rec TPN goal: D10%, AA 4.25% @ 70ml/hr + IL 20% 250ml daily. At goal would provide 1357 kcal and 71gm protein Objective: Na 134, K 3.6, CL 98, CO2 27, BUN/SCR 21/1.4, CA 8.0 (corrected 9.44), MAG 1.8, PHOS 3.1, ALBUMIN 2.2 (12/23), GLUCOSE 119, TG 216 (12/24) Assessment/Plan: 1) TPN bag #23 as D10% + AA 4.25% at a goal rate of 70 ml/hr, has 80 meq of Na acetate, 100 meq Nacl, Mag sulfate 0.5 gm, . TPN bag #24 as D10% + AA 4.25% at a goal rate of 70 ml/hr, has 80 meq of Na acetate, 100 meq Nacl, Mag sulfate 0.5 gm, MVI 10ml, Trace elements 1 ml * There is a shortage of Na acetate vials (formula is being adjusted based on availability) 2) will continue intralipids 20% 250ml over 24 hrs (re-order intralipids daily). Will monitor TG level periodically . 3)pt currently on accuck q6hr with regular insulin sliding scale 4) will order labs for am 5) Pt is on Bactrim IV in D5% 300 ml per dose (3 doses per 24hrs). Will monitor Na & K level closely. will continue to monitor and adjust the electrolytes and TPN as the need arise.
[2018-12-28] MEDS ORDERED: IRR STERIL WATER FOR IRR 1000 ML BOTTLE IR ONE (11:20)
[2018-12-28] MEDS ORDERED: PROPOFOL 200 MG/20 ML BOTTLE IV ONE (11:20)
[2018-12-28] MEDS ORDERED: IV NORMAL SALINE 1000 ML BAG IV ONE (11:20)
--- NOTE | 2018-12-28 11:24 | NUR ---
DR WALDEN DID A BEDSIDE INSERTION OF PEG , WITH OR NURSES PRESENT AND , NESTHESIOLOGIST AND RT AT BEDSIDE. POST OP ORDERS RECEIVED AND NOTED Addendum: 12/28/18 at 1458 by LINUS SALGUERO RN Amended: Links added. Addendum: 12/28/18 at 1500 by LINUS SALGUERO RN Amended: Links added. Addendum: 12/28/18 at 1501 by LINUS SALGUERO RN Amended: Links added. Addendum: 12/28/18 at 1503 by LINUS SALGUERO RN Amended: Links added. Addendum: 12/28/18 at 1506 by LINUS SALGUERO RN Amended: Links added.
--- NOTE | 2018-12-28 13:27 | NUR ---
CARLOS PATEL ID SAW THE PATIENT , NO ORDERS Addendum: 12/28/18 at 1500 by LINUS SALGUERO RN Amended: Isabella hutson. Addendum: 12/28/18 at 1501 by LINUS SALGUERO RN Amended: Isabella hutson. Addendum: 12/28/18 at 1503 by LINUS SALGUERO RN Amended: Links added. Addendum: 12/28/18 at 1506 by LINUS SALGUERO RN Amended: Links added.
[2018-12-28] MEDS: hydrALAZINE HCL 50 MG TABLET GT SCH ×2 (14:23→21:44)
[2018-12-28] MEDS: OSMOLITE 1.2 CAL 1,000 ML LIQUID GT PRN (16:59)
--- NOTE | 2018-12-28 17:30 | NUR ---
tube fdg osmolite 1.2 started at 20ml/hr via GT. all gt meds resumed Addendum: 12/28/18 at 1809 by ONEIL MARIE RN Amended: Links added. Addendum: 12/28/18 at 1810 by ONEIL MARIE RN Amended: Links added. Addendum: 12/28/18 at 1811 by ONEIL MARIE RN Amended: Links added.
--- NOTE | 2018-12-28 17:36 | NUR ---
STABLE ON CURRENT VENT SETTINGS. SUCTIONED NEEDED FOR MODERATE AMOUNT OF WHITE SECRETIONS, STREAKS OF FRESH BLOOD OBSERVED. RN AWARE. NO CHANGES MADE WITH SETTINGS.
[2018-12-28] MEDS ORDERED: IV FAT EMULSIONS 20% 250 ML IV ONE (21:00)
[2018-12-28] MEDS ORDERED: [UNRECOGNIZED DRUG - OTHER] IV PRN ×7 (23:00)
[2018-12-29] VITALS (13 sets, daily range): BP systolic 116–163; BP diastolic 76–99
--- NOTE | 2018-12-29 03:45 | NUR ---
RECEIVED PT ON GALINDO VENTILATOR VIA TRACH. PT IS ON THE FOLLOWING SETTINGS THAT ARE CHARTED ON THE MECHANICAL VENTILATOR NOTES. TRACH TUBE IS PATENT AND SECURED WITH TRACH TIES. SUCTIONED SMALL AMOUNTS OF THICK YELLOW AND BLOODY SECRETIONS. RN IS AWARE OF SECRETIONS. TRACH CARE DONE. HME CHANGED. VENTILATOR ALARMS CHECKED AND THEY ARE ON AND AUDIBLE. VENTILATOR IS PLUGGED IN THE RED OUTLET. BMV AND BACK UP TRACH IS BY BEDSIDE. PT IS TOLERATING CURRENT VENTILATOR SETTINGS WELL AT THIS TIME. WILL CONTINUE TO MONITOR PT.
[2018-12-29 05:20] LABS: BASOPHILS % (AUTO) 0.8 % (0.0-2.0); EOSINOPHILS # (AUTO) 0.4 K/uL (0.0-0.7); HEMATOCRIT 22.9 % (36.7-47.1); HEMOGLOBIN 8.6 g/dL (12.5-16.3); LYMPHOCYTES # (AUTO) 0.5 K/uL (20.0-40.0); LYMPHOCYTES % (AUTO) 8.5 % (20.5-51.5); MEAN CORPUSCULAR HEMOGLOBIN 31.6 uug (23.8-33.4); MEAN CORPUSCULAR HGB CONC 38 g/dL (32.5-36.3); MEAN CORPUSCULAR VOLUME 84.2 fL (73.0-96.2); MONOCYTES # (AUTO) 0.3 K/uL (2.0-10.0); MONOCYTES % (AUTO) 5.9 % (0.0-11.0); NEUTROPHILS # (AUTO) 4.6 K/uL (1.8-8.9); NEUTROPHILS % (AUTO) 78.8 % (38.5-71.5); PLATELET COUNT (AUTO) 400 K/uL (152-348); RED BLOOD CELL COUNT(AUTO) 2.72 MIL/uL (4.06-5.63); WHITE BLOOD COUNT (AUTO) 5.8 K/uL (3.6-10.2)
[2018-12-29] MEDS: hydrALAZINE HCL 50 MG TABLET GT SCH ×3 (05:41→21:49)
[2018-12-29 05:46] LABS: CREATININE 1.3 mg/dL (0.6-1.3); MAGNESIUM 1.7 mg/dL (1.8-2.4); PHOSPHOROUS 3.6 mg/dL (2.5-4.9); POTASSIUM 3.7 mmol/L (3.5-5.1)
[2018-12-29] MEDS: BLOOD SUGAR DIAGNOSTIC 1 EACH STRIP VI SCH ×3 (06:06→17:43)
[2018-12-29] MEDS: HYDROCODONE/APAP 5-325MG TABLET GT PRN ×2 (06:15→20:16)
[2018-12-29] MEDS: SULFAMETHOXAZOL IV SCH ×3 (06:16→21:49)
[2018-12-29] MEDS: TRIMETHOPRI IV SCH ×3 (06:16→21:49)
[2018-12-29] MEDS: DEXTROSE IV SCH ×3 (06:16→21:49)
[2018-12-29] MEDS: IV NORMAL SALINE 250 ML IV PRN ×2 (06:35→16:00)
--- NOTE | 2018-12-29 07:30 | NUR ---
report received from [facility]. 43 yr old male was admitted on 12/10/17 for ARF, UTI, Anemia. patient is quadriplegic, trach to vent,fio2 30%, ac 18, [id number] tv 400. is NPO.Intralipids at 10ml/hr and tko NS via eleonora PICC line has galindo catheter.intact. ekg is sinus rhythm on contact isolation for MRSA abdominal wound. abd binder in place DVT pumps intact. is receiving tube fdg at 50ml/hr osmolite 1.2 abdominal wound. s/p incision and drainage of abdominal abscess 12/14. no bleeding noted. Addendum: 12/29/18 at 0954 by ONEIL MARIE RN Amended: Links added.
[2018-12-29] MEDS: CHLORHEXIDINE GLUCONATE 15 ML MOUTHWASH MM SCH ×2 (08:19→16:33)
[2018-12-29] MEDS: SENNOSIDES 1 TABLET GT SCH ×2 (08:19→16:33)
[2018-12-29] MEDS: AMLODIPINE 5 MG TABLET GT SCH (08:19)
[2018-12-29] MEDS: PANTOPRAZOLE SODIUM 40 MG VIAL IV SCH (08:20)
[2018-12-29] MEDS: Z GUARD REMEDY PASTE 57 GM TUBE TOP SCH ×2 (08:21→20:17)
[2018-12-29] MEDS: CHLORTHALIDONE 25 MG TABLET GT SCH (08:21)
[2018-12-29] MEDS: SODIUM HYPOCHLORITE 0.125% 473 ML BOTTLE TP SCH (08:21)
[2018-12-29] MEDS: NYSTATIN POWDER 15 GM BOTTLE TOP SCH ×2 (08:22→20:17)
--- NOTE | 2018-12-29 09:30 | NUR ---
seen by CARLOS Connorno orders received. Addendum: 12/29/18 at 1023 by ONEIL MARIE RN Amended: Links added. Addendum: 12/29/18 at 1025 by ONEIL MARIE RN Amended: Links added.
[2018-12-29] MEDS: EPOETIN ALFA 10,000 UNITS/ML VIAL SQ SCH (10:15)
--- NOTE | 2018-12-29 10:24 | NUR ---
seen by Dr Shipley. no orders received. Addendum: 12/29/18 at 1025 by ONEIL MARIE RN Amended: Links added.
--- NOTE | 2018-12-29 12:00 | NUR ---
at the bedside visiting. concerns about possible discharge back to snf with open wounds were raised. will consult with MDS Addendum: 12/29/18 at 1838 by ONEIL MARIE RN Amended: Links added.
--- NOTE | 2018-12-29 12:15 | NUR ---
seen by dr yen. no orders received. Addendum: 12/29/18 at 1835 by ONEIL MARIE RN Amended: Isabella added. Addendum: 12/29/18 at 1838 by ONEIL MARIE RN Amended: Isabella added.
--- NOTE | 2018-12-29 12:30 | NUR ---
seen by CARLOS CASEY. no orders received Addendum: 12/29/18 at 1831 by ONEIL MARIE RN Amended: Links added. Addendum: 12/29/18 at 1834 by ONEIL MARIE RN Amended: Links added. Addendum: 12/29/18 at 1838 by ONEIL MARIE RN Amended: Links added.
[2018-12-29] MEDS: HYDROMORPHONE 1 MG/1 ML DISP.SYRIN IV PRN (14:18)
--- NOTE | 2018-12-29 14:18 | NUR ---
medicated for abdominal pain. wound care done.pm care done Addendum: 12/29/18 at 1814 by ONEIL MARIE RN Amended: Isabella added. Addendum: 12/29/18 at 1814 by ONEIL MARIE RN Amended: Isabella added. Addendum: 12/29/18 at 1814 by ONEIL MARIE RN Amended: Links added. Addendum: 12/29/18 at 1815 by ONEIL MARIE RN Amended: Links added. Addendum: 12/29/18 at 1816 by ONEIL MARIE RN Amended: Links added. Addendum: 12/29/18 at 1816 by ONEIL MARIE RN Amended: Links added. Addendum: 12/29/18 at 6 by ONEIL MARIE RN Amended: Links added. Addendum: 12/29/18 at 1816 by ONEIL MARIE RN Amended: Links added. Addendum: 12/29/18 at 1816 by ONEIL MARIE RN Amended: Links added.
--- NOTE | 2018-12-29 16:30 | NUR ---
seen by CRALOS Person for surgery. no orders received Addendum: 12/29/18 at 1830 by ONEIL MARIE RN Amended: Links added. Addendum: 12/29/18 at 1831 by ONEIL MARIE RN Amended: Links added. Addendum: 12/29/18 at 1835 by ONEIL MARIE RN Amended: Links added. Addendum: 12/29/18 at 1838 by ONEIL MARIE RN Amended: Links added.
[2018-12-29] MEDS: MAGNESIUM SULFATE/D5W 100 ML IV SCH ×2 (16:34→17:37)
[2018-12-29] MEDS: OSMOLITE 1.2 CAL 1,000 ML LIQUID GT PRN (16:48)
--- NOTE | 2018-12-29 17:30 | NUR ---
seen by Tracey green ID. no changes in antibiotics. Addendum: 12/29/18 at 1828 by ONEIL MARIE RN Amended: Links added. Addendum: 12/29/18 at 1830 by ONEIL MARIE RN Amended: Links added. Addendum: 12/29/18 at 1832 by ONEIL MARIE RN Amended: Links added. Addendum: 12/29/18 at 1835 by ONEIL MARIE RN Amended: Links added. Addendum: 12/29/18 at 1838 by ONEIL MARIE RN Amended: Links added.
[2018-12-29] MEDS: INSULIN REGULAR, HUMAN 300 UNIT/3 ML VIAL SQ PRN (17:47)
--- NOTE | 2018-12-29 18:04 | NUR ---
accucheck 162, covered with 3 units humulin R SQ. remains on osmolite 1.2 tube fdg at 60ml/hr Addendum: 12/29/18 at 1804 by ONEIL MARIE RN Amended: Links added. Addendum: 12/29/18 at 1815 by ONEIL MARIE RN Amended: Links added. Addendum: 12/29/18 at 1815 by ONEIL MARIE RN Amended: Links added. Addendum: 12/29/18 at 1815 by ONEIL MARIE RN Amended: Links added. Addendum: 12/29/18 at 1815 by ONEIL MARIE RN Amended: Links added. Addendum: 12/29/18 at 6 by ONEIL MARIE RN Amended: Links added. Addendum: 12/29/18 at 6 by ONEIL MARIE RN Amended: Links added. Addendum: 12/29/18 at 6 by ONEIL MARIE RN Amended: Links added. Addendum: 12/29/18 at 1816 by ONEIL MARIE RN Amended: Isabella added. Addendum: 12/29/18 at 1816 by ONEIL MARIE RN Amended: Isabella added.
--- NOTE | 2018-12-29 19:19 | NUR ---
report given to Harshil RN Addendum: 12/29/18 at 1919 by ONEIL MARIE RN Amended: Links added.
[2018-12-30] VITALS (18 sets, daily range): BP systolic 115–137; BP diastolic 63–92
[2018-12-30] MEDS: BLOOD SUGAR DIAGNOSTIC 1 EACH STRIP VI SCH ×5 (00:09→23:34)
[2018-12-30] MEDS: HYDROMORPHONE 1 MG/1 ML DISP.SYRIN IV PRN (00:18)
[2018-12-30] MEDS: INSULIN REGULAR, HUMAN 300 UNIT/3 ML VIAL SQ PRN ×2 (01:08→17:44)
[2018-12-30] MEDS: HYDROCODONE/APAP 5-325MG TABLET GT PRN ×3 (02:31→20:29)
--- NOTE | 2018-12-30 03:55 | NUR ---
Trached patient is on Merida Vent with ordered settings of AC 18, vt 400, +5, 30%. He is trached with a cuffed Portex 8. [employer] used for cuff inflation/ assessment. Airway patent and secured with trach ties @ midline. Oral care/ Trach care rendered. Will continue to monitor.
[2018-12-30 05:06] LABS: BASOPHILS % (AUTO) 0.3 % (0.0-2.0); EOSINOPHILS # (AUTO) 0.4 K/uL (0.0-0.7); EOSINOPHILS % (AUTO) 5.8 % (0.0-7.0); HEMATOCRIT 23.4 % (36.7-47.1); HEMOGLOBIN 7.7 g/dL (12.5-16.3); LYMPHOCYTES # (AUTO) 0.4 K/uL (20.0-40.0); LYMPHOCYTES % (AUTO) 4.8 % (20.5-51.5); MEAN CORPUSCULAR HEMOGLOBIN 27.8 uug (23.8-33.4); MEAN CORPUSCULAR HGB CONC 33 g/dL (32.5-36.3); MEAN CORPUSCULAR VOLUME 84.2 fL (73.0-96.2); MONOCYTES # (AUTO) 0.3 K/uL (2.0-10.0); NEUTROPHILS # (AUTO) 6.5 K/uL (1.8-8.9); NEUTROPHILS % (AUTO) 85.1 % (38.5-71.5); PLATELET COUNT (AUTO) 303 K/uL (152-348); RED BLOOD CELL COUNT(AUTO) 2.78 MIL/uL (4.06-5.63); WHITE BLOOD COUNT (AUTO) 7.6 K/uL (3.6-10.2)
[2018-12-30 05:10] LABS: CREATININE 1.5 mg/dL (0.6-1.3); MAGNESIUM 2.2 mg/dL (1.8-2.4); POTASSIUM 4.1 mmol/L (3.5-5.1)
[2018-12-30] MEDS: DEXTROSE IV SCH ×2 (05:56→14:17)
[2018-12-30] MEDS: SULFAMETHOXAZOL IV SCH ×2 (05:56→14:17)
[2018-12-30] MEDS: TRIMETHOPRI IV SCH ×2 (05:56→14:17)
[2018-12-30] MEDS: hydrALAZINE HCL 50 MG TABLET GT SCH ×3 (05:56→21:36)
--- NOTE | 2018-12-30 08:00 | NUR ---
PATIENT RECIEVED ON GALINDO VENT WITH A/C OF-18, TV-400, FI02-30%, AND PEEP OF -5. IN NO ACUTE DISTRESS. LEY CATHETER DRAINING BRAXTON CLEAR URINE,.OPENS EYES SPONTANEOUSLY, WOUND CARE TO SACRAL, BUTTOCK AREA. Z-GUARD APPLIED. NO OPEN LESIONS NOTED.
[2018-12-30] MEDS: CHLORTHALIDONE 25 MG TABLET GT SCH (08:46)
[2018-12-30] MEDS: SENNOSIDES 1 TABLET GT SCH ×2 (08:46→17:40)
[2018-12-30] MEDS: CHLORHEXIDINE GLUCONATE 15 ML MOUTHWASH MM SCH ×2 (08:46→17:46)
[2018-12-30] MEDS: PANTOPRAZOLE SODIUM 40 MG VIAL IV SCH (08:46)
[2018-12-30] MEDS: AMLODIPINE 5 MG TABLET GT SCH (08:47)
[2018-12-30] MEDS: SODIUM HYPOCHLORITE 0.125% 473 ML BOTTLE TP SCH (08:48)
[2018-12-30] MEDS: NYSTATIN POWDER 15 GM BOTTLE TOP SCH ×2 (08:49→20:25)
[2018-12-30] MEDS: Z GUARD REMEDY PASTE 57 GM TUBE TOP SCH ×2 (08:51→20:23)
--- NOTE | 2018-12-30 10:00 | NUR ---
PATIENT TURNED AND POSITIONED, MOUTHCARE GIVEN. TUBE FEEDING OF OSMOLITE 1.2 STARTED PER G-TUBE AT 60CC/HR . NO DISTRESS NOTED.
--- NOTE | 2018-12-30 13:20 | NUR ---
temp-100.7 axillary and tylenol 1000mg given per gt
[2018-12-30] MEDS: ACETAMINOPHEN ES 500 MG TABLET GT PRN ×2 (13:28→23:21)
--- NOTE | 2018-12-30 14:40 | NUR ---
temp 100.1 ax
--- NOTE | 2018-12-30 15:00 | NUR ---
temp 101. rectal and dionna rendon talent solutions manager notified with orders and dischg cancelled
--- NOTE | 2018-12-30 15:25 | NUR ---
PCXR DONE AT BEDSIDE
--- NOTE | 2018-12-30 18:00 | NUR ---
PERIPHERAL AND PICC LINE BLOOD CULTURES SENT TO LAB, SPUTUM CULTURE SENT TO LAB BY RT, UA FOR CULTURE SENT TO LAB
--- NOTE | 2018-12-30 18:10 | NUR ---
Pt.was seen by . Addendum: 12/30/18 at 1841 by OMAR MENEZES RN wrong pt.
--- NOTE | 2018-12-30 19:46 | NUR ---
CLINICAL PHARMACY NOTE:VANCOMYCIN DOSING Request for vancomycin dosing on 43 y/o male 167.64cm 70.3KG for suspected infection temp 101.1F BUN 22 Scr 1.5 WBC 7.6 also on Zosyn start vancomycin 1gm ivpb q16h estimated trough 15.7. Will order trough level prior to 3rd dose. Will continue to monitor
[2018-12-30] MEDS: IV NORMAL SALINE 250 ML IV PRN (19:57)
[2018-12-30] MEDS ORDERED: VANCOMYCIN IV 1,000 MG in IV DEXTROSE 5% 250 ML IV SCH (20:00)
--- NOTE | 2018-12-30 20:00 | NUR ---
RECEIVED PT OPENS HIS EYES TO ANY STIMULI. TRACH TO VENT W/ SETTINGS OF AC-18, TV-400, FIO2-30%, PEEP-+5 W/ 02 SAT OF 98%. SUCTIONED VIA TRACH W/ SCANTY THICK TANNISH MUCOUS. G-TUBE INTACT, CHECKED PLACEMENT, CHECKED RESIDUAL 5CC NOTED. ON TUBE FDG OF OSMOLITE 1.2 @ 60CC/HR. PICC LINE INTACT & PATENT ON CEFERINO. REPOSITIONED PT. ON HIS L SIDE W/ HOB ELEVATED AFTER BACK CARE DONE. AFEBRILE.
[2018-12-30] MEDS: PIPERACILLIN SODIUM/TAZOBACTAM 3.375 G in IV DEXTROSE 5% 50 ML IV SCH (21:55)
--- NOTE | 2018-12-30 23:00 | NUR ---
HS CARE DONE. REPOSITIONED & SUCTIONED PT.
[2018-12-31] MEDS: INSULIN REGULAR, HUMAN 300 UNIT/3 ML VIAL SQ PRN ×4 (00:02→23:30)
[2018-12-31 00:06] VITALS: BP 118/66
--- NOTE | 2018-12-31 02:08 | NUR ---
AM CARE DONE, TRACH CARE DONE. TOLERATING TUBE FDG WELL. REPOSITIONED W/ HOB ELEVATED.
[2018-12-31 04:00] VITALS: BP 121/76
[2018-12-31] MEDS: HYDROCODONE/APAP 5-325MG TABLET GT PRN (04:23)
[2018-12-31] MEDS: PIPERACILLIN SODIUM/TAZOBACTAM 3.375 G in IV DEXTROSE 5% 50 ML IV SCH ×2 (05:20→13:39)
[2018-12-31] MEDS: hydrALAZINE HCL 50 MG TABLET GT SCH ×3 (05:23→21:39)
[2018-12-31] MEDS: BLOOD SUGAR DIAGNOSTIC 1 EACH STRIP VI SCH ×4 (05:30→23:27)
[2018-12-31 05:31] LABS: BASOPHILS % (AUTO) 0.3 % (0.0-2.0); EOSINOPHILS # (AUTO) 0.5 K/uL (0.0-0.7); EOSINOPHILS % (AUTO) 9.7 % (0.0-7.0); HEMATOCRIT 21.6 % (36.7-47.1); LYMPHOCYTES # (AUTO) 0.5 K/uL (20.0-40.0); LYMPHOCYTES % (AUTO) 8.8 % (20.5-51.5); MEAN CORPUSCULAR HEMOGLOBIN 28.4 uug (23.8-33.4); MEAN CORPUSCULAR HGB CONC 33 g/dL (32.5-36.3); MEAN CORPUSCULAR VOLUME 86.1 fL (73.0-96.2); MONOCYTES # (AUTO) 0.3 K/uL (2.0-10.0); MONOCYTES % (AUTO) 5.2 % (0.0-11.0); PLATELET COUNT (AUTO) 230 K/uL (152-348); WHITE BLOOD COUNT (AUTO) 5.3 K/uL (3.6-10.2)
[2018-12-31 05:34] LABS: CREATININE 1.7 mg/dL (0.6-1.3); PHOSPHOROUS 4.7 mg/dL (2.5-4.9); POTASSIUM 4.5 mmol/L (3.5-5.1)
[2018-12-31 05:54] LABS: HEMOGLOBIN 7.1 g/dL (12.5-16.3)
--- NOTE | 2018-12-31 06:00 | NUR ---
OFF TUBE FDG , WILL RESUME @ 1000.
--- NOTE | 2018-12-31 06:00 | NUR ---
REPOSITIONED ON HIS R SIDE W/ HOB ELEVATED. NOT IN ANY DISTRESS.
--- NOTE | 2018-12-31 07:20 | NUR ---
RT PT RECEIVED ON GALINDO VENT WITH SETTINGS OF AC18 400 PEEP +5 30%. PT TRACH CARE WAS DONE. PT TRACH SIZE PORTEX 8 . PRN TX WAS GIVEN. HME WAS CHANGED. PT SUCTION NO DISTRESS NOTED CUFF CHECKED WITH AUTOMOTIVE LOT ATTENDANT. PT AMBU BAG AND BACK UP TRACH AT BED SIDE. PT ALARMS ON AND AUDIBLE WILL CONTINUE TO MONITOR PT.
[2018-12-31 08:00] VITALS: BP 138/38
[2018-12-31] MEDS: SENNOSIDES 1 TABLET GT SCH ×2 (08:26→17:13)
[2018-12-31] MEDS: Z GUARD REMEDY PASTE 57 GM TUBE TOP SCH ×2 (08:26→20:46)
[2018-12-31] MEDS: CHLORHEXIDINE GLUCONATE 15 ML MOUTHWASH MM SCH ×2 (08:26→17:13)
[2018-12-31] MEDS: PANTOPRAZOLE SODIUM 40 MG VIAL IV SCH (08:26)
[2018-12-31] MEDS: SODIUM HYPOCHLORITE 0.125% 473 ML BOTTLE TP SCH (08:27)
[2018-12-31] MEDS: AMLODIPINE 5 MG TABLET GT SCH (08:27)
[2018-12-31] MEDS: NYSTATIN POWDER 15 GM BOTTLE TOP SCH ×2 (08:27→20:46)
[2018-12-31] MEDS: CHLORTHALIDONE 25 MG TABLET GT SCH (08:32)
--- NOTE | 2018-12-31 09:12 | NUR ---
FIELD TAX AUDITOR Joni Nieto here to see pt. Full report given. New orders received.
[2018-12-31 09:35] LABS: *BILIRUBIN,URIN NEGATIVE (NEGATIVE); *BLOOD, URINE NEGATIVE (NEGATIVE); *CLARITY,URINE SLIGHTLY CLOUDY (CLEAR); *COLOR,URINE YELLOW (YELLOW); *KETONES,URINE NEGATIVE (NEGATIVE); *UROBILINOGEN,URINE 0.2 E.U./dl (NORMAL); LEUKOCYTE ESTERASE ,URINE 1+ (NEGATIVE); NITRITE, URINE NEGATIVE (NEGATIVE); PH,URINE 7.5 (5.0-8.0); UGLUCOSE NEGATIVE (NEGATIVE)
[2018-12-31 10:00] LABS: BACTERIA,URINE FEW /HPF (NONE SEEN); RBC,URINE NONE SEEN /HPF (0-3); SQUAMOUS EPITHELIAL CELL,UR FEW /HPF (NONE SEEN)
[2018-12-31] MEDS ORDERED: VANCOMYCIN IV 1 G in PREMIXED 0 EACH IV ONE (10:00)
[2018-12-31] MEDS: OSMOLITE 1.2 CAL 1,000 ML LIQUID GT PRN (10:00)
--- NOTE | 2018-12-31 10:00 | NUR ---
US tech here to see pt for US chest.
[2018-12-31 10:01] LABS: YEAST,URINE BUDDING YEAST /HPF (NONE SEEN)
[2018-12-31] MEDS: HYDROMORPHONE 1 MG/1 ML DISP.SYRIN IV PRN (10:30)
--- NOTE | 2018-12-31 11:26 | NUR ---
CLINICAL PHARMACY NOTE:VANCOMYCIN DOSING S To continue vancomycin dosing on 43 y/o male bedbound patient for suspected infection (spiked fever while on Bactrim IV) O temp 90.7 F BUN 27 Scr 1.7 WBC 5.3 Vanco random on 12/31 at 0600: 13.8 Plan Patient received vanco 1gm IVPB x1 on 12/30 at 2000. Since BUN/SRC is unstable, will dose by random level for today. Since vanco random level this am is 13.8, will give vancomycin 1gm ivpb x1 today at 1000. Will order vanco random level for 01/01 with am labs for further dosing. Will continue to monitor
[2018-12-31 12:00] VITALS: BP 119/72
--- NOTE | 2018-12-31 13:12 | NUR ---
Received request from Joni Nieto NP to evaluate TF formula for appropriateness based on concern about pt's renal function. Pt's current formula Osmolite 1.2 60mL/hr x 20hrs provides 1200mL formula, 1440 kcal (25kcal/kg adj IBW 58kg), 67g protein (1.2g/kg adj IBW 58kg) and 984mL free water. The protein provided by this regimen is within appropriate ranges for this pt based on his disease states. Based on fatty acid profile, Nepro is a less desirable TF product option for this pt due to his previously elevated triglyceride levels; however, we may need to consider switching to this product in the future to increase calorie content of TF (as current regimen falls below needs range), or should pt develop elevated renal electrolytes. Addendum: 12/31/18 at [address] Amended: Links added.
[2018-12-31 16:00] VITALS: BP 134/85
--- NOTE | 2018-12-31 17:40 | NUR ---
RT PT REMAINS ON VENT NO CHANGES MADE AT THIS TIME WILL CONTINUE TO MONITOR PT.
[2018-12-31 18:20] LABS: HEMATOCRIT 21.5 % (36.7-47.1)
[2018-12-31 18:26] LABS: HEMOGLOBIN 7.1 g/dL (12.5-16.3)
--- NOTE | 2018-12-31 19:35 | NUR ---
PT RECEIVED ON CONTINUOUS VENT AC 18 VT 400 PEEP 5 FIO2 30%. PT AWAKE AND ALERT. TRACH IN PLACED AND SECURED WITH TRACH TIE. BACK UP TRACH AND AMBU BAG AT BEDSIDE. TRACH CARE DONE WITHOUT COMPLICATIONS NOTED. SUCTION PRN. VENT CHECKED, ALARMS WORKING WELL AND AUDIBLE. NO DISTRESS NOTED AT THIS TIME. WILL CONTINUE TO MONITOR.
[2018-12-31 20:00] VITALS: BP 117/75
--- NOTE | 2018-12-31 20:00 | NUR ---
RECEIVED PT OPENS HIS EYES TO VERBAL STIMULI. TRACH TO VENT W/ SETTINGS OF AC-18, TV-400, FIO2-30%, PEEP-+5, W/ O2 SAT OF 99%. SUCTIONED VIA TRACH W/ MINIMAL TANNISH THICK MUCOUS. G-TUBE INTACT, CHECKED PLACEMENT & CHECKED RESIDUAL 5CC NOTED. ON TUBE FDG OF OSMOLITE 1.2 @ 60CC/HR.PICC LINE ON CEFERINO PORT ARE PATENT. NS @ 10CC/HR. AFEBRILE. REPOSITIONED ON HIS SIDE W/ HOB ELEVATED.
[2018-12-31] MEDS: MEROPENEM 1 G in IV NORMAL SALINE 100 ML IV SCH (21:40)
--- NOTE | 2018-12-31 22:00 | NUR ---
HS CARE DONE, SUCTIONED & REPOSITIONED W/ HOB ELEVATED.
[2018-12-31] MEDS: ACETAMINOPHEN ES 500 MG TABLET GT PRN (23:47)
[2019-01-01] VITALS (7 sets, daily range): BP systolic 74–139; BP diastolic 65–85
--- NOTE | 2019-01-01 | NUR ---
T-99.4 ORALLY. G-TUBE RESIDUAL 5CC NOTED.
--- NOTE | 2019-01-01 04:00 | NUR ---
AM CARE DONE. TRACH CARE DONE. REPOSITIONED W/ HOB ELEVATED.
[2019-01-01] MEDS: IV NORMAL SALINE 250 ML IV PRN (04:59)
[2019-01-01] MEDS: MEROPENEM 1 G in IV NORMAL SALINE 100 ML IV SCH ×3 (05:27→22:30)
[2019-01-01] MEDS: hydrALAZINE HCL 50 MG TABLET GT SCH ×3 (05:27→21:03)
[2019-01-01 05:32] LABS: CREATININE 1.7 mg/dL (0.6-1.3); PHOSPHOROUS 4.4 mg/dL (2.5-4.9); POTASSIUM 4.8 mmol/L (3.5-5.1); VANCOMYCIN,RANDOM 20.5 ug/mL (18.0-26.0)
[2019-01-01] MEDS: BLOOD SUGAR DIAGNOSTIC 1 EACH STRIP VI SCH ×3 (05:39→18:23)
[2019-01-01 05:46] LABS: BASOPHILS % (AUTO) 0.5 % (0.0-2.0); EOSINOPHILS # (AUTO) 0.6 K/uL (0.0-0.7); EOSINOPHILS % (AUTO) 11.3 % (0.0-7.0); LYMPHOCYTES # (AUTO) 0.7 K/uL (20.0-40.0); LYMPHOCYTES % (AUTO) 13.7 % (20.5-51.5); MEAN CORPUSCULAR HEMOGLOBIN 27.8 uug (23.8-33.4); MEAN CORPUSCULAR HGB CONC 32 g/dL (32.5-36.3); MONOCYTES # (AUTO) 0.4 K/uL (2.0-10.0); MONOCYTES % (AUTO) 7.5 % (0.0-11.0); NEUTROPHILS # (AUTO) 3.4 K/uL (1.8-8.9); PLATELET COUNT (AUTO) 227 K/uL (152-348); RED BLOOD CELL COUNT(AUTO) 2.67 MIL/uL (4.06-5.63); WHITE BLOOD COUNT (AUTO) 5.1 K/uL (3.6-10.2)
[2019-01-01 06:00] LABS: HEMOGLOBIN 7.4 g/dL (12.5-16.3)
--- NOTE | 2019-01-01 06:00 | NUR ---
OFF TUBE FDG WILL RESUME @ 1000.
--- NOTE | 2019-01-01 07:34 | NUR ---
RT PT RECEIVED ON GALINDO VENT WITH SETTINGS OF AC18 400 PEEP +5 30%. PT TRACH CARE WAS DONE. PT TRACH SIZE PORTEX 8. HME WAS CHANGED. PT SUCTION NO DISTRESS NOTED CUFF CHECKED WITH NURSING CARE PARTNER. PT AMBU BAG AND BACK UP TRACH AT BED SIDE. PT ALARMS ON AND AUDIBLE WILL CONTINUE TO MONITOR PT.
[2019-01-01] MEDS: CHLORTHALIDONE 25 MG TABLET GT SCH (07:58)
[2019-01-01] MEDS: Z GUARD REMEDY PASTE 57 GM TUBE TOP SCH ×2 (07:58→21:02)
[2019-01-01] MEDS: PANTOPRAZOLE SODIUM 40 MG VIAL IV SCH (07:58)
[2019-01-01] MEDS: SENNOSIDES 1 TABLET GT SCH ×2 (07:58→17:28)
[2019-01-01] MEDS: CHLORHEXIDINE GLUCONATE 15 ML MOUTHWASH MM SCH ×2 (07:58→17:28)
[2019-01-01] MEDS: SODIUM HYPOCHLORITE 0.125% 473 ML BOTTLE TP SCH (07:59)
[2019-01-01] MEDS: NYSTATIN POWDER 15 GM BOTTLE TOP SCH ×2 (08:00→21:01)
[2019-01-01] MEDS: AMLODIPINE 5 MG TABLET GT SCH (08:01)
[2019-01-01] MEDS ORDERED: BISACODYL 10 MG SUPP.RECT RC ONE (09:00)
--- NOTE | 2019-01-01 09:50 | NUR ---
Dr. Shipley here to see pt. Full report given. New orders received.
[2019-01-01] MEDS: OSMOLITE 1.2 CAL 1,000 ML LIQUID GT PRN (10:04)
[2019-01-01 10:47] LABS: *BILIRUBIN,URIN NEGATIVE (NEGATIVE); *BLOOD, URINE NEGATIVE (NEGATIVE); *CLARITY,URINE CLOUDY (CLEAR); *COLOR,URINE YELLOW (YELLOW); *KETONES,URINE NEGATIVE (NEGATIVE); *UROBILINOGEN,URINE 0.2 E.U./dl (NORMAL); LEUKOCYTE ESTERASE ,URINE 2+ (NEGATIVE); NITRITE, URINE NEGATIVE (NEGATIVE); PH,URINE 7.5 (5.0-8.0); UGLUCOSE NEGATIVE (NEGATIVE)
[2019-01-01 11:24] LABS: RBC,URINE NONE SEEN /HPF (0-3)
[2019-01-01 11:25] LABS: BACTERIA,URINE NONE SEEN /HPF (NONE SEEN); WBC,URINE 20-50 /HPF (0-3)
--- NOTE | 2019-01-01 11:25 | NUR ---
CARLOS Mustafa here to see pt. Full report given. No new orders received.
[2019-01-01 11:26] LABS: SQUAMOUS EPITHELIAL CELL,UR NONE SEEN /HPF (NONE SEEN); YEAST,URINE MANY /HPF (NONE SEEN)
[2019-01-01 11:31] LABS: *CREATININE,URINE 22.8 mg/dL (30-125); *URINE TOTAL PROTEIN RANDOM 41.9 mg/dL (<150/24HR)
--- NOTE | 2019-01-01 12:36 | NUR ---
CLINICAL PHARMACY NOTE:VANCOMYCIN DOSING S To continue vancomycin dosing on 43 y/o male bedbound patient for suspected infection (spiked fever while on Bactrim IV) O temp 99.4 F BUN 26 Scr 1.7 WBC 5.1 Vanco random on 12/31 at 0600: 13.8 Random today 01/01 at 0600: 20.5 Plan Per today's random, will dose 1gm vanco tonight at 2100. Next random ordered for 01/03 @0600. Will follow renal function and adjust next draw earlier if indicated. Otherwise will follow level when available for further dosing. Will monitor
--- NOTE | 2019-01-01 15:15 | NUR ---
New galindo catheter inserted per PERMACULTURE CONTRACTOR Kee Johnson. Galindo patent and flowing freely. VSS wnl. Pt stable and nad noted.
[2019-01-01] MEDS: INSULIN REGULAR, HUMAN 300 UNIT/3 ML VIAL SQ PRN (18:21)
--- NOTE | 2019-01-01 19:30 | NUR ---
Received patient awake, opens eyes to verbal stimuli. With Tracheostomy Portex 8.0 to ventilator on AC mode with settings: rate of 18, TV 400, FiO2 30%, Peep 5. With PEG to ongoing feeding at 60mls/hr, tolerated. With PICC line to ongoing TKO IV fluid, infusing well. With a newly inserted galindo catheter, draining clear yellow urine in adequate amount. Abdominal wound with intact dressing secured with abdominal binder. Will closely monitor.
[2019-01-01] MEDS ORDERED: VANCOMYCIN IV 1,000 MG in IV DEXTROSE 5% 250 ML IV ONE (21:00)
[2019-01-02] VITALS (16 sets, daily range): BP systolic 116–153; BP diastolic 71–87
[2019-01-02] MEDS: BLOOD SUGAR DIAGNOSTIC 1 EACH STRIP VI SCH ×4 (00:08→18:32)
[2019-01-02] MEDS: INSULIN REGULAR, HUMAN 300 UNIT/3 ML VIAL SQ PRN (00:20)
[2019-01-02 02:08] LABS: *OCCULT BLOOD STOOL NEGATIVE (NEGATIVE)
--- NOTE | 2019-01-02 02:52 | NUR ---
PT ON CONT GALINDO VENT WITH PORTEX # [address] AND SECURED, WITH SAME CURRENT VENT SETTINGS, A/C 18, VT 400ML, PEEP5, 30%, PT DOES ASSIST AT TIMES, GOOD COUGH EFFORT, PINKISH TINGE SECRETIONS, CLEARING UP, CHANGE HME , TRACH CARE DONE, ALL VENT ALARMS GOOD, NO VENT CHANGES MADE, SAT 98%, AMB BAG AT BEDSIDE, PT STABLE.Luisa MARTÍNEZ RCP Addendum: 01/02/19 at 0254 by BUBBA MARTÍNEZ RT Amended: Links added.
[2019-01-02] MEDS: MEROPENEM 1 G in IV NORMAL SALINE 100 ML IV SCH ×3 (05:05→21:09)
[2019-01-02] MEDS: IV NORMAL SALINE 250 ML IV PRN (05:11)
[2019-01-02] MEDS: hydrALAZINE HCL 50 MG TABLET GT SCH ×3 (05:20→21:07)
--- NOTE | 2019-01-02 06:20 | NUR ---
No acute distress noted. Tolerating current ventilator setting, secretions suctioned as needed. Feeding per PEG tolerated, turned off at 0600. Wound treatment done, dressing secured with abdominal binder. Turned and repositioned every 2 hours. Heels offloaded. Attended all needs. Ensured safety and comfort. No other untoward events noted.
[2019-01-02 06:39] LABS: BASOPHILS % (AUTO) 0.4 % (0.0-2.0); EOSINOPHILS # (AUTO) 0.4 K/uL (0.0-0.7); EOSINOPHILS % (AUTO) 4.3 % (0.0-7.0); HEMATOCRIT 23.3 % (36.7-47.1); HEMOGLOBIN 7.6 g/dL (12.5-16.3); LYMPHOCYTES # (AUTO) 0.8 K/uL (20.0-40.0); LYMPHOCYTES % (AUTO) 8.3 % (20.5-51.5); MEAN CORPUSCULAR HEMOGLOBIN 27.6 uug (23.8-33.4); MEAN CORPUSCULAR HGB CONC 33 g/dL (32.5-36.3); MEAN CORPUSCULAR VOLUME 84.4 fL (73.0-96.2); MONOCYTES # (AUTO) 0.5 K/uL (2.0-10.0); NEUTROPHILS # (AUTO) 7.5 K/uL (1.8-8.9); PLATELET COUNT (AUTO) 258 K/uL (152-348); RED BLOOD CELL COUNT(AUTO) 2.76 MIL/uL (4.06-5.63); WHITE BLOOD COUNT (AUTO) 9.1 K/uL (3.6-10.2)
[2019-01-02 07:04] LABS: BILIRUBIN,TOTAL 0.5 mg/dL (0.2-1.0); CREATININE 1.8 mg/dL (0.6-1.3); MAGNESIUM 1.9 mg/dL (1.8-2.4); PHOSPHOROUS 3.4 mg/dL (2.5-4.9); POTASSIUM 4.5 mmol/L (3.5-5.1); TOTAL PROTEIN, SERUM 6.6 g/dL (6.4-8.2)
[2019-01-02] MEDS: PANTOPRAZOLE SODIUM 40 MG VIAL IV SCH (09:09)
[2019-01-02] MEDS: SENNOSIDES 1 TABLET GT SCH ×2 (09:09→17:47)
[2019-01-02] MEDS: CHLORHEXIDINE GLUCONATE 15 ML MOUTHWASH MM SCH ×2 (09:09→17:48)
[2019-01-02] MEDS: NYSTATIN POWDER 15 GM BOTTLE TOP SCH ×2 (09:10→21:06)
[2019-01-02] MEDS: SODIUM HYPOCHLORITE 0.125% 473 ML BOTTLE TP SCH (09:10)
[2019-01-02] MEDS: HYDROCODONE/APAP 5-325MG TABLET GT PRN (09:10)
[2019-01-02] MEDS: AMLODIPINE 5 MG TABLET GT SCH (09:10)
[2019-01-02] MEDS: Z GUARD REMEDY PASTE 57 GM TUBE TOP SCH ×2 (09:10→21:07)
[2019-01-02] MEDS: CHLORTHALIDONE 25 MG TABLET GT SCH (09:11)
[2019-01-02] MEDS: OSMOLITE 1.2 CAL 1,000 ML LIQUID GT PRN (11:37)
--- NOTE | 2019-01-02 11:40 | NUR ---
CLINICAL PHARMACY NOTE:VANCOMYCIN DOSING S To continue vancomycin dosing on 43 y/o male bedbound patient for suspected infection (spiked fever while on Bactrim IV) O temp 99.1 F BUN 24 Scr 1.8 WBC 9.1 Vanco random on 12/31 at 0600: 13.8 01/01 at 0600: 20.5 Plan 1gm vanco was given last night at 2100. Next random ordered for 01/03 @0600. Will follow level when available for further dosing. Will monitor.
--- NOTE | 2019-01-02 15:01 | NUR ---
PATIENT RECEIVED ON VENT VIA TRACH. PATIENT IS ON THE FOLLOWING SETTINGS THAT ARE CHARTED ON THE MECHANICAL VENT NOTES. TRACH TUBE IS PATENT AND SECURED WITH TRACH TIES. SUCTIONED SMALL AMOUNTS OF YELLOWISH AND PINK TINGED SECRETIONS. TRACH CARE DONE. HME CHANGED. VENT ALARMS CHECKED AND THEY ARE ON AND AUDIBLE. VENT IS PLUGGED IN THE RED OUTLET. BMV AND BACK UP TRACH IS BY BEDSIDE. PATIENT IS TOLERATING CURRENT VENT SETTINGS WELL AT THIS TIME. WILL CONTINUE TO MONITOR PT.
--- NOTE | 2019-01-02 19:30 | NUR ---
rounds made patient in bed .eyes open ,no s/s pain no facial grimace ,body relax , tolerating trach no respiratory distress saturation 99% rr 18. hob up . suction via trach and via mouth . checked peg .toelrating tf no residual .fluses well . f/c to bsd . afebrile tep 99.2 orally . continue to monitor v/s and pain levels and continue to give meds and observed isolation precaution .
[2019-01-03] VITALS (18 sets, daily range): BP systolic 117–173; BP diastolic 70–99
[2019-01-03] MEDS: BLOOD SUGAR DIAGNOSTIC 1 EACH STRIP VI SCH ×4 (00:37→18:26)
[2019-01-03] MEDS: IV NORMAL SALINE 250 ML IV PRN (04:13)
--- NOTE | 2019-01-03 05:06 | NUR ---
PT ON CONT GALINDO VENT WITH TRACH IN PLACE AND SECURED, WITH SAME CURRENT VENT SETTINGS, PT DOES ASSIST AT TIMES, WITH GOOD COUGH EFFORT, SUCTIONED BLOODY TINGE SECRETINS, WITH NS LAVAGE, NO VENT CHANGES MADE, AMBU BAG AT BEDSIDE, AL VENT ALARMS GOOD, TRACH CARE DONE, CHECK CUFF, CHANGE HME. Luisa GUERRAP Addendum: 01/03/19 at 0508 by BUBBA MARTÍNEZ RT Amended: Links added.
[2019-01-03] MEDS: hydrALAZINE HCL 50 MG TABLET GT SCH ×3 (05:22→21:26)
[2019-01-03] MEDS: MEROPENEM 1 G in IV NORMAL SALINE 100 ML IV SCH ×3 (05:23→21:09)
--- NOTE | 2019-01-03 06:24 | NUR ---
patient had a stable night . tolerating vent setting no respiratory distress noted . v/s with in normal limits afebrile .am care done bath patient ,changed soiled linens and gown,oral care done suction via mouth and via trach . Nunn care done . turned and reposition .
[2019-01-03 06:50] LABS: BASOPHILS % (AUTO) 0.5 % (0.0-2.0); EOSINOPHILS # (AUTO) 0.5 K/uL (0.0-0.7); EOSINOPHILS % (AUTO) 6.5 % (0.0-7.0); HEMATOCRIT 25.1 % (36.7-47.1); HEMOGLOBIN 8.1 g/dL (12.5-16.3); LYMPHOCYTES % (AUTO) 14.6 % (20.5-51.5); MEAN CORPUSCULAR HEMOGLOBIN 27.4 uug (23.8-33.4); MEAN CORPUSCULAR HGB CONC 32 g/dL (32.5-36.3); MEAN CORPUSCULAR VOLUME 84.9 fL (73.0-96.2); MONOCYTES # (AUTO) 0.5 K/uL (2.0-10.0); MONOCYTES % (AUTO) 6.7 % (0.0-11.0); NEUTROPHILS # (AUTO) 5.1 K/uL (1.8-8.9); NEUTROPHILS % (AUTO) 71.7 % (38.5-71.5); PLATELET COUNT (AUTO) 274 K/uL (152-348); RED BLOOD CELL COUNT(AUTO) 2.96 MIL/uL (4.06-5.63); WHITE BLOOD COUNT (AUTO) 7.1 K/uL (3.6-10.2)
--- NOTE | 2019-01-03 07:05 | NUR ---
PT RECEIVED TRACH TO VENT ON CMV, PORTEX #8 TRACH IS PATENT AND SECURE. PT IS ON A GALINDO VENT ON SETTINGS OF A/C 18, VT 400, PEEP +5, AND 30% FIO2. VENT PARAMETERS AND ALARMS CHECKED, ALARMS ARE AUDIBLE. PT IS TOLERATING VENT WELL, NO SOB NOTED. BVM AND BACK-UP TRACH AT BEDSIDE. VENT PLUGGED INTO RED OUTLET. SUCTION PRN. WILL CONTINUE TO MONITOR.
[2019-01-03 07:09] LABS: CREATININE 1.7 mg/dL (0.6-1.3); POTASSIUM 4.5 mmol/L (3.5-5.1); VANCOMYCIN,RANDOM 13.3 ug/mL (18.0-26.0)
[2019-01-03] MEDS ORDERED: VANCOMYCIN IV 1,000 MG in IV DEXTROSE 5% 250 ML IV ONE (08:00)
--- NOTE | 2019-01-03 08:56 | NUR ---
CLINICAL PHARMACY NOTE:VANCOMYCIN DOSING S To continue vancomycin dosing on 43 y/o male bedbound patient for suspected infection (spiked fever while on Bactrim IV) O temp 98.6 F BUN 24 Scr 1.8 WBC 9.1 Vanco random on 12/31 at 0600: 13.8 Vanco random on 01/01 at 0600: 20.5 Vanco random on 01/03 at 0600: 13.3 Plan Since vanco random level thsi am is 13.3, will give vanco 1gm IVPB x1 today. Next random ordered for 01/04 @0600. Will follow level when available for further dosing. Will monitor.
[2019-01-03] MEDS: CHLORTHALIDONE 25 MG TABLET GT SCH (09:24)
[2019-01-03] MEDS: AMLODIPINE 5 MG TABLET GT SCH (09:28)
[2019-01-03] MEDS: SENNOSIDES 1 TABLET GT SCH ×2 (09:28→17:30)
[2019-01-03] MEDS: PANTOPRAZOLE SODIUM 40 MG VIAL IV SCH (09:28)
[2019-01-03] MEDS: CHLORHEXIDINE GLUCONATE 15 ML MOUTHWASH MM SCH ×2 (09:28→17:30)
[2019-01-03] MEDS: SODIUM HYPOCHLORITE 0.125% 473 ML BOTTLE TP SCH (09:29)
[2019-01-03] MEDS: NYSTATIN POWDER 15 GM BOTTLE TOP SCH ×2 (09:29→21:04)
[2019-01-03] MEDS: Z GUARD REMEDY PASTE 57 GM TUBE TOP SCH ×2 (09:29→21:01)
[2019-01-03] MEDS: OSMOLITE 1.2 CAL 1,000 ML LIQUID GT PRN (10:38)
[2019-01-03] MEDS: CLONIDINE-TTS 1 PATCH TD SCH (11:09)
[2019-01-03] MEDS: HYDROCODONE/APAP 5-325MG TABLET GT PRN (11:09)
[2019-01-03] MEDS: INSULIN REGULAR, HUMAN 300 UNIT/3 ML VIAL SQ PRN ×2 (13:15→18:31)
[2019-01-04] VITALS (7 sets, daily range): BP systolic 115–144; BP diastolic 76–85
[2019-01-04] MEDS: BLOOD SUGAR DIAGNOSTIC 1 EACH STRIP VI SCH ×4 (00:34→17:50)
[2019-01-04] MEDS: INSULIN REGULAR, HUMAN 300 UNIT/3 ML VIAL SQ PRN (00:37)
--- NOTE | 2019-01-04 01:31 | NUR ---
PT ON CONT GALINDO VENT WITH TRACH IN PLACE ,SECURED, WITH SAME CURRENT VENT SETTINGS, PT DOES ASSIST AT TIMES , SUCTIONED BLOODY TINGE SECRETIONS, WITH NS LAVAGE, NO VENT CHANGES MADE, PT STABLE, TRACH CARE DONE, ALL VENT ALARMS GOOD, SAT 100%, AMBU BAG AT BEDSIDE.Luisa GUERRAP Addendum: 01/04/19 at 0137 by BUBBA MARTÍNEZ RT Amended: Links added.
[2019-01-04] MEDS: IV NORMAL SALINE 250 ML IV PRN (04:56)
[2019-01-04] MEDS: MEROPENEM 1 G in IV NORMAL SALINE 100 ML IV SCH ×3 (05:25→21:24)
[2019-01-04] MEDS: hydrALAZINE HCL 50 MG TABLET GT SCH ×3 (05:25→21:24)
[2019-01-04 05:40] LABS: BASOPHILS % (AUTO) 0.7 % (0.0-2.0); EOSINOPHILS # (AUTO) 0.5 K/uL (0.0-0.7); HEMATOCRIT 24.5 % (36.7-47.1); MEAN CORPUSCULAR HEMOGLOBIN 27.7 uug (23.8-33.4); MEAN CORPUSCULAR HGB CONC 32 g/dL (32.5-36.3); MEAN CORPUSCULAR VOLUME 85.3 fL (73.0-96.2); MONOCYTES # (AUTO) 0.5 K/uL (2.0-10.0); MONOCYTES % (AUTO) 8.2 % (0.0-11.0); NEUTROPHILS # (AUTO) 3.9 K/uL (1.8-8.9); NEUTROPHILS % (AUTO) 65.1 % (38.5-71.5); PLATELET COUNT (AUTO) 311 K/uL (152-348); RED BLOOD CELL COUNT(AUTO) 2.88 MIL/uL (4.06-5.63)
[2019-01-04 05:58] LABS: CREATININE 1.5 mg/dL (0.6-1.3); POTASSIUM 4.5 mmol/L (3.5-5.1); VANCOMYCIN,RANDOM 21.4 ug/mL (18.0-26.0)
--- NOTE | 2019-01-04 07:40 | NUR ---
CLINICAL PHARMACY NOTE:VANCOMYCIN DOSING S To continue vancomycin dosing on 43 y/o male bedbound patient for suspected infection (spiked fever while on Bactrim IV) O temp 98.2 F BUN 24 Scr 1.5 WBC 6.0 Vanco random on 12/31 at 0600: 13.8 Vanco random on 01/01 at 0600: 20.5 Vanco random on 01/03 at 0600: 13.3 Vanco random on 01/04 at 0600: 21.4 Plan Due to unstable srcr, will continue to dose by random level. vanco random level this am is 21.4, it is expected to be below 20 mcg/ml this afternoon, thus, will give vanco 1gm IVPB x1 today at 1500. Pharmacy shall review srcr in am & decide when to order next random level for further dosing. Will monitor.
[2019-01-04] MEDS: CHLORHEXIDINE GLUCONATE 15 ML MOUTHWASH MM SCH ×2 (08:32→17:37)
[2019-01-04] MEDS: PANTOPRAZOLE SODIUM 40 MG VIAL IV SCH (08:32)
[2019-01-04] MEDS: SENNOSIDES 1 TABLET GT SCH ×2 (08:33→17:37)
[2019-01-04] MEDS: Z GUARD REMEDY PASTE 57 GM TUBE TOP SCH ×2 (08:33→20:42)
[2019-01-04] MEDS: AMLODIPINE 5 MG TABLET GT SCH (08:33)
[2019-01-04] MEDS: NYSTATIN POWDER 15 GM BOTTLE TOP SCH ×2 (08:34→20:40)
[2019-01-04] MEDS: SODIUM HYPOCHLORITE 0.125% 473 ML BOTTLE TP SCH (08:34)
[2019-01-04] MEDS: CHLORTHALIDONE 25 MG TABLET GT SCH (08:35)
--- NOTE | 2019-01-04 09:32 | NUR ---
Dr. Shipley here to see pt. Full report given. New orders received.
[2019-01-04] MEDS: OSMOLITE 1.2 CAL 1,000 ML LIQUID GT PRN (10:21)
[2019-01-04] MEDS ORDERED: VANCOMYCIN IV 1,000 MG in IV DEXTROSE 5% 250 ML IV ONE (15:00)
--- NOTE | 2019-01-04 16:57 | NUR ---
CARLOS Johnson here to see pt. Full report given. No new orders received.
--- NOTE | 2019-01-04 20:00 | NUR ---
RECEIVED PT. OPENS HIS EYES TO VERBAL STIMULI. TRACH TO VENT W/ AC-18. TV-400, FIO2-30%, PEEP-+5 W/ O2 SAT OF 100%. G-TUBE INTACT, CHECKED RESIDUAL 5CC NOTED. TUBE FDG OSMOLITE 1.2 @ 60CC/HR. PICC LINE ON CEFERINO. NS @ TKO RATE FOR IVPB MEDS. TEMP-99.0. TYLENOL 1000MG GIVEN VIA G-TUBE. REPOSITIONED ON HIS BACK W/ HOB ELEVATED.
--- NOTE | 2019-01-04 23:00 | NUR ---
TRANSFERED PT. TO 312 VIA BED. REPORT GIVEN TO SRI CASAS FOR CONTINUITY OF CARE.
--- NOTE | 2019-01-04 23:05 | NUR ---
RECEIVED PT ON GALINDO VENTILATOR VIA TRACH. PT IS ON THE FOLLOWING SETTINGS THAT ARE CHARTED ON THE MECHANICAL VENTILATOR NOTES. TRANSPORTED PT FROM CCU TO 3RD FLOOR (ROOM 312) VIA VENT WITH ASSISTANCE FROM RT BUBBA Noel. NO INCIDENT DURING AND AFTER TRANSPORT. PLACED PULSE OXIMETER BY PT'S BEDSIDE. TRACH TUBE IS PATENT AND SECURED WITH TRACH TIES. SUCTIONED SMALL AMOUNTS OF THICK YELLOW AND PINK TINGED SECRETIONS. RN IS AWARE OF SECRETIONS. TRACH CARE DONE. HME CHANGED. VENTILATOR ALARMS CHECKED AND THEY ARE ON AND AUDIBLE. VENTILATOR IS PLUGGED IN THE RED OUTLET. BMV AND BACK UP TRACH IS BY BEDSIDE. PT IS TOLERATING CURRENT VENTILATOR SETTINGS WELL AT THIS TIME. WILL CONTINUE TO MONITOR PT.
--- NOTE | 2019-01-05 | NUR ---
Report received. Patient with trache Portex#8 to vent; settings as follows: AC=18, FIO2=30%, SF=764 ml, PEEP=5 cm. NAD noted. Eyes open, tracks?, with mild nystagmus. Doesn't follow any commands. GT feedings at 60 ml/H; tolerated well. Assessment completed. Addendum: 01/05/19 at 0414 by SRI KHAN RN Amended: Links added.
[2019-01-05] MEDS: BLOOD SUGAR DIAGNOSTIC 1 EACH STRIP VI SCH ×5 (00:07→23:54)
[2019-01-05] MEDS: IV NORMAL SALINE 250 ML IV PRN (02:41)
[2019-01-05 04:00] VITALS: BP 152/71
[2019-01-05] MEDS: MEROPENEM 1 G in IV NORMAL SALINE 100 ML IV SCH ×2 (05:12→14:23)
[2019-01-05] MEDS: hydrALAZINE HCL 50 MG TABLET GT SCH ×3 (05:13→21:39)
[2019-01-05 05:57] LABS: CREATININE 1.5 mg/dL (0.6-1.3)
[2019-01-05 06:11] LABS: BASOPHILS % (AUTO) 0.7 % (0.0-2.0); EOSINOPHILS # (AUTO) 0.5 K/uL (0.0-0.7); EOSINOPHILS % (AUTO) 8.2 % (0.0-7.0); HEMATOCRIT 24.1 % (36.7-47.1); LYMPHOCYTES # (AUTO) 1.3 K/uL (20.0-40.0); LYMPHOCYTES % (AUTO) 19.6 % (20.5-51.5); MEAN CORPUSCULAR HEMOGLOBIN 28.2 uug (23.8-33.4); MEAN CORPUSCULAR HGB CONC 33 g/dL (32.5-36.3); MONOCYTES # (AUTO) 0.6 K/uL (2.0-10.0); MONOCYTES % (AUTO) 8.7 % (0.0-11.0); NEUTROPHILS # (AUTO) 4.1 K/uL (1.8-8.9); NEUTROPHILS % (AUTO) 62.8 % (38.5-71.5); PLATELET COUNT (AUTO) 322 K/uL (152-348); RED BLOOD CELL COUNT(AUTO) 2.84 MIL/uL (4.06-5.63); WHITE BLOOD COUNT (AUTO) 6.6 K/uL (3.6-10.2)
--- NOTE | 2019-01-05 06:30 | NUR ---
Stable all night; NAD. Tolerated GT feedings; no residual. Off 0600 to restart at 1000. Contact isolation maintained. Addendum: 01/05/19 at 0733 by SRI KHAN RN Amended: Links added.
[2019-01-05] MEDS: PANTOPRAZOLE SODIUM 40 MG VIAL IV SCH (08:46)
[2019-01-05] MEDS: CHLORTHALIDONE 25 MG TABLET GT SCH (08:47)
[2019-01-05] MEDS: AMLODIPINE 5 MG TABLET GT SCH (08:51)
[2019-01-05] MEDS: SENNOSIDES 1 TABLET GT SCH ×2 (08:53→16:36)
[2019-01-05] MEDS: NYSTATIN POWDER 15 GM BOTTLE TOP SCH ×2 (09:08→21:40)
[2019-01-05] MEDS: Z GUARD REMEDY PASTE 57 GM TUBE TOP SCH ×2 (09:09→20:38)
[2019-01-05] MEDS: SODIUM HYPOCHLORITE 0.125% 473 ML BOTTLE TP SCH (09:09)
[2019-01-05] MEDS: CHLORHEXIDINE GLUCONATE 15 ML MOUTHWASH MM SCH ×2 (09:19→16:40)
[2019-01-05] MEDS: OSMOLITE 1.2 CAL 1,000 ML LIQUID GT PRN (10:04)
[2019-01-05] MEDS: EPOETIN ALFA 10,000 UNITS/ML VIAL SQ SCH (10:06)
[2019-01-05 11:42] VITALS: BP 141/77
--- NOTE | 2019-01-05 14:43 | NUR ---
CLINICAL PHARMACY NOTE:VANCOMYCIN DOSING S To continue vancomycin dosing on 43 y/o male bedbound patient for suspected infection (spiked fever while on Bactrim IV) O temp 98.2 F BUN 24 Scr 1.5 WBC 6.0 Vanco random on 12/31 at 0600: 13.8 Vanco random on 01/01 at 0600: 20.5 Vanco random on 01/03 at 0600: 13.3 Vanco random on 01/04 at 0600: 21.4 Plan Due to unstable srcr, will continue to dose by random level. Vanco 1gm IVPB x1 was given yesterday at 1500. Another Vancomycin random level is on order for tonight at 1800. Will follow the level for further dosing. Addendum: 01/05/19 at 1938 by BUBBA BRO Random level at 1800 20.2. No vancomycin today. Will order random level for 0600
[2019-01-05] MEDS ORDERED: RXVAN XX (15:39)
[2019-01-05] MEDS ORDERED: SODI473S8 TP (15:39)
[2019-01-05] MEDS ORDERED: LACT-89 GT (15:39)
[2019-01-05] MEDS ORDERED: NYST15PO4 TOP (15:39)
[2019-01-05 16:28] VITALS: BP 126/72
[2019-01-05] MEDS ORDERED: PNEUMOCOCCAL 23-VAL P-SAC VAC 0.5 ML VIAL IM ONE (17:15)
--- NOTE | 2019-01-05 17:36 | NUR ---
report given to Danelle CASAS [facility]
[2019-01-05 19:51] VITALS: BP 135/72
[2019-01-05 20:00] VITALS: BP 135/72
--- NOTE | 2019-01-05 20:00 | NUR ---
Received patient lying in bed. Patient able to nod head at times when spoken to. No signs or symptoms of pain or SOB at this time.. NSR on tele at 70/min. PICC line on right upper arm intact and patent. Isolation precaution observed. Nunn catheter intact and draining via gravity. GT feeding ongoing. Dressing on abdominal area intact and clean. Trach with vent in place. Safety measure initiated. Continue to monitor.
[2019-01-05] MEDS: INSULIN REGULAR, HUMAN 300 UNIT/3 ML VIAL SQ PRN (23:56)
[2019-01-06] VITALS: BP 140/80
[2019-01-06 00:23] VITALS: BP 140/80
[2019-01-06 04:10] VITALS: BP 138/75
[2019-01-06] MEDS: OSMOLITE 1.2 CAL 1,000 ML LIQUID GT PRN (04:33)
[2019-01-06] MEDS: hydrALAZINE HCL 50 MG TABLET GT SCH (05:18)
[2019-01-06] MEDS: BLOOD SUGAR DIAGNOSTIC 1 EACH STRIP VI SCH ×2 (05:32→12:46)
[2019-01-06] MEDS: INSULIN REGULAR, HUMAN 300 UNIT/3 ML VIAL SQ PRN ×2 (05:34→12:48)
--- NOTE | 2019-01-06 06:26 | NUR ---
Patient non-verbal, nod head at times when spoken to. No signs or symptoms of pain or SOB at this time. NSR on tele at 65/min. PICC line on right upper arm intact and patent. Isolation precaution maintained. Nunn catheter intact and draining via gravity. GT feeding/flushing well tolerated. Dressing on abdominal area remains intact and clean. Trach with vent in place. Safety measure maintained. Continue to monitor.
--- NOTE | 2019-01-06 07:20 | NUR ---
Patient non-verbal, But alert to name and responds with head nods. No signs or symptoms of pain or SOB at this time. NSR on tele at 72/min. PICC line on right upper arm intact and patent. Isolation precaution maintained. Nunn catheter intact and draining via gravity.GT off at this time no residual. Dressing on abdominal area remains intact and clean. Trach with vent in place. Safety measure maintained. Continue to monitor.
[2019-01-06 07:56] VITALS: BP 140/68
[2019-01-06] MEDS ORDERED: VANCOMYCIN IV 1,000 MG in IV DEXTROSE 5% 250 ML IV ONE (09:00)
[2019-01-06] MEDS: HYDROCODONE/APAP 5-325MG TABLET GT PRN (09:17)
[2019-01-06] MEDS: PANTOPRAZOLE SODIUM 40 MG VIAL IV SCH (09:17)
[2019-01-06] MEDS: CHLORTHALIDONE 25 MG TABLET GT SCH (09:17)
[2019-01-06] MEDS: SENNOSIDES 1 TABLET GT SCH (09:18)
[2019-01-06] MEDS: CHLORHEXIDINE GLUCONATE 15 ML MOUTHWASH MM SCH (09:18)
[2019-01-06] MEDS: Z GUARD REMEDY PASTE 57 GM TUBE TOP SCH (09:18)
[2019-01-06] MEDS: AMLODIPINE 5 MG TABLET GT SCH (09:18)
[2019-01-06] MEDS: NYSTATIN POWDER 15 GM BOTTLE TOP SCH (09:18)
[2019-01-06] MEDS: SODIUM HYPOCHLORITE 0.125% 473 ML BOTTLE TP SCH (09:18)
--- NOTE | 2019-01-06 10:00 | NUR ---
Wound care performed, minimal bleeding noted at the site. Packed and covered with abd pad and closed with abdominal binder.
--- NOTE | 2019-01-06 11:40 | NUR ---
CLINICAL PHARMACY NOTE:VANCOMYCIN DOSING S To continue vancomycin dosing on 43 y/o male bedbound patient for suspected infection (spiked fever while on Bactrim IV) O temp 98.9 F BUN 24 (01/05) Scr 1.5 (01/05) WBC 6.0 (01/05) Vanco random on 12/31 at 0600: 13.8 Vanco random on 01/01 at 0600: 20.5 Vanco random on 01/03 at 0600: 13.3 Vanco random on 01/04 at 0600: 21.4 Vanco random on 01/05 @1800: 20.2 Vanco random on 01/06 @ 0600: 16.3 Plan Will dose vanco 1gm today at 0900 per random level. Next random ordered for tomorrow with am labs. Will follow level when available and re-dose as needed. Will follow
[2019-01-06 11:55] VITALS: BP 126/66
--- NOTE | 2019-01-06 13:06 | NUR ---
Contacted facility to give report and spoke to miguel. It was stated that report was received already and if any questions they will contact the charge nurse here. Phone number given and patient is ready to be transported.
--- NOTE | 2019-01-06 13:30 | NUR ---
Spoke with liliana to give an update to yesterdays report. patient currently in [facility] and on the way out to facility.
== END 2019-01-06 13:30 | DRG 951 ==
LOC: ER 14:40 → TELE-TD3 17:26 → CCU 12-12 19:55 → TELE-TD3 12-14 08:05 → CCU 12-15 15:45 → DOU3 12-23 14:00 → TELE-TD3 12-23 15:06 → CCU 12-25 01:15 → TELE-TD3 01-04 23:00
PROVIDERS: ADMIT Internal Medicine; ATTEND Internal Medicine
PROC: 30233N1 Transfusion of Nonautologous Red Blood Cells into Peripheral Vein, Percutaneous Approach (ICD-10-PCS; principal; 2018-12-10)
PROC: 5A1955Z Respiratory Ventilation, Greater than 96 Consecutive Hours (ICD-10-PCS; principal; 2018-12-10)
PROC: 0KBL0ZZ Excision of Left Abdomen Muscle, Open Approach (ICD-10-PCS; 2018-12-12)
PROC: 0KBK0ZZ Excision of Right Abdomen Muscle, Open Approach (ICD-10-PCS; 2018-12-12)
PROC: 0KBL0ZZ Excision of Left Abdomen Muscle, Open Approach (ICD-10-PCS; 2018-12-18)
PROC: 0KBK0ZZ Excision of Right Abdomen Muscle, Open Approach (ICD-10-PCS; 2018-12-18)
PROC: 0W9F3ZZ Drainage of Abdominal Wall, Percutaneous Approach (ICD-10-PCS; 2018-12-18)
PROC: 0DH63UZ Insertion of Feeding Device into Stomach, Percutaneous Approach (ICD-10-PCS; 2018-12-28)
DX: K94.22 Gastrostomy infection (principal); J96.21 Acute and chronic respiratory failure with hypoxia; A41.59 Other Gram-negative sepsis; E43 Unspecified severe protein-calorie malnutrition; G93.1 Anoxic brain damage, not elsewhere classified; Z99.11 Dependence on respirator [ventilator] status; J18.1 Lobar pneumonia, unspecified organism; G93.41 Metabolic encephalopathy; R65.20 Severe sepsis without septic shock; J96.10 Chronic respiratory failure, unspecified whether with hypoxia or hypercapnia; N17.9 Acute kidney failure, unspecified; N18.3 Chronic kidney disease, stage 3 (moderate); K94.23 Gastrostomy malfunction; Z93.0 Tracheostomy status; L02.211 Cutaneous abscess of abdominal wall; Y83.8 Other surgical procedures as the cause of abnormal reaction of the patient, or of later complication, without mention of misadventure at the time of the procedure; Y92.129 Unspecified place in nursing home as the place of occurrence of the external cause; B96.1 Klebsiella pneumoniae [K. pneumoniae] as the cause of diseases classified elsewhere; Z68.25 Body mass index [BMI] 25.0-25.9, adult; E11.22 Type 2 diabetes mellitus with diabetic chronic kidney disease; D63.1 Anemia in chronic kidney disease; E87.1 Hypo-osmolality and hyponatremia; E87.8 Other disorders of electrolyte and fluid balance, not elsewhere classified; R53.2 Functional quadriplegia; E03.9 Hypothyroidism, unspecified; I45.10 Unspecified right bundle-branch block; D68.69 Other thrombophilia; E87.0 Hyperosmolality and hypernatremia; H55.09 Other forms of nystagmus; I70.0 Atherosclerosis of aorta; I13.10 Hypertensive heart and chronic kidney disease without heart failure, with stage 1 through stage 4 chronic kidney disease, or unspecified chronic kidney disease; L89.322 Pressure ulcer of left buttock, stage 2; J90 Pleural effusion, not elsewhere classified; R13.10 Dysphagia, unspecified; J98.11 Atelectasis; S06.5X9S Traumatic subdural hemorrhage with loss of consciousness of unspecified duration, sequela; X58.XXXS Exposure to other specified factors, sequela; T79.7XXA Traumatic subcutaneous emphysema, initial encounter; X58.XXXA Exposure to other specified factors, initial encounter; Z79.4 Long term (current) use of insulin; Z87.440 Personal history of urinary (tract) infections; R74.0 Nonspecific elevation of levels of transaminase and lactic acid dehydrogenase [LDH]; R13.19 Other dysphagia; B37.49 Other urogenital candidiasis
CPT/HCPCS: 36415; 36569; 36600; 70030-TC; 70450; 71045; 76604; 76705; 82533; 83550; 83605; 83735; 84100; 84156; 84300; 84443; 84478; 85018; 85025; 85610; 85730; 86850; 86900; 86901; 86920; 87040; 87070; 87075; 87077; 87086; 93005; 94002; 94003; 94640; 94664; A4217; A4649; A4663; A9150; C9113; G0378; J0360; J0885; J1170; J1450; J1644; J1815; J1940; J2060; J2185; J2250; J2270; J2405; J2543; J2916; J3010; J3370; J3475; J3490; J7030; J7040; J7042; J7050; J7060; J7131; P9016-BL; P9021

== ENCOUNTER 2020-10-25 23:26 | Inpatient (IN) | payer MEDICAID ==
[~2020-10-25] VITALS: Ht 165.1 cm; Wt 58.1 kg
[~2020-10-25 23:26] MED LIST: ACET-2154 GT; ACET-2605 GT; ALBU2.5V38 IH; AMLO-212 GT; ARGI1POW17 GT; ASCO500P18 GT; ATROVENT IH; BISA10SU61 RC; CHLO25TA2 GT; CHLO473M3 PO; CHLO473M3 TOP; CRAN3875 GT; EPOE1VIA6 SQ; HYDR-3326 GT; HYDR-4077 GT; INSU100V39 SQ; INSU100V7 SQ; LABE200T5 GT; LACT-89 GT; MAGN400O6 GT; MULT-213 GT; NA P133E RC; NYST15PO4 TOP; OMEP20TA5 GT; ONDA4TAB5 GT; RXVAN XX; SENN-18 GT; SODI473S8 TP
--- NOTE | 2020-10-26 00:04 | NUR ---
PATIENT DIRECT ADMIT FROM WINSOME, ,PT WITH PORTEX # [address] AND SECURED, WITH CURRENT SETTINGS, A/C 12, VT 450ML, 35%, PEEP5, PT DOES ASSIST AT TIMES, NO VERBAL RESPONSE, SUCTIONED LIGHT PALE YELL TINGE SECRETIONS, GOOD COUGH EFFORT, SPRAGUE AND HME IN PLACE, NO VENT CHANGES MADE AT THIS TIME, PT WITH CONT PULSE OXY IN PLACE, SAT 100%, HR 70 APPROX, VENT PLUGGED IN TO RED WALL OUT GEETA MARTÍNEZ DATA INTEGRITY SPECIALIST Addendum: 10/26/20 at 0007 by BUBBA MARTÍNEZ RT Amended: Links added.
[2020-10-26] MEDS ORDERED: QUET50TA GT (00:08)
[2020-10-26] MEDS ORDERED: IPRA0.2S48 NEB (00:08)
[2020-10-26] MEDS ORDERED: ALBU2.5V38 NEB (00:08)
[2020-10-26] MEDS ORDERED: DOCU100C36 GT (00:08)
[2020-10-26] MEDS ORDERED: HYDR-4209 GT (00:08)
[2020-10-26] MEDS ORDERED: ZINC220C6 GT (00:08)
[2020-10-26] MEDS ORDERED: VALP250S4 GT (00:08)
[2020-10-26] MEDS ORDERED: LACT10SO58 GT (00:08)
[2020-10-26] MEDS ORDERED: POLY17PO4 GT (00:08)
[2020-10-26] MEDS ORDERED: AZAT50TA18 GT (00:08)
[2020-10-26] MEDS ORDERED: PANT40SU2 GT (00:08)
--- NOTE | 2020-10-26 00:10 | NUR ---
Direct admission [facility]; VS stable; per HARPOON ENGAGEMENT PLANNING OPERATOR pt had a bolus of NS, Fortaz and Flagyl given; skin surveillance done; photos of wound in chart; will reposition q2h; WCRN eval will be ordered; low air loss mattress to be ordered as well;
[2020-10-26] MEDS ORDERED: NEPRO GT (00:12)
[2020-10-26] MEDS ORDERED: NEPRO 1000 ML GT PRN (03:30)
[2020-10-26 04:05] VITALS: BP 125/75
--- NOTE | 2020-10-26 05:00 | NUR ---
GTF started; pt on seizure and aspiration precautions; had another BM; continue to monitor; continue plan of care.
--- NOTE | 2020-10-26 07:33 | NUR ---
Sleeping. Trach to vent settings of AC 12, TV 450, FIO2 35, PEEP 5. Nephro via G tube . Knowles catheter to drainage bag
[2020-10-26 07:41] VITALS: BP 128/72
[2020-10-26] MEDS ORDERED: MAGNESIUM HYDROXIDE 30 ML LIQUID UDC PO PRN (11:15)
[2020-10-26] MEDS ORDERED: ACETAMINOPHEN 325 MG TABLET PO PRN (11:15)
[2020-10-26] MEDS ORDERED: Z GUARD REMEDY PASTE 57 GM TUBE TOP PRN (11:15)
[2020-10-26] MEDS ORDERED: ONDANSETRON 4 MG/2 ML VIAL IV PRN (11:15)
[2020-10-26] MEDS ORDERED: ZOLPIDEM 5 MG TABLET GT PRN (11:15)
[2020-10-26 11:43] VITALS: BP 145/78
[2020-10-26] MEDS: IV NS 1000 ML 1,000 ML IV PRN (11:58)
--- NOTE | 2020-10-26 12:00 | NUR ---
IVF started as ordered, infusing well
[2020-10-26 12:11] LABS: HEMATOCRIT 23.5 % (36.7-47.1); MEAN CORPUSCULAR VOLUME 89.9 fL (73.0-96.2); PLATELET COUNT (AUTO) 148 K/uL (152-348)
[2020-10-26 12:22] LABS: BILIRUBIN,TOTAL 0.4 mg/dL (0.2-1.0); CREATININE 4.7 mg/dL (0.6-1.3); POTASSIUM 4.6 mmol/L (3.5-5.1); TOTAL PROTEIN, SERUM 8.2 g/dL (6.4-8.2)
[2020-10-26] MEDS: ACETAMINOPHEN 650 MG/20.3 ML LIQUID UDC GT PRN ×2 (12:52→20:02)
--- NOTE | 2020-10-26 13:00 | NUR ---
Noted grinding of teeth. Tylenol given as ordered. Repositioned comfortably.
--- NOTE | 2020-10-26 15:00 | NUR ---
Secretions suctioned. Oral care done
[2020-10-26 15:41] VITALS: BP 150/86
--- NOTE | 2020-10-26 18:23 | NUR ---
Secretions suctioned. Repositioned comfortably
[2020-10-26 20:05] VITALS: BP 147/87
[2020-10-26 21:18] LABS: *BILIRUBIN,URIN NEGATIVE (NEGATIVE); *BLOOD, URINE 2+ (NEGATIVE); *CLARITY,URINE SLIGHTLY CLOUDY (CLEAR); *COLOR,URINE YELLOW (YELLOW); *KETONES,URINE NEGATIVE (NEGATIVE); *UROBILINOGEN,URINE 0.2 E.U./dl (NORMAL); LEUKOCYTE ESTERASE ,URINE 1+ (NEGATIVE); NITRITE, URINE POSITIVE (NEGATIVE); UGLUCOSE NEGATIVE (NEGATIVE)
[2020-10-26 21:33] LABS: BACTERIA,URINE MODERATE /HPF (NONE SEEN); MUCUS,URINE FEW /LPF (0-FEW); SQUAMOUS EPITHELIAL CELL,UR FEW /HPF (NONE SEEN); URINE AMORPHOUS PHOSPHATES FEW /HPF; WBC,URINE 50-80 /HPF (0-3); YEAST,URINE FEW /HPF (NONE SEEN)
--- NOTE | 2020-10-26 22:00 | NUR ---
pt had fever at 101.1F; referred to Dr Torres; blood cx and UAc/s ordered; urine sent to lab and results relayed to her; cooling measures done as well as tylenol given; latest temp 99.5F axillary
--- NOTE | 2020-10-26 23:00 | NUR ---
PT NOW AFEBRILE AT 99F; WILL CONTINUE TO MONITOR.
[2020-10-26] MEDS ORDERED: MEROPENEM 500 MG in IV NORMAL SALINE 50 ML IV SCH (23:15)
[2020-10-26] MEDS ORDERED: VANCOMYCIN IV 1,000 MG in IV DEXTROSE 5% 250 ML IV ONE (23:45)
[2020-10-27] VITALS (7 sets, daily range): BP systolic 147–181; BP diastolic 62–91
--- NOTE | 2020-10-27 00:09 | NUR ---
PATIENT ON CONT GALINDO VENT WITH PORTEX # [address] AND SECURED, WITH CURRENT VENT SETTINGS, A/C 12, 450ML, PEEP5, FIO2 @ 35%, PT DOES ASSIST AT TIMES, GOOD COUGH EFFORT, DOES NOT FOLLOW VERBAL COMMANDS, SUCTIONED LIGHT PALE YELL TINGE SECRETIONS, CHECK CUFF, CHANGE HME, NO VENT CHANGES MADE, PULSE OXY CONT AT BEDSIDE, SAT 100% . Luisa GUERRAP Addendum: 10/27/20 at 0011 by BUBBA MARTÍNEZ RT Amended: Links added.
[2020-10-27] MEDS ORDERED: MEROPENEM 1 G VIAL IV ONE (01:31)
[2020-10-27] MEDS ORDERED: VANCOMYCIN IV 200 ML ONE (01:32)
[2020-10-27] MEDS: IV NS 1000 ML 1,000 ML IV PRN (01:48)
[2020-10-27 05:52] LABS: PLATELET COUNT (AUTO) 129 K/uL (152-348)
[2020-10-27 05:56] LABS: MEAN CORPUSCULAR HEMOGLOBIN 29.6 uug (23.8-33.4); MEAN CORPUSCULAR VOLUME 88.7 fL (73.0-96.2)
[2020-10-27 06:07] LABS: CREATININE 4.9 mg/dL (0.6-1.3); PHOSPHOROUS 7.9 mg/dL (2.5-4.9); POTASSIUM 3.9 mmol/L (3.5-5.1)
[2020-10-27 06:11] LABS: HEMATOCRIT 19.9 % (36.7-47.1)
[2020-10-27] MEDS: PANTOPRAZOLE ORAL SUSPENSION 40 MG SUSPDR.PKT GT SCH (06:14)
--- NOTE | 2020-10-27 06:22 | NUR ---
PT'S ABN LABS THIS AM: H/H 6.6/19.9; BUN/CRERAT 4.93 PHOS 7.9; RELAYED TO DR REDDY; A/W RESPONSE
[2020-10-27 06:42] LABS: BAND % (MANUAL) 4 % (0-10); EOSINOPHILS % (MANUAL) 17 % (0-8); LYMPHOCYTES % (MANUAL) 14 % (20-40); MONOCYTES % (MANUAL) 1 % (2-10); NEUTROPHILS % (MANUAL) 64 % (42-75)
[2020-10-27] MEDS ORDERED: PANTOPRAZOLE SODIUM 40 MG TABLET.DR PO SCH (07:00)
--- NOTE | 2020-10-27 07:20 | NUR ---
Received patient resting in bed. Trach to vent settings of AC 12, TV 450, FIO2 35, PEEP 5. Nunn catheter draining yellow urine. Will continue to monitor.
--- NOTE | 2020-10-27 10:02 | NUR ---
WOUND CARE CONSULT: PT PRESENTS WITH DRY WOUNDS TO LEFT HEEL AND RT ANKLE, SACRAL SCARRING AND BILATERAL MEDIAL KNEE WOUNDS, PRESENT ON ADMISSION. SURGICAL AND DPM CONSULTS CALLED TO DR HARPER AND DR FRIEDMAN. RECOMMENDATIONS MADE FOR SKIN PROTECTION. DISCUSSED WITH NURSING STAFF. PT IS ON FIRST STEP [facility]. IN AGREEMENT WITH PLAN OF CARE.
[2020-10-27] MEDS: NEPRO 1000 ML GT PRN (10:14)
[2020-10-27] MEDS: MEROPENEM 500 MG in IV NORMAL SALINE 50 ML IV SCH ×2 (11:32→23:57)
--- NOTE | 2020-10-27 16:30 | NUR ---
Blood transfusion started. Vital signs 152/63. Temp 98.0 HR 70. Will continue to monitor.
[2020-10-27] MEDS ORDERED: hydrALAZINE HCL 25 MG TABLET GT PRN (17:15)
[2020-10-27] MEDS ORDERED: OSMOLITE 1.2 CAL 1,000 ML LIQUID GT PRN (18:30)
[2020-10-27] MEDS ORDERED: IPRATROPIUM BROMIDE 0.5 MG/2.5 ML NEBU NEB PRN (18:30)
[2020-10-27] MEDS ORDERED: ONDANSETRON HCL 4 MG TABLET GT PRN (18:30)
[2020-10-27] MEDS ORDERED: ALBUTEROL SULFATE 2.5 MG/3 ML NEBU NEB PRN (18:30)
[2020-10-27] MEDS ORDERED: ACETAMINOPHEN 325 MG TABLET GT PRN (18:30)
[2020-10-27] MEDS: HYDROCODONE/APAP 5-325MG TABLET GT PRN (18:46)
--- NOTE | 2020-10-27 19:45 | NUR ---
Blood transfusion ended. BP elevated 181/89. Dr. Torres notified. No other reactions noted. Will endorse to incoming shift for continuity of care.
--- NOTE | 2020-10-27 20:48 | NUR ---
DIALYSIS STAFF CAME IN AND START DOING DIALYSIS. PATIENT TOLERATE BLOOD TRANSFUSION, NO ADVERSE REACTION NOTED, NO SOB NO CONGESTION NOTED. CONT TO MONITOR.
--- NOTE | 2020-10-27 23:50 | NUR ---
PATIENT WAS DIALYSE TOLERATE WELL, TOOK OUT 2,000 CC, BP 130/88, HR 69, R FEMORAL PERMANENT CATHETER INTACT, DRESSING WAS CHANGED BY LEGACY DIALYSIS STAFF.
[2020-10-27] MEDS: VALPROIC ACID 250 MG/5 ML LIQUID UDC GT SCH (23:57)
[2020-10-27] MEDS: QUETIAPINE FUMARATE 25 MG TABLET GT SCH (23:58)
[2020-10-27] MEDS: NYSTATIN POWDER 15 GM BOTTLE TOP SCH (23:58)
[2020-10-27] MEDS: DOCUSATE SODIUM 100 MG CAPSULE PO SCH (23:58)
[2020-10-28 00:03] VITALS: BP 130/88
--- NOTE | 2020-10-28 03:00 | NUR ---
PATIENT NOTED WITH HIGH BLOOD PRESSURE READIN/90, HR: 70 @ AROUND NOON. MEDICATIONS ADMINISTERED HYDRALAZINE, AND NORCO/FOR NON VERBAL SIGNS OF PAIN. BP DROPPED TO 144/70. WOUND CARE PERFORMED AT THIS TIME, PATIENT TOLERATED WELL, NO SIGNS OF PAIN. FREQUENT SUCTIONING DONE ON TRACH/ORAL. Addendum: 10/28/20 at 1651 by MARY SCHMITT RN CORRECT TIME IS: 1500
[2020-10-28 04:10] VITALS: BP 148/90
[2020-10-28] MEDS: PANTOPRAZOLE ORAL SUSPENSION 40 MG SUSPDR.PKT GT SCH (06:27)
[2020-10-28 06:50] LABS: HEMATOCRIT 25.9 % (36.7-47.1); MEAN CORPUSCULAR HEMOGLOBIN 30.5 uug (23.8-33.4); MEAN CORPUSCULAR VOLUME 88.2 fL (73.0-96.2); PLATELET COUNT (AUTO) 74 K/uL (152-348)
--- NOTE | 2020-10-28 06:55 | NUR ---
PATIENT AWAKE RESPONSIVE TO VERBAL STIMULI, HOB ELEVATED, NO SOB NO CHEST PAIN NOTED, WITH TRACH, VENT DEPENDENT, NO DESATURATION NOTED, PATIENT TELE MONITOR SINUS RHYTHM WITH OCCASSIONAL PVC, EVERY THIRD BEAT. ON GT FEEDING TOLERATE WELL NO RESIDUAL NO VOMITING NOTED. PATIENT R UPPER ARM PICC LINE PATENT. PATIENT R FEMORAL PERM CATH, NEW DRESSING DONE BY DIALYSIS STAFF. PATIENT BLOOD CULTURE FROM [place] CAME VIA FAX NOTIFIY MICHAEL REDDY WITH NEW ORDER AT THIS TIME. PLACE A CALL TO TO OBTAIN CONSENT FOR JORDON KNEE WOUND DEBRIDEMENT, LEFT A MESAGGE TO CALL [place] BUT NO RETURN CALL RECEIVE YET. WILL ENDORSE TO AM SHIFT. PATIENT MULTIPLE WOUNDS TX DONE CONT TO MONITOR.
[2020-10-28 07:17] LABS: CREATININE 3.3 mg/dL (0.6-1.3); POTASSIUM 3.5 mmol/L (3.5-5.1)
[2020-10-28] MEDS ORDERED: VANCOMYCIN IV 500 MG in IV DEXTROSE 5% 100 ML IV PRN (07:30)
[2020-10-28 07:53] LABS: ABG BASE EXCESS 2.8 mmol/L; ABG HCO3 25.8 mmol/L; ABG PCO2 33.3 mmHg (35.0-45.0); ABG PH 7.507 (7.350-7.450); ABG PO2 96.2 mmHg (75.0-100.0); ABG SITE LEFT BRACHIAL; ABG TOTAL HEMOGLOBIN 9.2 G/dL (13.5-18.0); COHb 1.4 % (0.5-1.5); MetHb 0.2 % (0.0-1.5); O2Hb 96.3 % (94.0-97.0); VENT MODE VENT - A/C; VT, ABG 450 mL
[2020-10-28] MEDS: ZINC SULFATE 220 MG CAPSULE GT SCH (08:43)
[2020-10-28] MEDS: VALPROIC ACID 250 MG/5 ML LIQUID UDC GT SCH ×2 (08:43→17:29)
[2020-10-28] MEDS: DOCUSATE SODIUM 100 MG CAPSULE PO SCH ×2 (08:43→20:55)
[2020-10-28] MEDS: LACTULOSE 20 G/30 ML LIQUID UDC GT SCH (08:43)
[2020-10-28] MEDS: MIRALAX 17 GM POWD.PACK GT SCH ×2 (08:45→17:29)
[2020-10-28] MEDS: AZATHIOPRINE 50 MG TABLET GT SCH (08:45)
[2020-10-28] MEDS: NYSTATIN POWDER 15 GM BOTTLE TOP SCH ×2 (08:46→22:24)
[2020-10-28] MEDS ORDERED: NEPRO GT SCH (09:00)
[2020-10-28] MEDS ORDERED: PANTOPRAZOLE ORAL SUSPENSION 40 MG SUSPDR.PKT GT SCH (09:00)
[2020-10-28] MEDS: SODIUM HYPOCHLORITE 0.125% (QUARTER STRENGTH) 473 ML BOTTLE TP SCH (10:44)
--- NOTE | 2020-10-28 10:45 | NUR ---
VERBAL CONSENT OBTAINED FOR WOUND DEBRIDEMENT FOR KNEE, SERIAL FROM BRANDI ELIZABETH/WITNESSED BY ANOTHER RN.
[2020-10-28] MEDS: MEROPENEM 500 MG in IV NORMAL SALINE 50 ML IV SCH ×2 (10:58→22:29)
[2020-10-28 11:25] VITALS: BP 162/90
[2020-10-28] MEDS: HYDROCODONE/APAP 5-325MG TABLET GT PRN ×2 (13:13→21:02)
[2020-10-28] MEDS: hydrALAZINE HCL 50 MG TABLET GT PRN (13:14)
[2020-10-28 15:49] VITALS: BP 144/84
[2020-10-28 20:06] VITALS: BP 158/86
[2020-10-28] MEDS: QUETIAPINE FUMARATE 25 MG TABLET GT SCH (20:55)
[2020-10-29 00:03] VITALS: BP 141/79
[2020-10-29 04:15] VITALS: BP 157/89
[2020-10-29] MEDS: PANTOPRAZOLE ORAL SUSPENSION 40 MG SUSPDR.PKT GT SCH (06:23)
--- NOTE | 2020-10-29 07:30 | NUR ---
REMAINS ON CONTINUOUS MECHANICAL VENTILATION VIA GALINDO VENTILATOR. VENT SETTINGS REMAIN THE SAME ORDERED. PT IS TRACHED WITH PORTEX 8 CUFFED TRACH. TRACH CARE DONE. SUCTION PRN. HME CHANGED. NO S/S OF RESPIRATORY DISTRESS NOTED. CONTINUOUS PULSE OX IS AT BEDSIDE AND IN USE. ALARMS ARE ON AND AUDIBLE. WILL CONTINUE TO MONITOR.
[2020-10-29 07:52] LABS: HEMATOCRIT 26.1 % (36.7-47.1); MEAN CORPUSCULAR HEMOGLOBIN 30.4 uug (23.8-33.4); MEAN CORPUSCULAR VOLUME 88.6 fL (73.0-96.2); PLATELET COUNT (AUTO) 99 K/uL (152-348); POTASSIUM 3.7 mmol/L (3.5-5.1)
[2020-10-29] MEDS ORDERED: MISCELLANEOUS MED GT SCH (08:00)
--- NOTE | 2020-10-29 08:15 | NUR ---
PT WITH CRITICAL BUN, RECORDED. DR BOWERS WAS NOTIFIED WITH NO NEW ORDERS. STATED THAT HE WILL ENSURE THAT HD IS DONE TOMORROW.
[2020-10-29] MEDS: AZATHIOPRINE 50 MG TABLET GT SCH (08:36)
[2020-10-29] MEDS: VALPROIC ACID 250 MG/5 ML LIQUID UDC GT SCH ×2 (08:36→16:51)
[2020-10-29] MEDS: ZINC SULFATE 220 MG CAPSULE GT SCH (08:36)
[2020-10-29] MEDS: LACTULOSE 20 G/30 ML LIQUID UDC GT SCH (08:36)
[2020-10-29] MEDS: MIRALAX 17 GM POWD.PACK GT SCH ×2 (08:36→16:51)
[2020-10-29] MEDS: DOCUSATE SODIUM 100 MG CAPSULE PO SCH (08:37)
[2020-10-29] MEDS: NYSTATIN POWDER 15 GM BOTTLE TOP SCH ×2 (08:37→20:06)
[2020-10-29] MEDS: SODIUM HYPOCHLORITE 0.125% (QUARTER STRENGTH) 473 ML BOTTLE TP SCH (08:37)
[2020-10-29] MEDS: NEPRO 1000 ML GT PRN (10:00)
[2020-10-29 11:21] VITALS: BP 155/88
[2020-10-29 12:06] LABS: HEPATITIS B SURFACE AG Negative (Negative)
[2020-10-29] MEDS: MEROPENEM 500 MG in IV NORMAL SALINE 50 ML IV SCH (12:33)
[2020-10-29 15:50] VITALS: BP 154/85
[2020-10-29] MEDS ORDERED: GENTAMICIN SULFATE INJ 120 MG in IV DEXTROSE 5% 100 ML IV ONE (18:45)
[2020-10-29] MEDS: ACETAMINOPHEN 650 MG/20.3 ML LIQUID UDC GT PRN (19:51)
[2020-10-29] MEDS ORDERED: GENTAMICIN SULFATE IV SCH (20:00)
[2020-10-29] MEDS ORDERED: DEXTROSE 5% IV SCH (20:00)
[2020-10-29] MEDS: QUETIAPINE FUMARATE 25 MG TABLET GT SCH (20:06)
[2020-10-29] MEDS: DOCUSATE SODIUM 100 MG/10 ML LIQUID UDC GT SCH (20:06)
[2020-10-29 20:25] VITALS: BP 152/90
--- NOTE | 2020-10-29 20:30 | NUR ---
PATIENT AWAKE EYES OPEN, WITH ELEVATED TEMP OF 101.2, GIVEN TYLENOL AND COOLING MEASURE. NOTIFY ANT CORRALES CERTIFIED DRUG COUNSELOR AWAITING FOR RESPONSE. PATIENT ON TELE MONITOR SINUS TACHY AT THIS TIME. PATIENT ROOM KEPT COOL AT THIS TIME. CONT TO MONITOR
--- NOTE | 2020-10-29 21:45 | NUR ---
RECHECK 98.8 AXILLARY. CONT TO MONITOR
--- NOTE | 2020-10-29 22:00 | NUR ---
LUZ MARIA HARDIN NP WAS IN THE STATION AND NOTIFY HER THAT PATIENT HAS EPISODE OF ELEVATED TEMP OF 101.3, WITH NO NEW ORDER, STATED PATIENT HAS BLOOD CULTURE DONE AND WILL WAIT FOR THE RESULTS AT THIS TIME.
[2020-10-30 00:15] VITALS: BP 140/83
[2020-10-30 04:25] VITALS: BP 143/89
[2020-10-30 06:20] LABS: HEMATOCRIT 26.3 % (36.7-47.1); MEAN CORPUSCULAR HEMOGLOBIN 29.6 uug (23.8-33.4); MEAN CORPUSCULAR VOLUME 89.3 fL (73.0-96.2); PLATELET COUNT (AUTO) 143 K/uL (152-348)
[2020-10-30] MEDS: PANTOPRAZOLE ORAL SUSPENSION 40 MG SUSPDR.PKT GT SCH (06:38)
[2020-10-30 06:45] LABS: CREATININE 4.7 mg/dL (0.6-1.3); POTASSIUM 3.6 mmol/L (3.5-5.1)
--- NOTE | 2020-10-30 08:00 | NUR ---
RECEIVED PATIENT IN BED WITH EYES OPEN NON RESPONSIVE ALL NEEDS ANTICIPATED AND SATISFIED HE HAS A TRACH AND VENT SUCTIONED NEEDED TELE IS SR TO ST GT PATENT WITH FEEDINGS ORDERED WITH NO GASTRIC RESIDUAL AT THIS TIME TURNED AND REPOSITIONED MULTIPLES SCABBED AREAS RIGHT KNEE WITH PARTIAL THICKNESS WITH TREATMENT IN PROGRESS ORDERED RIGHT FEMORAL PERMA CATH REMAINS INTACT LEY CATH TO GRAVITY DRAINGE NO HEMATURIA MADE COMFORTABLE NOT IN DISTRESS AT THIS TIME.
--- NOTE | 2020-10-30 08:10 | NUR ---
Pt received in bed, laying semi-Dumont's, unable to communicate.. Trach: Portex [address] and secure with tie.. Continuous mechanical ventilation with vent: Merida, settings: A/C 12, Vt 450, PEEP +5, FiO2 35%, tolerating well, will continue to monitor..
[2020-10-30] MEDS: VALPROIC ACID 250 MG/5 ML LIQUID UDC GT SCH ×2 (08:29→16:32)
[2020-10-30] MEDS: MIRALAX 17 GM POWD.PACK GT SCH ×2 (08:29→16:32)
[2020-10-30] MEDS: DOCUSATE SODIUM 100 MG/10 ML LIQUID UDC GT SCH ×2 (08:29→20:42)
[2020-10-30] MEDS: LACTULOSE 20 G/30 ML LIQUID UDC GT SCH (08:29)
[2020-10-30] MEDS: ZINC SULFATE 220 MG CAPSULE GT SCH (08:29)
[2020-10-30] MEDS: AZATHIOPRINE 50 MG TABLET GT SCH (08:30)
[2020-10-30] MEDS: NYSTATIN POWDER 15 GM BOTTLE TOP SCH ×2 (09:23→21:09)
[2020-10-30] MEDS: SODIUM HYPOCHLORITE 0.125% (QUARTER STRENGTH) 473 ML BOTTLE TP SCH (09:23)
[2020-10-30] MEDS: NEPRO 1000 ML GT PRN (11:29)
[2020-10-30 11:44] VITALS: BP 163/90
[2020-10-30 13:31] VITALS: BP 124/92
--- NOTE | 2020-10-30 13:32 | NUR ---
DIALYSIS DONE AND COMPLETED ORDERED AND OUTPUT IS 2000 ML POST DIALYSIS BLOOD PRESSURE IS 124/92 WITH HR OF 94 PATIENT TOLERATED PROCEDURE WELL WILL CONTINUE TO OBSERVE.
[2020-10-30 15:11] VITALS: BP 121/85
--- NOTE | 2020-10-30 18:00 | NUR ---
GT FEEDINGS REMAIN IN PROGRESS ORDERED WITH NO REGURGITATION OR EMESIS AT THIS TIME REPOSITIONED Q2H MADE COMFORTABLE WILL OBSERVE.
[2020-10-30 20:00] VITALS: BP 138/78
[2020-10-30] MEDS: QUETIAPINE FUMARATE 25 MG TABLET GT SCH (20:42)
[2020-10-30] MEDS: HYDROCODONE/APAP 5-325MG TABLET GT PRN (20:42)
[2020-10-31] VITALS: BP 125/71
[2020-10-31] MEDS: ACETAMINOPHEN 650 MG/20.3 ML LIQUID UDC GT PRN (01:03)
[2020-10-31 04:00] VITALS: BP 136/79
[2020-10-31] MEDS: PANTOPRAZOLE ORAL SUSPENSION 40 MG SUSPDR.PKT GT SCH (06:31)
[2020-10-31 07:17] LABS: HEMATOCRIT 26.2 % (36.7-47.1); MEAN CORPUSCULAR HEMOGLOBIN 29.6 uug (23.8-33.4); MEAN CORPUSCULAR VOLUME 89.6 fL (73.0-96.2); PLATELET COUNT (AUTO) 209 K/uL (152-348)
[2020-10-31 07:31] LABS: CREATININE 3.2 mg/dL (0.6-1.3); PHOSPHOROUS 4.4 mg/dL (2.5-4.9); POTASSIUM 3.9 mmol/L (3.5-5.1)
--- NOTE | 2020-10-31 08:00 | NUR ---
AWAKE ON FIRST STEP STEVE WITH TRACH AND VENTED PER SETTINGS FROM PROVIDER WITH NO SHORTNESS OF BREATH AT THIS TIME HOB UP WITH GT FEEDINGS IN PROGRESS ORDERED WITH NO REGURGITATION AT THIS TIME.PATIENT IS CONFUSSED DISORIENTED AND TOTALLY DEPENDENT ON NURSES FOR ALL ADL TURNED AND REPOSITION FOR PROPER BODY ALLIGNMENT RIGHT KNEE WITH TREATMENT IN PROGRESS ORDERED AFEBRILE MADE COMFORTABLE WILL CONTINUE TO OBSERVE
[2020-10-31] MEDS: LACTULOSE 20 G/30 ML LIQUID UDC GT SCH (08:19)
[2020-10-31] MEDS: DOCUSATE SODIUM 100 MG/10 ML LIQUID UDC GT SCH ×2 (08:19→20:46)
[2020-10-31] MEDS: MIRALAX 17 GM POWD.PACK GT SCH ×2 (08:19→16:21)
[2020-10-31] MEDS: VALPROIC ACID 250 MG/5 ML LIQUID UDC GT SCH ×2 (08:19→16:21)
[2020-10-31] MEDS: AZATHIOPRINE 50 MG TABLET GT SCH (08:20)
[2020-10-31] MEDS: ZINC SULFATE 220 MG CAPSULE GT SCH (08:20)
[2020-10-31] MEDS: NYSTATIN POWDER 15 GM BOTTLE TOP SCH ×2 (08:21→22:34)
[2020-10-31] MEDS: SODIUM HYPOCHLORITE 0.125% (QUARTER STRENGTH) 473 ML BOTTLE TP SCH (08:21)
[2020-10-31 11:15] VITALS: BP 149/83
--- NOTE | 2020-10-31 13:15 | NUR ---
CALL RECEIVED FROM RAMO GONZALEZ WITH NEW ORDERS AND NOTED.
[2020-10-31] MEDS ORDERED: VANCOMYCIN IV 500 MG in IV DEXTROSE 5% 100 ML IV PRN (13:30)
[2020-10-31] MEDS ORDERED: VANCOMYCIN IV 1,000 MG in IV DEXTROSE 5% 250 ML IV ONE (14:00)
[2020-10-31] MEDS: MEROPENEM 500 MG in IV NORMAL SALINE 50 ML IV SCH (15:21)
[2020-10-31 16:01] VITALS: BP 160/87
[2020-10-31] MEDS: hydrALAZINE HCL 50 MG TABLET GT PRN (16:21)
--- NOTE | 2020-10-31 18:38 | NUR ---
DR BAR HERE AND SEEN PATIENT WITH NEW ORDERS AND NOTED.
--- NOTE | 2020-10-31 19:45 | NUR ---
PATIENT AWAKE EYES OPEN,NO S/S OF SOB NO S/S OF CHEST PAIN, PATIENT ON VENT SAT 100%, GTF TOLERATE WELL NO NAUSEA NO VOMITING NOTED, NO DIARRHEA NOTED, R FEMORAL PERMA CATH CLEAN, DRESSING INTACT, LEY CATH DRAINING WITH YELLOW COLOR URINE IN MODERATE AMOUNT. KEPT COMFORTABLE.
[2020-10-31 20:00] VITALS: BP 146/83
[2020-10-31] MEDS: HYDROCODONE/APAP 5-325MG TABLET GT PRN (20:46)
[2020-10-31] MEDS: QUETIAPINE FUMARATE 25 MG TABLET GT SCH (20:47)
[2020-11-01] VITALS: BP 130/72
--- NOTE | 2020-11-01 00:27 | NUR ---
PATIENT ON CONT GALINDO VENT WITH PORTEX # [address] AND SECURED, SUCTION LIGHT PALE YELL TINGE SECRETIONS, PINKISH TINGE AT TIMES, CHANGE HME , CHECK CUFF, ALL VENT ALARMS GOOD, NO VENT CHANGES MADE. Luisa MARTÍNEZ RCP Addendum: 11/01/20 at 0030 by BUBBA MARTÍNEZ RT Amended: Links added.
--- NOTE | 2020-11-01 03:41 | NUR ---
PATIENT AWAKE, GIVEN NARCO FOR PAIN, SLEPT FOR FEW HOURS THEN AWAKE, SUCTION Q2 AND NEEDED. PATIENT GIVEN AMBIEN WITH SOME HELP, KEPT COMFORTABLE.
[2020-11-01 04:00] VITALS: BP 153/66
[2020-11-01] MEDS: PANTOPRAZOLE ORAL SUSPENSION 40 MG SUSPDR.PKT GT SCH (06:14)
[2020-11-01 06:37] LABS: HEMATOCRIT 24.8 % (36.7-47.1); MEAN CORPUSCULAR VOLUME 90.1 fL (73.0-96.2); PLATELET COUNT (AUTO) 258 K/uL (152-348)
[2020-11-01 07:00] LABS: BILIRUBIN,TOTAL 0.4 mg/dL (0.2-1.0); PHOSPHOROUS 5.7 mg/dL (2.5-4.9); POTASSIUM 3.9 mmol/L (3.5-5.1); TOTAL PROTEIN, SERUM 8.1 g/dL (6.4-8.2); VANCOMYCIN,RANDOM 36.5 ug/mL (18.0-26.0)
--- NOTE | 2020-11-01 09:00 | NUR ---
recieved report from system support specialist. pt is on 100% oxygen with trach and ventilator, NPO. has G tube placement. right upper arm midline TKO. galindo catheter in place. pt gets dialysis mondays and wednesdays.. temperature elevated. will continue to monitor.
--- NOTE | 2020-11-01 09:05 | NUR ---
pt has wound on lower extremities. right big toe, right heel. wound care completed and changed.
[2020-11-01 09:35] LABS: THYROID STIMULATING HORMONE 2.109 mIU/mL (0.358-3.740)
[2020-11-01] MEDS: LACTULOSE 20 G/30 ML LIQUID UDC GT SCH (10:04)
[2020-11-01] MEDS: ZINC SULFATE 220 MG CAPSULE GT SCH (10:05)
[2020-11-01] MEDS: VALPROIC ACID 250 MG/5 ML LIQUID UDC GT SCH ×2 (10:05→19:26)
[2020-11-01] MEDS: MIRALAX 17 GM POWD.PACK GT SCH ×2 (10:05→19:26)
[2020-11-01] MEDS: AZATHIOPRINE 50 MG TABLET GT SCH (10:06)
[2020-11-01] MEDS: DOCUSATE SODIUM 100 MG/10 ML LIQUID UDC GT SCH ×2 (10:07→21:14)
[2020-11-01] MEDS: SODIUM HYPOCHLORITE 0.125% (QUARTER STRENGTH) 473 ML BOTTLE TP SCH (10:07)
[2020-11-01] MEDS: NYSTATIN POWDER 15 GM BOTTLE TOP SCH ×2 (10:07→21:32)
[2020-11-01] MEDS: ACETAMINOPHEN 650 MG/20.3 ML LIQUID UDC GT PRN (10:50)
[2020-11-01 11:18] VITALS: BP 153/85
--- NOTE | 2020-11-01 12:50 | NUR ---
dialysis nurse with pt, will draw blood culture.
--- NOTE | 2020-11-01 15:00 | NUR ---
hemodialysis completed. 2L removed. current vitals bp 131/68, HR 100. will continue to monitor pt.
[2020-11-01] MEDS: MEROPENEM 500 MG in IV NORMAL SALINE 50 ML IV SCH (15:38)
[2020-11-01 20:00] VITALS: BP 154/88
--- NOTE | 2020-11-01 20:12 | NUR ---
Patient in bed awake, nonverbal with HOB elevated .Trach in place with vent setting of AC 12 ,TV450 ,35 peep +5 .Tolerated well. No s/s of distress noted.Gtube patent and intact.No residual noted. Midline on right upper arm and perma cath on rt femoral with dressing clean and dry. Nunn catheter draining well with clear yellow output. Bm x1 .Pericare provided.Suctioned patient as needed.Aspiration precaution observed at all times.Will continue to monitor.
[2020-11-01] MEDS: QUETIAPINE FUMARATE 25 MG TABLET GT SCH (21:14)
[2020-11-02] MEDS: ACETAMINOPHEN 650 MG/20.3 ML LIQUID UDC GT PRN (00:42)
[2020-11-02 04:10] VITALS: BP 135/75
[2020-11-02] MEDS: PANTOPRAZOLE ORAL SUSPENSION 40 MG SUSPDR.PKT GT SCH (05:22)
[2020-11-02 06:44] LABS: HEMATOCRIT 24.5 % (36.7-47.1); MEAN CORPUSCULAR HEMOGLOBIN 30.1 uug (23.8-33.4); MEAN CORPUSCULAR VOLUME 90.4 fL (73.0-96.2); PLATELET COUNT (AUTO) 261 K/uL (152-348)
[2020-11-02 07:11] LABS: CREATININE 3.5 mg/dL (0.6-1.3); MAGNESIUM 2.8 mg/dL (1.8-2.4); PHOSPHOROUS 4.6 mg/dL (2.5-4.9); POTASSIUM 3.6 mmol/L (3.5-5.1)
--- NOTE | 2020-11-02 08:00 | NUR ---
received report from steam shovel runner. pt is on 100% oxygen on trach and ventilator. Remains npo, receives medication and nutrition through G tube feeding. pt getting Nepro at 50 ml/hr to run for 20 hrs. off at 0600, on at 1000. no signs of pain. pt nonverbal, opens eyes and responds to stimuli. sinus tachy on tele monitor. will continue plan of care.
[2020-11-02] MEDS: DOCUSATE SODIUM 100 MG/10 ML LIQUID UDC GT SCH ×2 (09:10→20:14)
[2020-11-02] MEDS: LACTULOSE 20 G/30 ML LIQUID UDC GT SCH (09:10)
[2020-11-02] MEDS: VALPROIC ACID 250 MG/5 ML LIQUID UDC GT SCH ×2 (09:10→17:30)
[2020-11-02] MEDS: MIRALAX 17 GM POWD.PACK GT SCH ×2 (09:10→17:30)
[2020-11-02] MEDS: ZINC SULFATE 220 MG CAPSULE GT SCH (09:10)
[2020-11-02] MEDS: NYSTATIN POWDER 15 GM BOTTLE TOP SCH ×2 (09:11→20:15)
[2020-11-02] MEDS: SODIUM HYPOCHLORITE 0.125% (QUARTER STRENGTH) 473 ML BOTTLE TP SCH (09:11)
[2020-11-02] MEDS: AZATHIOPRINE 50 MG TABLET GT SCH (09:17)
[2020-11-02 11:14] VITALS: BP 150/69
[2020-11-02] MEDS: MEROPENEM 500 MG in IV NORMAL SALINE 50 ML IV SCH (15:02)
[2020-11-02 15:28] VITALS: BP 165/86
--- NOTE | 2020-11-02 19:30 | NUR ---
Received patient lying in bed. Awake with eyes open, but non-verbal. In no apparent distress. Trach with vent in place. GT feeding ongoing. HOB elevated. No signs or symptoms of pain or SOB. NSR on tele at 65/min. Midline on right upper arm intact and patent. TKO. Foam dressing on both knees intact. Dressing on right toe and heel area dry and clean. Nunn catheter intact and draining via gravity. Turned and reposition for comfort. Safety measure initiated and call narvaez within reached. Continue to monitor.
[2020-11-02 20:08] VITALS: BP 149/78
[2020-11-02] MEDS: QUETIAPINE FUMARATE 25 MG TABLET GT SCH (20:14)
[2020-11-02] MEDS: NEPRO 1000 ML GT PRN (21:22)
[2020-11-03 00:13] VITALS: BP 147/82
[2020-11-03 04:43] VITALS: BP 142/81
[2020-11-03] MEDS: PANTOPRAZOLE ORAL SUSPENSION 40 MG SUSPDR.PKT GT SCH (06:05)
--- NOTE | 2020-11-03 06:12 | NUR ---
Awake, alert and oriented x2, non-verbal, able to follow simple direction. In no apparent distress. Afebrile. Trach with vent in place. Suction secretions PRN and able to obtain thin whitish secretions. GT feeding/flushing tolerated well. HOB kept elevated. No signs or symptoms of pain or SOB. NSR on tele at 88/min. Midline on right upper arm intact and patent. Foam dressing on both knees intact. Treatment done to wound on right toe and heel area per treatment order. Nunn catheter intact and draining via gravity. Kept clean and dry. Safety measure maintained and call narvaez within reached.
[2020-11-03 06:36] LABS: HEMATOCRIT 25.6 % (36.7-47.1); MEAN CORPUSCULAR HEMOGLOBIN 30.7 uug (23.8-33.4); MEAN CORPUSCULAR VOLUME 90.4 fL (73.0-96.2); PLATELET COUNT (AUTO) 357 K/uL (152-348)
[2020-11-03 06:56] LABS: BILIRUBIN,TOTAL 0.4 mg/dL (0.2-1.0); CREATININE 4.2 mg/dL (0.6-1.3); MAGNESIUM 3.1 mg/dL (1.8-2.4); PHOSPHOROUS 6.5 mg/dL (2.5-4.9); POTASSIUM 3.8 mmol/L (3.5-5.1); TOTAL PROTEIN, SERUM 8.6 g/dL (6.4-8.2)
--- NOTE | 2020-11-03 07:44 | NUR ---
PT STARTED ON DIALYSIS.
[2020-11-03 07:45] VITALS: BP 150/66
--- NOTE | 2020-11-03 08:00 | NUR ---
RECEIVED CHANGE OF SHIFT REPORT, PT IN BED ON FIRST STEP AIR MATTRESS, PT IN VENT, TACH, GTUBE FEEDING. PT ABLE TO OPEN EYE AND NOD TO YES/NO QUESTIONS. PT ON TELE MONITOR, NSR, PT VOIDING VIA LEY, ML ON CEFERINO, TKO PATENT, INTACT. PT CURRENTLY RECEIVING DIALYSIS, WILL CONTINUE TO MONITOR.
[2020-11-03 11:18] VITALS: BP 91/63
--- NOTE | 2020-11-03 12:00 | NUR ---
PT COMPLETED DIALYSIS, PER DIALYSIS NURSE, RAGINI PT TOLERATED WELL, 1.3L OUT, BP 119/77 HR 108, WILL CONTINUE TO MONITOR.
[2020-11-03] MEDS: LACTULOSE 20 G/30 ML LIQUID UDC GT SCH (12:50)
[2020-11-03] MEDS: MIRALAX 17 GM POWD.PACK GT SCH ×2 (12:51→16:06)
[2020-11-03] MEDS: SODIUM HYPOCHLORITE 0.125% (QUARTER STRENGTH) 473 ML BOTTLE TP SCH (12:51)
[2020-11-03] MEDS: DOCUSATE SODIUM 100 MG/10 ML LIQUID UDC GT SCH ×2 (12:51→20:12)
[2020-11-03] MEDS: ZINC SULFATE 220 MG CAPSULE GT SCH (12:51)
[2020-11-03] MEDS: AZATHIOPRINE 50 MG TABLET GT SCH (12:51)
[2020-11-03] MEDS: VALPROIC ACID 250 MG/5 ML LIQUID UDC GT SCH ×2 (12:51→16:06)
[2020-11-03] MEDS: NYSTATIN POWDER 15 GM BOTTLE TOP SCH ×2 (12:52→20:12)
[2020-11-03 14:47] VITALS: BP 126/73
[2020-11-03] MEDS: MEROPENEM 500 MG in IV NORMAL SALINE 50 ML IV SCH (15:56)
[2020-11-03] MEDS ORDERED: EPOETIN ALFA 10,000 UNITS/ML VIAL SQ ONE (18:00)
--- NOTE | 2020-11-03 20:00 | NUR ---
Received patient lying in bed. Awake, alert oriented x2, non-verbal but nods head to answer simple questions. In no apparent distress. Trach with vent in place. GT feeding ongoing. HOB elevated. No signs or symptoms of pain or SOB. Suction secretions PRN. Cooling measure initiated for temp of 100.9. Will also give Tylenol per order. NSR on tele at 95/min. Midline on right upper arm intact and patent. Foam dressing on both knees intact. Dressing on right toe and heel area dry and clean. Nunn catheter intact and draining via gravity. Safety measure initiated and call narvaez within reached. Continue to monitor.
[2020-11-03 20:05] VITALS: BP 139/91
[2020-11-03] MEDS: ACETAMINOPHEN 650 MG/20.3 ML LIQUID UDC GT PRN (20:11)
[2020-11-03] MEDS: QUETIAPINE FUMARATE 25 MG TABLET GT SCH (20:12)
--- NOTE | 2020-11-03 21:00 | NUR ---
Rechecked Temp. Now 98.6 axillary.
--- NOTE | 2020-11-03 21:30 | NUR ---
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 Will carry out order.
[2020-11-03] MEDS: LINEZOLID 600 MG TABLET PO SCH (22:13)
[2020-11-04] VITALS: BP 128/74
--- NOTE | 2020-11-04 00:11 | NUR ---
PATIENT ON CONT GALINDO VENT WITH PORTEX # [address] AND SECURED, WITH CURRENT VENT SETTINGS, A/C 12, 450ML, PEEP5 , 35%, PT WITH MOSTLY CONTROLLED VENTILATION, SUCTIONED LIGHT PALE YELL TINGE SECRETIONS, AND SUCTION MOUTH WITH YENIFERUER, VERY PROD. CHANGE HME, CUFF, NO VENT CHANGES MADE, ALL VENT ALARMS GOOD, PULSE OXY AT BEDSIDE CONT, SAT 100%. - P/F 285 . D TANYA GUERRAP Addendum: 11/04/20 at 0017 by BUBBA MARTÍNEZ RT Amended: Links added.
[2020-11-04 04:10] VITALS: BP 128/74
[2020-11-04] MEDS: PANTOPRAZOLE ORAL SUSPENSION 40 MG SUSPDR.PKT GT SCH (06:01)
--- NOTE | 2020-11-04 06:20 | NUR ---
Awake, alert and oriented x2, non-verbal, able to follow simple direction. In no acute distress. Afebrile. Trach with vent in place. Suction secretions PRN and able to obtain thin whitish secretions. GT feeding/flushing tolerated well. No signs or symptoms of pain or SOB. NSR on tele at 65/min. Midline on right upper arm intact and patent. Nunn catheter intact and draining via gravity. Kept clean and dry. Safety measure maintained and call narvaez within reached.
[2020-11-04 06:27] LABS: HEMATOCRIT 25.6 % (36.7-47.1); MEAN CORPUSCULAR VOLUME 91.2 fL (73.0-96.2); PLATELET COUNT (AUTO) 319 K/uL (152-348)
[2020-11-04 06:40] LABS: CREATININE 3.2 mg/dL (0.6-1.3); MAGNESIUM 2.8 mg/dL (1.8-2.4); PHOSPHOROUS 5.7 mg/dL (2.5-4.9); POTASSIUM 3.7 mmol/L (3.5-5.1)
--- NOTE | 2020-11-04 08:05 | NUR ---
Sleeping, on moderate high back rest. Trach to vent settings of TV 450, AC 12, FIO2 35, PEEP 5.
[2020-11-04] MEDS: MIRALAX 17 GM POWD.PACK GT SCH ×2 (09:00→17:00)
[2020-11-04] MEDS: DOCUSATE SODIUM 100 MG/10 ML LIQUID UDC GT SCH ×2 (09:09→20:48)
[2020-11-04] MEDS: VALPROIC ACID 250 MG/5 ML LIQUID UDC GT SCH ×2 (09:09→18:00)
[2020-11-04] MEDS: LACTULOSE 20 G/30 ML LIQUID UDC GT SCH (09:09)
[2020-11-04] MEDS: LINEZOLID 600 MG TABLET PO SCH ×2 (09:10→20:50)
[2020-11-04] MEDS: ZINC SULFATE 220 MG CAPSULE GT SCH (09:10)
[2020-11-04] MEDS: FOLIC ACID/VITAMIN B COMP W-C TABLET PEG SCH (09:10)
[2020-11-04] MEDS: AZATHIOPRINE 50 MG TABLET GT SCH (09:10)
[2020-11-04] MEDS: SODIUM HYPOCHLORITE 0.125% (QUARTER STRENGTH) 473 ML BOTTLE TP SCH (09:11)
[2020-11-04] MEDS: NYSTATIN POWDER 15 GM BOTTLE TOP SCH ×2 (09:11→20:50)
[2020-11-04 12:00] VITALS: BP 130/80
--- NOTE | 2020-11-04 12:00 | NUR ---
Family at bedside, giving bedside care
[2020-11-04] MEDS: MEROPENEM 500 MG in IV NORMAL SALINE 50 ML IV SCH (15:28)
--- NOTE | 2020-11-04 16:00 | NUR ---
Secretions suctioned. Trach and oral care done. Wound care done. With incontinence care done. Repositioned comfortably
[2020-11-04 16:37] VITALS: BP 131/74
--- NOTE | 2020-11-04 18:44 | NUR ---
Repositioned comfortably. Afebrile. O2 sat 100%, same vent settings
[2020-11-04 20:06] VITALS: BP 149/87
[2020-11-04] MEDS: QUETIAPINE FUMARATE 25 MG TABLET GT SCH (20:48)
[2020-11-04] MEDS: HYDROCODONE/APAP 5-325MG TABLET GT PRN (20:49)
--- NOTE | 2020-11-04 21:09 | NUR ---
PATIENT ON CONT GALINDO VENT WITH PORTEX # [address] AND SECURED, WITH CURRENT VENT SETTINGS, A/C 12, 450ML, PEEP 5, FIO2 @ 35%, SUCTIONED THICK WHITISH SECRETIONS, AND ORAL CARE, ALREADY CHANGED DARCIE, HME CHANGED , NO VENT CHANGES MADE, ALL VENT ALARMS GOOD, PT WITH CONT PULSE OXY CONT AT BEDSIDE, SAT 100%, D TANYA DRAWER HARDWARE WORKER Addendum: 11/04/20 at 2111 by BUBBA MARTÍNEZ RT Amended: Links added.
[2020-11-05 00:06] VITALS: BP 126/85
[2020-11-05 04:06] VITALS: BP 147/91
[2020-11-05] MEDS: PANTOPRAZOLE ORAL SUSPENSION 40 MG SUSPDR.PKT GT SCH (06:04)
[2020-11-05 06:05] LABS: HEMATOCRIT 23.6 % (36.7-47.1); MEAN CORPUSCULAR VOLUME 90.8 fL (73.0-96.2); PLATELET COUNT (AUTO) 405 K/uL (152-348)
[2020-11-05 06:13] LABS: BILIRUBIN,TOTAL 0.4 mg/dL (0.2-1.0); CREATININE 3.9 mg/dL (0.6-1.3); MAGNESIUM 2.8 mg/dL (1.8-2.4); PHOSPHOROUS 6.1 mg/dL (2.5-4.9); POTASSIUM 3.7 mmol/L (3.5-5.1); TOTAL PROTEIN, SERUM 8.5 g/dL (6.4-8.2)
--- NOTE | 2020-11-05 07:40 | NUR ---
Pt received in bed, laying semi-Dumont's, unable to communicate.. Pt trach: Portex 8, in place and secure with tie.. Continuous mechanical ventilation with vent: Merida, settings: A/C 12, Vt 450, PEEP +5, FiO2 35%, tolerating well, will continue to monitor..
[2020-11-05] MEDS: LACTULOSE 20 G/30 ML LIQUID UDC GT SCH (08:57)
[2020-11-05] MEDS: ZINC SULFATE 220 MG CAPSULE GT SCH (08:58)
[2020-11-05] MEDS: FOLIC ACID/VITAMIN B COMP W-C TABLET PEG SCH (08:58)
[2020-11-05] MEDS: DOCUSATE SODIUM 100 MG/10 ML LIQUID UDC GT SCH ×2 (08:58→20:23)
[2020-11-05] MEDS: MIRALAX 17 GM POWD.PACK GT SCH ×2 (08:58→16:15)
[2020-11-05] MEDS: VALPROIC ACID 250 MG/5 ML LIQUID UDC GT SCH ×2 (08:58→16:15)
[2020-11-05] MEDS: AZATHIOPRINE 50 MG TABLET GT SCH (08:58)
[2020-11-05] MEDS: LINEZOLID 600 MG TABLET PO SCH ×2 (08:58→20:26)
[2020-11-05] MEDS: SODIUM HYPOCHLORITE 0.125% (QUARTER STRENGTH) 473 ML BOTTLE TP SCH (09:00)
[2020-11-05] MEDS: NYSTATIN POWDER 15 GM BOTTLE TOP SCH ×2 (09:00→20:34)
--- NOTE | 2020-11-05 10:00 | NUR ---
Anthony Heels floated. lRight heel, buttocks redness, Left inner knee and right inner knee wound care done as ordered. PT nephro 50 ml started. No residual noted. Suctioned white frothy sputum. Vent setting as ordered. G tube site no redness noted. Call light is within reach.
[2020-11-05 11:07] VITALS: BP 147/57
[2020-11-05 15:08] VITALS: BP 132/70
[2020-11-05] MEDS: MEROPENEM 500 MG in IV NORMAL SALINE 50 ML IV SCH (15:53)
--- NOTE | 2020-11-05 18:00 | NUR ---
Sputum and Rapid COVID nares swab done and sent to lab.
[2020-11-05 20:06] VITALS: BP 152/86
[2020-11-05] MEDS: QUETIAPINE FUMARATE 25 MG TABLET GT SCH (20:23)
--- NOTE | 2020-11-05 21:57 | NUR ---
PATIENT ON CONT GALINDO VENT WITH PORTEX # [address] AND SECURED,WITH CURRENT VENT SETTINGS, A/C 12, 450ML, PEEP5, FIO2 @35%, PT WITH MOSTLY CONTROLLED VENTILATION, CHECK CUFF, TRACH CARE, ALL VENT ALARMS GOOD, NO VENT CHANGES MADE, PT WITH CONT PULSE OXY AT BEDSIDE, SAT 100% APPROX, SUCTIONED LIGHT PALE YELL TINGE SECRETIONS . Luisa GUERRAP Addendum: 11/05/20 at 2200 by BUBBA MARTÍNEZ RT Amended: Links added.
[2020-11-06 00:03] VITALS: BP 151/93
[2020-11-06] MEDS: ACETAMINOPHEN 650 MG/20.3 ML LIQUID UDC GT PRN ×2 (00:47→10:33)
[2020-11-06 04:06] VITALS: BP 135/76
[2020-11-06] MEDS: PANTOPRAZOLE ORAL SUSPENSION 40 MG SUSPDR.PKT GT SCH (05:35)
--- NOTE | 2020-11-06 06:07 | NUR ---
Pt slept intermittently throughout the night. No distress noted. GTube feeding stopped at 0600H, no residual. IV site is intact. Tolerated all medications given. Suctioned as needed. No other issues or concerns at this time, will endorse to day shift.
[2020-11-06 06:29] LABS: HEMATOCRIT 24.6 % (36.7-47.1); MEAN CORPUSCULAR HEMOGLOBIN 31.1 uug (23.8-33.4); MEAN CORPUSCULAR VOLUME 90.8 fL (73.0-96.2); PLATELET COUNT (AUTO) 478 K/uL (152-348)
[2020-11-06 06:50] LABS: CREATININE 5.1 mg/dL (0.6-1.3); MAGNESIUM 3.2 mg/dL (1.8-2.4); PHOSPHOROUS 5.9 mg/dL (2.5-4.9); POTASSIUM 4.1 mmol/L (3.5-5.1)
--- NOTE | 2020-11-06 07:12 | NUR ---
received critical lab result [id number]. dr. auguste made aware. pt is on dialysis scheduled for today.
--- NOTE | 2020-11-06 07:50 | NUR ---
received in bed hob elevated awake and responsive. trach intact and patent connected to ventilator, current settings tolerated. no resp distress. grinding his teeth loudly. able to respond by nodding/shaking his head. denies pain. gt intact and patent. safety measures in place. kept comfortable. Addendum: 11/06/20 at 0754 by DIOR SHEEHAN RN sinus tachy on monitor. RT with the pt suctioned and tolerated well.
[2020-11-06] MEDS: LINEZOLID 600 MG TABLET PO SCH ×2 (08:02→21:31)
[2020-11-06] MEDS: AZATHIOPRINE 50 MG TABLET GT SCH (08:03)
[2020-11-06] MEDS: ZINC SULFATE 220 MG CAPSULE GT SCH (08:04)
[2020-11-06] MEDS: FOLIC ACID/VITAMIN B COMP W-C TABLET PEG SCH (08:04)
[2020-11-06] MEDS: DOCUSATE SODIUM 100 MG/10 ML LIQUID UDC GT SCH ×2 (08:05→21:31)
[2020-11-06] MEDS: VALPROIC ACID 250 MG/5 ML LIQUID UDC GT SCH ×2 (08:05→17:21)
[2020-11-06] MEDS: LACTULOSE 20 G/30 ML LIQUID UDC GT SCH (08:06)
[2020-11-06] MEDS: MIRALAX 17 GM POWD.PACK GT SCH ×2 (08:06→17:21)
[2020-11-06] MEDS: SODIUM HYPOCHLORITE 0.125% (QUARTER STRENGTH) 473 ML BOTTLE TP SCH (08:07)
[2020-11-06] MEDS: NYSTATIN POWDER 15 GM BOTTLE TOP SCH ×2 (08:08→21:32)
[2020-11-06] MEDS: hydrALAZINE HCL 50 MG TABLET GT PRN (10:33)
--- NOTE | 2020-11-06 10:39 | NUR ---
temp 100.7 cooling measures and tylenol prn given
[2020-11-06 11:34] VITALS: BP 159/93
--- NOTE | 2020-11-06 11:38 | NUR ---
asked dr. swain if pt has hd today and informed of bun result this morning. he said he will place order. clerk supervisor made aware.
[2020-11-06] MEDS: HYDROCODONE/APAP 5-325MG TABLET GT PRN (12:06)
[2020-11-06] MEDS: MEROPENEM 500 MG in IV NORMAL SALINE 50 ML IV SCH (14:53)
[2020-11-06 16:00] VITALS: BP 144/91
--- NOTE | 2020-11-06 17:41 | NUR ---
BRENNAN RN here to dialyze pt.
--- NOTE | 2020-11-06 19:00 | NUR ---
resting in bed hob elevated. sr on tele heart rate 75. trach is intact and patent tolerating current vent settings. no episode of sob or desaturation. suctioned prn. galindo catheter intact yellow urine. eleonora midline intact and patent. gt intact and patent. due meds given and tolerated well. changed and repositioned prn. safety measures maintained. endorsed. Addendum: 11/06/20 at 1926 by DIOR SHEEHAN RN also endorsed to next shift to call pharmacy for procrit when dialysis is done.
[2020-11-06] MEDS ORDERED: MEROPENEM 500 MG in IV NORMAL SALINE 50 ML IV ONE (20:00)
[2020-11-06] MEDS: QUETIAPINE FUMARATE 25 MG TABLET GT SCH (21:31)
[2020-11-07] MEDS: NEPRO 1000 ML GT PRN (01:52)
--- NOTE | 2020-11-07 05:24 | NUR ---
No distress noted. Pt suctioned as needed. Dialysis done 11/06, 2250cc removed. Merrem given post HD. GTube running ordered feeding, no residual. Nunn intact. Pt does not produce a lot of urine due renal function, but urine that is draining is clear donna. Safety and comfort provided. Will endorse to day shift.
[2020-11-07] MEDS: ACETAMINOPHEN 650 MG/20.3 ML LIQUID UDC GT PRN (06:19)
[2020-11-07] MEDS: PANTOPRAZOLE ORAL SUSPENSION 40 MG SUSPDR.PKT GT SCH (06:19)
--- NOTE | 2020-11-07 07:30 | NUR ---
received in bed awake and responsive. no resp distress noted. trach intact and patent tolerating current vent settings. gt intact, off for now. galindo catheter intact draining yellow urine. safety measures in place. will continue to monitor.
--- NOTE | 2020-11-07 07:30 | NUR ---
PATIENT REMAINS ON CONTINUOUS MECHANICAL VENTILATION VIA GALINDO VENTILATOR. VENT SETTINGS REMAIN THE SAME ORDERED. PT IS TRACHED WITH A PORTEX 8 CUFFED TRACH. TRACH CARE DONE. SUCTION PRN. HME CHANGED. NO S/S OF RESPIRATORY DISTRESS NOTED. CONTINUOUS PULSE OX IS AT BEDSIDE. ALARMS CHECKED, ARE ON AND AUDIBLE. WILL CONTINUE TO MONITOR.
[2020-11-07] MEDS: LACTULOSE 20 G/30 ML LIQUID UDC GT SCH (08:11)
[2020-11-07] MEDS: VALPROIC ACID 250 MG/5 ML LIQUID UDC GT SCH ×2 (08:12→16:22)
[2020-11-07] MEDS: FOLIC ACID/VITAMIN B COMP W-C TABLET PEG SCH (08:12)
[2020-11-07] MEDS: LINEZOLID 600 MG TABLET PO SCH ×2 (08:12→20:21)
[2020-11-07] MEDS: MIRALAX 17 GM POWD.PACK GT SCH ×2 (08:12→16:22)
[2020-11-07] MEDS: ZINC SULFATE 220 MG CAPSULE GT SCH (08:12)
[2020-11-07] MEDS: DOCUSATE SODIUM 100 MG/10 ML LIQUID UDC GT SCH ×2 (08:12→20:21)
[2020-11-07] MEDS: AZATHIOPRINE 50 MG TABLET GT SCH (08:13)
[2020-11-07] MEDS: NYSTATIN POWDER 15 GM BOTTLE TOP SCH ×2 (08:21→21:54)
[2020-11-07] MEDS: SODIUM HYPOCHLORITE 0.125% (QUARTER STRENGTH) 473 ML BOTTLE TP SCH (08:22)
[2020-11-07 11:31] VITALS: BP 111/53
[2020-11-07] MEDS ORDERED: EPOETIN ALFA-EPBX 10,000 UNIT/ML VIAL SQ ONE (14:00)
[2020-11-07] MEDS: MEROPENEM 500 MG in IV NORMAL SALINE 50 ML IV SCH (14:08)
[2020-11-07 15:43] VITALS: BP 132/81
[2020-11-07] MEDS ORDERED: EPOETIN ALFA 10,000 UNITS/ML VIAL SQ ONE (16:00)
--- NOTE | 2020-11-07 18:55 | NUR ---
patient currently laying in bed in no acute distress. patient remains on vent tolerating current settings well ac 12 vt450, 35% +5, trach in place and patent, no episodes of sob during shift. Gt remains in place and patent, ongoing feeding tolerated well, all gt meds administered by gravity and tolerated well. f/c in place and patent, draining yellow urine. Patient with no facial grimacing of pain or discomfort during shift. V/S remained stable. repositioned q 2 hours for comfort, kept clean and dry. call light within reach, side rails up x 2.
--- NOTE | 2020-11-07 19:45 | NUR ---
PATIENT AWAKE RESPOND TO VERBAL STIMULI, NO SOB NO CHEST PAIN, TELE MONITOR SINUS RHYTHM, NO COMPLAIN OF PAIN, ON GTF TOLERATE WELL, LEY CATH PATENT, ON CONTACT ISOLATION VRE WOUND. AFEBRILE, ON VENT ORDERED, NO DESATURATION NOTED, SAT 100%, CONT TO MONITOR.
[2020-11-07 20:10] VITALS: BP 143/81
[2020-11-07] MEDS: QUETIAPINE FUMARATE 25 MG TABLET GT SCH (20:21)
[2020-11-08] VITALS: BP 146/83
[2020-11-08] MEDS: HYDROCODONE/APAP 5-325MG TABLET GT PRN ×3 (03:34→16:13)
[2020-11-08 04:10] VITALS: BP 146/75
--- NOTE | 2020-11-08 04:44 | NUR ---
PATIENT AWAKE, NO SOB NO CHEST PAIN, COMPLAIN OF GEN BODY PAIN, MEDICATED FOR PAIN WITH EFFECTIVE RESULTS, SUCTIONED, NEEDED. TURN AND REPOSITION, Q 2 AND TOLERATED, CONT TO MONITOR.
[2020-11-08] MEDS: PANTOPRAZOLE ORAL SUSPENSION 40 MG SUSPDR.PKT GT SCH (05:49)
[2020-11-08 07:22] LABS: HEMATOCRIT 21.4 % (36.7-47.1); MEAN CORPUSCULAR HEMOGLOBIN 31.4 uug (23.8-33.4); MEAN CORPUSCULAR VOLUME 91.2 fL (73.0-96.2); PLATELET COUNT (AUTO) 403 K/uL (152-348)
[2020-11-08 07:28] LABS: CREATININE 3.7 mg/dL (0.6-1.3); MAGNESIUM 2.9 mg/dL (1.8-2.4); PHOSPHOROUS 4.3 mg/dL (2.5-4.9); POTASSIUM 3.5 mmol/L (3.5-5.1)
[2020-11-08 09:00] VITALS: BP 150/86
[2020-11-08] MEDS: NYSTATIN POWDER 15 GM BOTTLE TOP SCH (09:00)
[2020-11-08] MEDS: SODIUM HYPOCHLORITE 0.125% (QUARTER STRENGTH) 473 ML BOTTLE TP SCH (09:00)
[2020-11-08] MEDS: DOCUSATE SODIUM 100 MG/10 ML LIQUID UDC GT SCH (10:17)
[2020-11-08] MEDS: FOLIC ACID/VITAMIN B COMP W-C TABLET PEG SCH (10:20)
[2020-11-08] MEDS: VALPROIC ACID 250 MG/5 ML LIQUID UDC GT SCH ×2 (10:20→16:13)
[2020-11-08] MEDS: AZATHIOPRINE 50 MG TABLET GT SCH (10:20)
[2020-11-08] MEDS: LACTULOSE 20 G/30 ML LIQUID UDC GT SCH (10:20)
[2020-11-08] MEDS: LINEZOLID 600 MG TABLET PO SCH (10:20)
[2020-11-08] MEDS: ZINC SULFATE 220 MG CAPSULE GT SCH (10:20)
[2020-11-08] MEDS: MIRALAX 17 GM POWD.PACK GT SCH ×2 (10:21→16:13)
[2020-11-08 12:30] VITALS: BP 138/91
[2020-11-08] MEDS: NEPRO 1000 ML GT PRN (12:52)
[2020-11-08] MEDS: MEROPENEM 500 MG in IV NORMAL SALINE 50 ML IV SCH (14:24)
[2020-11-08 16:00] VITALS: BP 162/75
[2020-11-08] MEDS ORDERED: LINE600T15 PO (16:37)
[2020-11-08] MEDS ORDERED: MERO500V23 IV (16:37)
--- NOTE | 2020-11-08 18:35 | NUR ---
Patient is unable to communicate but tries to nod. PRN pain medication given during the shift. Ongoing dialysis at the end of the shift. hgb 7.4, lab report. notified at 0800H. Patient is for discharge today, Report given to ANATOLIY Almaguer. Suctioned as needed, tolerated well. Frequent visual check done. Kept call light within reach. Assisted with ADLs. All needs attended. Kept environment safe. All due meds given as ordered. Will endorse to the next shift for continuity of care.
--- NOTE | 2020-11-08 20:00 | NUR ---
DC to [facility] in stable condition.
== END 2020-11-08 20:00 | DRG 720 ==
LOC: TELE-TD3 23:26 → TELE3 10-27 15:06
PROVIDERS: ADMIT Student in an Organized Health Care Education/Training Program; ATTEND Internal Medicine
PROC: 5A1955Z Respiratory Ventilation, Greater than 96 Consecutive Hours (ICD-10-PCS; principal; 2020-10-25)
PROC: 30233N1 Transfusion of Nonautologous Red Blood Cells into Peripheral Vein, Percutaneous Approach (ICD-10-PCS; 2020-10-27)
PROC: 5A1D70Z Performance of Urinary Filtration, Intermittent, Less than 6 Hours Per Day (ICD-10-PCS; 2020-10-27)
PROC: 0JBN0ZZ Excision of Right Lower Leg Subcutaneous Tissue and Fascia, Open Approach (ICD-10-PCS; 2020-11-02)
PROC: 0JBP0ZZ Excision of Left Lower Leg Subcutaneous Tissue and Fascia, Open Approach (ICD-10-PCS; 2020-11-02)
DX: A41.9 Sepsis, unspecified organism (principal); J69.0 Pneumonitis due to inhalation of food and vomit; G93.49 Other encephalopathy; E43 Unspecified severe protein-calorie malnutrition; J96.11 Chronic respiratory failure with hypoxia; J96.12 Chronic respiratory failure with hypercapnia; L89.893 Pressure ulcer of other site, stage 3; R53.2 Functional quadriplegia; D69.6 Thrombocytopenia, unspecified; D68.59 Other primary thrombophilia; Z93.0 Tracheostomy status; Z99.11 Dependence on respirator [ventilator] status; N18.6 End stage renal disease; D63.8 Anemia in other chronic diseases classified elsewhere; E87.1 Hypo-osmolality and hyponatremia; E11.22 Type 2 diabetes mellitus with diabetic chronic kidney disease; N39.0 Urinary tract infection, site not specified; E11.40 Type 2 diabetes mellitus with diabetic neuropathy, unspecified; E83.52 Hypercalcemia; Z93.1 Gastrostomy status; Z86.14 Personal history of Methicillin resistant Staphylococcus aureus infection; Z74.01 Bed confinement status; Z99.2 Dependence on renal dialysis; Z87.01 Personal history of pneumonia (recurrent); Z87.440 Personal history of urinary (tract) infections; Z68.21 Body mass index [BMI] 21.0-21.9, adult; E11.621 Type 2 diabetes mellitus with foot ulcer; L97.419 Non-pressure chronic ulcer of right heel and midfoot with unspecified severity; Z86.73 Personal history of transient ischemic attack (TIA), and cerebral infarction without residual deficits; J98.11 Atelectasis; R13.10 Dysphagia, unspecified; Z20.822 Contact with and (suspected) exposure to COVID-19
CPT/HCPCS: 36415; 36600; 70030-TC; 71045; 76770; 83605; 83735; 83970; 84100; 84443; 85025; 86706; 86850; 86900; 86901; 86920; 87040; 87070; 87077; 87086; 87340; 90937; 94002; 94003; 94760; A4217; A6209; G0378; J0885; J1580; J2185; J3370; J3490; J7030; J7040; J7060; J7500; P9016; P9021